=== PATIENT | male | born 1960 | race Caucasian/White ===

== ENCOUNTER 2023-10-14 08:08 | Outpatient (AMB) | payer OTHER, SELFPAY ==
--- NOTE | 2023-10-14 08:11 | A.OFFPC_ITS ---
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: No Accompanied by: Self / Same As Patient Allergies cat dander Allergy (Intermediate, Verified 10/14/23 08:50) Sneezing dog dander Allergy (Intermediate, Verified 10/14/23 08:50) Sneezing Seasonal Allergies Allergy (Intermediate, Verified 10/14/23 08:50) Sneezing Medication List - Last Reconciled 10/14/23 by JOSE Slater aspirin 81 mg PO DAILY atorvastatin 80 mg PO DAILY cholecalciferol (vitamin D3) 50 mcg PO DAILY clopidogrel 75 mg PO DAILY mecobalamin (vitamin B12) mcg PO metoprolol succinate ER 50 mg PO DAILY omega-3 acid ethyl esters 2 caps PO BID sertraline 100 mg PO DAILY Tobacco use date assessed: 10/14/23 Dental Screening Dental Screen Date: 10/14/23 Did you have a dental visit in the last 12 months?: No Did you have a dental problem in the last 6 months where you did not have access to dental care?: No Was dental information given to patient?: Patient has dentist HPI HPI Comments History of Present Illness Details No previous medical records available to me today 63-year-old male with CAD S/P triple byp ass 2016, psoriasis, plantar fasciatis , MDD, hyperlipidemia Health maintenance Colonoscopy PSA density within normal limits Vaccines flu shot to be given today [facility] Here today to establish care. We will be out of his medication today. Needs refills on everything. Reports that he is taking as directed. Offers no complaints. [facility] Medical History (Updated 10/14/23 @ 13:48 by LORRAINE Slater-MARISABEL) Stenosis of other cardiac prosthetic devices, implants and grafts, initial encounter Psoriasis Plantar fasciitis Shoulder injury Heart disease High cholesterol High blood pressure Surgical History (Updated 10/14/23 @ 08:46 by Elizabeth Hollins MA) H/O turbinectomy H/O endoscopic sinus surgery H/O nasal septoplasty Family History (Updated 10/14/23 @ 08:53 by Annette Vazquez CMA) Mother Ovarian cancer Father High blood pressure High blood cholesterol Cardiovascular disease Unknown High blood pressure High blood cholesterol Cardiovascular disease Social History Housing: House Patient Tobacco Use Status: Former Tobacco user e-Cigarette/Vaping Use: Never Used service: No Current occupational status: employed Current occupation: [employer] Cognitive needs: No Hearing needs: No Vision needs: Yes Questionnaire PHQ-9 Over the last 2 weeks, how often have you been bothered by any of the following problems? 1. Little interest or pleasure in doing things: nearly every day 2. Feeling down, depressed, or hopeless: not at all 3. Trouble falling or staying asleep, or sleeping too much: not at all 4. Feeling tired or having little energy: nearly every day 5. Poor appetite or overeating: several days 6. Feeling bad about yourself - or that you are a failure or have let yourself or your family down: not at all 7. Trouble concentrating on things, such as reading the newspaper or watching television: not at all 8. Moving or speaking so slowly that other people could have noticed. Or the opposite - being so fidgety or restless that you have been moving around a lot more than usual: not at all 9. Thoughts that you would be better off or of hurting yourself in some way: not at all Total score: 7 Depression Screening Interpretation: Positive Depression Screening Follow-up: Existing condition Depression Screening Done: Yes 19585 - PHQ-9 Billing: Yes Source: Developed by Drs. Manny Simpson, Isabella Pérez, David Herring and colleagues, with an educational stacie from [employer]. Thrive Questionnaire Date Thrive assessed: 10/14/23 I am a: Patient What is your living situation today?: I have a steady place to live Within the past 12 months, did the food you bought not last and you didn't have the money to get more?: Never true Within the past 12 months, did you worry whether your food would run out before you got money to buy more?: Never true Do you have trouble paying for medicines?: No Do you have trouble getting transportation to medical appointments?: No Do you have trouble paying your heating and electricity bill?: No Do you have trouble taking care of your child, family member or friend?: No Do you have trouble with day-to-day activities such as bathing, preparing meals, shopping, managing finances, etc.?: No Are you currently unemployed and looking for a job?: No Are you interested in more education?: No Please select the resources that you would like help with: None Currently or been in a relationship where the following occur: no concerns reported THRIVE Score: 0 AUDIT C Alcohol Use Questionnaire (AUDIT-C) 1. How often do you have a drink containing alcohol?: 4 or more times a week 2. How many drinks containing alcohol do you have on a typical day when you are drinking?: 1 or 2 3. How often do you have six or more drinks on one occasion?: Never Total Score: 4 Score Reviewed/Action Taken: Yes VEE-7 AMB Questionnaire VEE-7 Date VEE - 7 assessed: 10/14/23 Feeling nervous, anxious, or on edge: 2 = More than half the days Not being able to stop or control worryin = Not at all Worrying too much about different things: 0 = Not at all Trouble relaxin = Not at all Being so restless that it is hard to sit still: 0 = Not at all Becoming easily annoyed or irritable: 0 = Not at all Feeling afraid as if something awful might happen: 0 = Not at all Total VEE-7 score (0-4 normal; 5-9 mild; 10-14 moderate; 15-21 severe): 2 Source: Developed by Drs. Manny Simpson, Isabella Pérez, David Herring and colleagues, with an educational stacie from [employer]. VEE-7 Assessment Billing VEE-7 Assessment Tool: VEE-7 Assessment 32663 Review of Systems Const All systems reviewed & are unremarkable except as noted in HPI and below Physical exam (Primary Care) Vital Signs: Last Vital Signs Temp 97.7 F 10/14/23 08:16 Pulse 78 10/14/23 08:16 Resp 13 10/14/23 08:16 BP 128/76 10/14/23 08:16 Pulse Ox 98 10/14/23 08:16 Oxygen Delivery Method Room Air 10/14/23 08:16 BMI result Body Mass Index 36.1 BMI Assessment/Plan discussion: High BMI High, discussed plan: weight reduction Tobacco/Smoking Status: Tobacco use Status Tobacco use date assessed 10/14/23 10/14/23 08:30 Patient Tobacco Use Status Former Tobacco user 10/14/23 08:30 e-Cigarette/Vaping Use Never Used 10/14/23 08:30 PHQ-9: PHQ-9 Score PHQ-9: Total score 7 10/14/23 09:59 Depression Screening Interpretation: Positive Depression Screening Follow-up: Existing condition Thrive Assessment: Date of Thrive Assessment Date Thrive assessed 10/14/23 10/14/23 08:30 Currently or been in a relationship where the following occur: no concerns reported Const Other: alert oriented NAD MMM RRR LS CTAB Trace edema BLE Office Procedures Flu Questionnaire Does the patient have a severe egg allergy?: No Does the patient have severe life threatening allergies?: No Does the patient have a fever or illness today?: No Has the patient ever had Guillain-[place] Syndrome?: No Has the patient ever had any past reaction to a flu shot?: No Immunizations flu vacc [id number] 6mos up(PF) 60 mcg(15 mcgx4)/0.5 mL IM syringe Performing Provider: DARON Slater Performing Location: [facility] [place] [facility] Administered by: Heydi Chilel CMA on 10/14/23 09:59 Dose Route Admin Location Dispensed Lot Number Expiration Date NDC [employer] 0.5 mL IM Left Deltoid 0.5 mL [id number] 02/07/24 99148-906-86 [id number] VIS Given Date VIS Provided VIS Publication Date 10/14/23 Single Vaccine 21 Eligibility Eligibility Date Funding Source Not [facility] Eligible 10/14/23 Private Assessment and Plan Assessment & Plan (1) CAD (coronary artery disease) of artery bypass graft: Code(s): I25.810 - Atherosclerosis of coronary artery bypass graft(s) without angina pectoris Qualifiers: [place] vs. transplanted heart: [place] heart Associated angina: without angina Qualified Code(s): I25.810 - Atherosclerosis of coronary artery bypass graft(s) without angina pectoris Plan: Patient reports triple bypass in 2016. Needs a new referral to Cardiology. Referral placed a [facility]. He is currently managed on a baby aspirin, atorvastatin 80 mg, clopidogrel 75 mg daily and metoprolol succinate ER 50 mg p.o. daily (2) Hyperlipidemia: Comment: on atorvastatin 80 mg daily. Code(s): E78.5 - Hyperlipidemia, unspecified Qualifiers: Hyperlipidemia type: mixed hyperlipidemia Qualified Code(s): E78.2 - Mixed hyperlipidemia (3) B12 deficiency: Comment: Subjective report. Reports that he required injections in the past but stopped going due to the commitment. Has been maintained on oral B12 since this time. He is unsure if he was diagnosed with pernicious anemia. Record requested. At this time continue oral B12 supplement. Update labs today Code(s): E53.8 - Deficiency of other specified B group vitamins (4) High blood pressure: Comment: Blood pressure at goal less than 130/80 on metoprolol succinate ER 50 mg p.o. daily. Continue Code(s): I10 - Essential (primary) hypertension Qualifiers: Hypertension type: primary hypertension Qualified Code(s): I10 - Essential (primary) hypertension (5) Psoriasis: Comment: Active with Dermatology in the past. Needs a renewal of clotrimazole- betamethasone 1-0.05% cream. Sent today Code(s): L40.9 - Psoriasis, unspecified (6) Prostate cancer screening: Comment: PSA ordered today and within normal limits Code(s): Z12.5 - Encounter for screening for malignant neoplasm of prostate (7) MDD (major depressive disorder), recurrent episode: Comment: Maintained on sertraline 100 mg p.o. daily. Continue Code(s): F33.9 - Major depressive disorder, recurrent, unspecified Qualifiers: Major depression episode severity: mild Qualified Code(s): F33.0 - Major depressive disorder, recurrent, mild (8) Severe obesity with body mass index (BMI) of 36.0 to 36.9 with serious comorbidity: Comment: Lifestyle modifications encouraged Code(s): E66.01 - Morbid (severe) obesity due to excess calories; Z68.36 - Body mass index [BMI] 36.0-36.9, adult Plan This note is constructed using voice recognition software. While every effort has been made to ensure accuracy in pail tester, still errors may have been included Sometimes, these errors may affect the content or meaning of the given sentence . Total time spent caring for the patient today was 45 minutes. This includes time spent before the visit reviewing the chart, time spent during the visit, and time spent after the visit on documentation Return to the office November 16 as scheduled to follow up on labs and chronic conditions. Orders: Orders Comprehensive [place]. Panel Fast Today E53.8 - Deficiency of other specified B group vitamins, E78.5 - Hyperlipidemia, unspecified, I10 - Essential (primary) hypertension, L40.9 - Psoriasis, unspecified, Z12.5 - Encounter for screening for malignant neoplasm of prostate Microalbumin, Random (w Creat) Today E53.8 - Deficiency of other specified B group vitamins, E78.5 - Hyperlipidemia, unspecified, I10 - Essential (primary) hypertension, L40.9 - Psoriasis, unspecified, Z12.5 - Encounter for screening for malignant neoplasm of prostate TSH reflex Free T4 Today E53.8 - Deficiency of other specified B group vitamins, E78.5 - Hyperlipidemia, unspecified, I10 - Essential (primary) hypertension, L40.9 - Psoriasis, unspecified, Z12.5 - Encounter for screening for malignant neoplasm of prostate PSA,Total (Free>4and<10) Today E53.8 - Deficiency of other specified B group vitamins, E78.5 - Hyperlipidemia, unspecified, I10 - Essential (primary) hypertension, L40.9 - Psoriasis, unspecified, Z12.5 - Encounter for screening for malignant neoplasm of prostate Influenza [id number] Immunization Today Z23 - Encounter for immunization Lipid Panel Today E53.8 - Deficiency of other specified B group vitamins, E78.5 - Hyperlipidemia, unspecified, I10 - Essential (primary) hypertension, L40.9 - Psoriasis, unspecified, Z12.5 - Encounter for screening for malignant neoplasm of prostate Vitamin D 1,25 dihydroxy Today E53.8 - Deficiency of other specified B group vitamins, E78.5 - Hyperlipidemia, unspecified, I10 - Essential (primary) hypertension, L40.9 - Psoriasis, unspecified, Z12.5 - Encounter for screening for malignant neoplasm of prostate Complete Blood Count Auto Diff Today E53.8 - Deficiency of other specified B group vitamins, E78.5 - Hyperlipidemia, unspecified, I10 - Essential (primary) hypertension, L40.9 - Psoriasis, unspecified, Z12.5 - Encounter for screening for malignant neoplasm of prostate Vitamin B12 and Folate Today E53.8 - Deficiency of other specified B group vitamins, E78.5 - Hyperlipidemia, unspecified, I10 - Essential (primary) hypertension, L40.9 - Psoriasis, unspecified, Z12.5 - Encounter for screening for malignant neoplasm of prostate Referrals Cardiology Referral I25.810 - Atherosclerosis of coronary artery bypass graft(s) without angina pectoris Medications: New clotrimazole-betamethasone 1-0.05 % 1 appl topical BID 45 grams 3RF atorvastatin 80 mg PO DAILY 30 tabs 0RF clopidogrel 75 mg PO DAILY 30 tabs 0RF metoprolol succinate ER 50 mg PO DAILY 30 tabs 0RF sertraline 100 mg PO DAILY 30 tabs 0RF Coding Level of Care Code New Pt Level 4 (11452) Diagnoses Coronary artery disease involving coronary bypass graft of [place] heart without angina pectoris I25.810 [place] vs. transplanted heart: [place] heart Associated angina: without angina Mixed hyperlipidemia E78.2 Hyperlipidemia type: mixed hyperlipidemia B12 deficiency E53.8 Primary hypertension I10 Hypertension type: primary hypertension Psoriasis L40.9 Prostate cancer screening Z12.5 Mild episode of recurrent major depressive disorder F33.0 Major depression episode severity: mild Severe obesity with body mass index (BMI) of 36.0 to 36.9 with serious comorbidity E66.01; Z68.36 Additional Codes VEE-7 Assessment Billing - VEE-7 Assessment Tool: VEE-7 Assessment [id number] ([id number])
[2023-10-14 08:16] VITALS: BP 128/76; PULSE 78; RESP 13; TEMP 36.5; O2SAT 98; BMI 36.1
== END 2023-10-14 09:43 | disposition home or self-care (01) ==
PROVIDERS: PCP Nurse Practitioner Family; Visit Provider Nurse Practitioner Family
DX: F33.0 Major depressive disorder, recurrent, mild (principal); E66.01 Morbid (severe) obesity due to excess calories; Z68.36 Body mass index [BMI] 36.0-36.9, adult; Z23 Encounter for immunization; I25.810 Atherosclerosis of coronary artery bypass graft(s) without angina pectoris; E78.2 Mixed hyperlipidemia; E53.8 Deficiency of other specified B group vitamins; I10 Essential (primary) hypertension; L40.9 Psoriasis, unspecified; Z12.5 Encounter for screening for malignant neoplasm of prostate
CPT/HCPCS: 90471; 90686; 99204

== ENCOUNTER 2023-10-14 09:51 | Outpatient (REF) | payer OTHER, SELFPAY ==
[2023-10-14 11:19] LABS: MANUAL DIFF FLAG NO
[2023-10-14 11:25] LABS: Basophils Percent Auto 0.4 % (0-2); Eosinophils Absolute Auto 0.2 X10*3/uL (0.0-0.4); Eosinophils Percent Auto 2.8 % (0-4); Hematocrit 40.7 % (42.0-52.0); Hemoglobin 13.8 g/dl (14.0-18.0); Imm Gran Abs Auto 0.06 X10*3/uL (0.00-0.03); Imm Gran Pct Auto 0.8 % (0.0-0.4); Lymphocytes Absolute Auto 1.5 X10*3/uL (1.2-4.9); Lymphocytes Percent Auto 21.7 % (20-40); Mean Corpuscular HGB Conc 33.9 g/dl (31.0-36.0); Mean Corpuscular Hemoglobin 29.9 pg (27.0-33.0); Mean Corpuscular Volume 88.3 fL (80.0-98.0); Mean Platelet Volume 9.8 fL (9.4-12.4); Monocytes Absolute Auto 0.5 X10*3/uL (0.1-1.2); Monocytes Percent Auto 7.6 % (2-11); Neutrophils Absolute Auto 4.7 x10*3/uL (2.0-8.3); Neutrophils Percent Auto 66.7 % (45-73); Platelet Count 165 X10*3/uL (160-400); Red Blood Count 4.61 X10*6/uL (4.60-5.80); Red Cell Distribution Width 13.2 % (11.0-16.0); White Blood Count 7.1 X10*3/uL (4.8-10.8)
[2023-10-14 12:32] LABS: PSA,Total (Free>4and<10) 0.33 ng/mL (0.00-4.00)
[2023-10-14 12:44] LABS: Folate 8.2 ng/mL (> or = 4.0); Vitamin B12 308 pg/mL (200-900)
[2023-10-14 13:42] LABS: Alanine Aminotransferase 29 U/L (0-40); Albumin Level 4.1 g/dL (3.5-5.0); Alkaline Phosphatase 60 U/L (39-117); Anion Gap 9 (12-20); Aspartate Amino Transferase 18 U/L (5-37); Bilirubin Total 0.7 mg/dL (0.0-1.0); Blood Urea Nitrogen 14 mg/dL (9-16); Calcium 8.9 mg/dL (8.4-10.2); Carbon Dioxide 29 mmol/L (22-29); Chloride 103 mmol/L (96-108); Cholesterol 154 mg/dL (<200); Estimated Glomerular Filt Rate > 60; Glucose Fasting 123 mg/dL (60-99); HDL Cholesterol 36 mg/dL (>40); LDL Cholesterol Calculated 43 mg/dL (<100); Sodium 137 mmol/L (135-145); TSH reflex Free T4 1.08 uIU/mL (0.32-4.0); Total Protein 6.9 g/dL (6.5-8.0); Triglycerides 375 mg/dL (<150)
[2023-10-14 15:06] LABS: Creatinine Urine 117.36 mg/dL; Microalbum/Creatinine Ratio Ur 5.1 ug/mg cr (<30)
[2023-10-18 13:08] LABS: VITAMIN D (1,25 OH) D3 19 pg/mL; Vit D (1,25-Dihydroxy) Total 19 pg/mL (18-72); Vitamin D (1,25 OH) D2 <8 pg/mL
== END 2023-10-14 09:52 | disposition home or self-care (01) ==
LOC: HO.WFDLDS 09:51
PROVIDERS: Visit Provider Nurse Practitioner Family
DX: Z12.5 Encounter for screening for malignant neoplasm of prostate (principal); I10 Essential (primary) hypertension; L40.9 Psoriasis, unspecified; E53.8 Deficiency of other specified B group vitamins; E78.5 Hyperlipidemia, unspecified
CPT/HCPCS: 36415; 80053; 80061; 82043; 82570; 82607; 82652; 82746; 84153; 84443; 85025

== ENCOUNTER 2023-11-18 11:39 | Outpatient (AMB) | payer OTHER, SELFPAY ==
--- NOTE | 2023-11-18 11:42 | MHC.PC.OV ---
Vital Signs 11/18/23 11:44 Height 5 ft 10 in Weight 250 lb BMI 35.9 BP 132/80 Blood Pressure Location Lt brachial Position Sitting Respiration 13 Pulse 68 Pulse Source Pulse Oximeter Temp 98.1 F Temp Source Temporal Artery Scan Pulse Oximetry (%) 96 Oxygen Delivery Method Room Air Intake Visit Reasons: Follow up, per Becka Chen Note: Patient is here to establish care. Patient was seen in the walk-in for medications needed at that time. Patient reports R knee pain with intermittent swelling and pain with bending and walking. Patient reports alternating ice and heat with no relief. 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 Required: No Accompanied by: Self / Same As Patient Allergies cat dander Allergy (Intermediate, Verified 11/18/23 11:56) Sneezing dog dander Allergy (Intermediate, Verified 11/18/23 11:56) Sneezing Seasonal Allergies Allergy (Intermediate, Verified 11/18/23 11:56) Sneezing Medication List - Last Reconciled 11/18/23 by Becka Borden, LORRAINE- aspirin 81 mg PO DAILY atorvastatin 80 mg PO DAILY cholecalciferol (vitamin D3) 50 mcg PO DAILY clopidogrel 75 mg PO DAILY clotrimazole-betamethasone 1-0.05 % 1 appl topical BID mecobalamin (vitamin B12) mcg PO metoprolol succinate ER 50 mg PO DAILY omega-3 acid ethyl esters 2 caps PO BID sertraline 100 mg PO DAILY Tobacco use date assessed: 10/14/23 Dental Screening Dental Screen Date: 10/14/23 HPI HPI Comments History of Present Illness Details 63-year-old male with CAD S/P triple bypass 2016, psoriasis, plantar fasciatis , MDD, hyperlipidemia, Vit D def, Vit b12 def, IFG, NAHID on CPAP Health maintenance Colonoscopy thinks overdue, referral placed today PSA density within normal limits Vaccines flu shot [facility] Here today for chronic disease management and follow up of his labs. Labs from 10/14/2023 show mild anemia hemoglobin 13.8, hematocrit 40.7, normal electrolytes, normal renal function, fasting glucose 123, normal LFTs, elevated triglycerides 375, normal total cholesterol 154, LDL 43, HDL 36, PSA normal, low normal B12 of 308, low vitamin-D 19, normal TSH, normal urine microalbumin creatinine ratio I still do not have his medical records. Reports that he has sleep apnea and is maintained on CPAP machine. Wonders if he needs any adjustments. Reports issues with sleeping in the mask falling off. Referral placed to sleep medicine today. In regards to his cardiac health, he has his initial visit with [facility] in December. He reports no cardiac complaints other than the chronic swelling of his right lower extremity. His triglycerides are elevated otherwise his lipid profile is within normal limits. He reports that this is normal for him. He does admit to ETOH use. Tolerant and compliant of his statin. Defer to Cardiology on any changes at this time. Taking fish oil. Thinks that he is overdue for his colonoscopy. Reports last 1 was done at [facility]. I do not have any records on him. Referral placed [facility] for screening colonoscopy. New complaints today of right knee pain and swelling. This started about 3 weeks ago. No overt injury. Has been using topical CBD, icy hot and cold/hot packs. Was having pain at rest. However this is better. Swelling occurs on top of the knee cap. Was so bad he felt like he may need a cane. Affecting QOL as has been more sedentary. Denies hx of gout or surgery to that knee. Admits that the pain all the symptoms are relieved at the time of the visit today. Finally complains twitching of bilat calf muscles. Has been ongoing for years. Reports that he has had evaluation by Neurology and Rheumatology in the past with negative workup to include EMG and nerve conduction study and ultrasound. Once again I do not have any records. Advised that once I am able to review his records being come up with a potential treatment plan. [facility] Medical History (Updated 11/18/23 @ 12:40 by Becka Borden, [facility]) Stenosis of other cardiac prosthetic devices, implants and grafts, initial encounter Psoriasis Plantar fasciitis Shoulder injury Heart disease High cholesterol High blood pressure Surgical History (Updated 10/14/23 @ 08:46 by Elizabeth Hollins [facility]) H/O turbinectomy H/O endoscopic sinus surgery H/O nasal septoplasty Family History (Updated 10/14/23 @ 08:53 by Anntete Vazquez [facility]) Mother Ovarian cancer Father High blood pressure High blood cholesterol Cardiovascular disease Unknown High blood pressure High blood cholesterol Cardiovascular disease Social History Housing: House Patient Tobacco Use Status: Former Tobacco user e-Cigarette/Vaping Use: Never Used [employer] service: No Current occupational status: employed 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 Manny Simpson, Isabella Pérez, David Herring and colleagues, with an educational stacie from [employer]. Review of Systems Const All systems reviewed & are unremarkable except as noted in HPI and below Physical exam (Primary Care) Vital Signs: Last Vital Signs Temp 98.1 F 11/18/23 11:44 Pulse 68 11/18/23 11:44 Resp 13 11/18/23 11:44 BP 132/80 11/18/23 11:44 Pulse Ox 96 11/18/23 11:44 Oxygen Delivery Method Room Air 11/18/23 11:44 BMI result Body Mass Index 35.9 BMI Assessment/Plan discussion: High BMI High, discussed plan: weight reduction Tobacco/Smoking Status: Tobacco use Status Tobacco use date assessed 10/14/23 11/18/23 11:42 Patient Tobacco Use Status Former Tobacco user 11/18/23 11:42 e-Cigarette/Vaping Use Never Used 11/18/23 11:42 Thrive Assessment: Date of Thrive Assessment Date Thrive assessed 10/14/23 11/18/23 11:42 Const Other: alert oriented NAD MMM RRR LS CTAB Trace edema BLE R>L, decreased PP bilat, hairless half way down lower ext, skin intact. Right knee full active and passive ROM, no obvious deformity, redness or swelling. Amb w/ normal gait Assessment and Plan Assessment & Plan (1) B12 deficiency: Comment: Reports that he required injections in the past but stopped going due to the commitment. Has been maintained on oral B12 since this time. He is unsure if he was diagnosed with pernicious anemia. Record requested. b12 WNL 10/2023, At this time continue oral B12 supplement. Code(s): E53.8 - Deficiency of other specified B group vitamins (2) Hyperlipidemia: Comment: on atorvastatin 80 mg daily + Fish oil Triglycerides elevated otherwise WNL. Pt wants to defer to cards on change in statin. Initial appt 12/2023 Code(s): E78.5 - Hyperlipidemia, unspecified Qualifiers: Hyperlipidemia type: mixed hyperlipidemia Qualified Code(s): E78.2 - Mixed hyperlipidemia (3) IFG (impaired fasting glucose): Comment: will check hga1c at next OV. Provided dietary education to him. Code(s): R73.01 - Impaired fasting glucose (4) Vitamin D deficiency: Comment: VIt d low on 2000IU QD. Plan: DC and start weekly Vit D3 50,000IU x 12 weeks. Repeat labs Code(s): E55.9 - Vitamin D deficiency, unspecified (5) Screening for colon cancer: Comment: refer to [facility] [place] [place] GI Code(s): Z12.11 - Encounter for screening for malignant neoplasm of colon (6) Severe obesity with body mass index (BMI) of 36.0 to 36.9 with serious comorbidity: Comment: Lifestyle modifications encouraged Code(s): E66.01 - Morbid (severe) obesity due to excess calories; Z68.36 - Body mass index [BMI] 36.0-36.9, adult (7) NAHID on CPAP: Comment: refer to [facility] Sleep med for mgmt Code(s): G47.33 - Obstructive sleep apnea (adult) (pediatric) (8) Fasciculations of muscle: Comment: bilat lower ext ongoing for years reports work up w/ neuro and rheum, imaging and testing done and wnl however this cont. advised i will review his med recs and go from there. Code(s): R25.3 - Fasciculation (9) Right knee pain: Code(s): M25.561 - Pain in right knee Plan: check xray today, cont supportive care. (10) PAD (peripheral artery disease): Comment: Affecting BLE based on physical exam on statin, plavix and ASA monitor skin integrity Code(s): I73.9 - Peripheral vascular disease, unspecified Plan This note is constructed using voice recognition software. While every effort has been made to ensure accuracy in art installer, still errors may have been included Sometimes, these errors may affect the content or meaning of the given sentence . Total time spent caring for the patient today was 60 minutes. This includes time spent before the visit reviewing the chart, time spent during the visit, and time spent after the visit on documentation Orders: Orders XR knee RT 4V Today M25.561 - Pain in right knee Hemoglobin A1c 02/01/24 E53.8 - Deficiency of other specified B group vitamins, E55.9 - Vitamin D deficiency, unspecified, E66.01 - Morbid (severe) obesity due to excess calories, E78.2 - Mixed hyperlipidemia, R73.01 - Impaired fasting glucose, Z68.36 - Body mass index [BMI] 36.0-36.9, adult Comprehensive [place]. Panel Fast 02/01/24 E53.8 - Deficiency of other specified B group vitamins, E55.9 - Vitamin D deficiency, unspecified, E66.01 - Morbid (severe) obesity due to excess calories, E78.2 - Mixed hyperlipidemia, R73.01 - Impaired fasting glucose, Z68.36 - Body mass index [BMI] 36.0-36.9, adult Vitamin D 1,25 dihydroxy 02/01/24 E53.8 - Deficiency of other specified B group vitamins, E55.9 - Vitamin D deficiency, unspecified, E66.01 - Morbid (severe) obesity due to excess calories, E78.2 - Mixed hyperlipidemia, R73.01 - Impaired fasting glucose, Z68.36 - Body mass index [BMI] 36.0-36.9, adult Lipid Panel 02/01/24 E53.8 - Deficiency of other specified B group vitamins, E55.9 - Vitamin D deficiency, unspecified, E66.01 - Morbid (severe) obesity due to excess calories, E78.2 - Mixed hyperlipidemia, R73.01 - Impaired fasting glucose, Z68.36 - Body mass index [BMI] 36.0-36.9, adult Referrals Gastroenterology Referral Z12.11 - Encounter for screening for malignant neoplasm of colon Sleep Medicine Referral G47.33 - Obstructive sleep apnea (adult) (pediatric) Medications: New cholecalciferol (vitamin D3) 1,250 mcg PO QWEEK 12 caps 0RF Refilled atorvastatin 80 mg PO DAILY 30 tabs 0RF clopidogrel 75 mg PO DAILY 30 tabs 0RF metoprolol succinate ER 50 mg PO DAILY 30 tabs 0RF sertraline 100 mg PO DAILY 30 tabs 0RF metoprolol succinate ER 50 mg PO DAILY 90 tabs 1RF atorvastatin 80 mg PO DAILY 90 tabs 1RF clopidogrel 75 mg PO DAILY 90 tabs 1RF sertraline 100 mg PO DAILY 90 tabs 1RF Patient Instructions: RTO IN 3 MONTHS TO F/U ON CHRONIC MED CONDITIONS AND REPEAT LABS SOONER PRN [email or web address] [email or web address] Level of Care Code Est Pt Level 5 (98899) Diagnoses B12 deficiency E53.8 Mixed hyperlipidemia E78.2 Hyperlipidemia type: mixed hyperlipidemia IFG (impaired fasting glucose) R73.01 Vitamin D deficiency E55.9 Screening for colon cancer Z12.11 Severe obesity with body mass index (BMI) of 36.0 to 36.9 with serious comorbidity E66.01; Z68.36 NAHID on CPAP G47.33 Fasciculations of muscle R25.3 Right knee pain M25.561 PAD (peripheral artery disease) I73.9
[2023-11-18 11:44] VITALS: BP 132/80; PULSE 68; RESP 13; TEMP 36.7; O2SAT 96; BMI 35.9
== END 2023-11-18 12:31 | disposition home or self-care (01) ==
PROVIDERS: PCP Nurse Practitioner Family; Visit Provider Nurse Practitioner Family
DX: I73.9 Peripheral vascular disease, unspecified (principal); E66.01 Morbid (severe) obesity due to excess calories; Z68.36 Body mass index [BMI] 36.0-36.9, adult; E53.8 Deficiency of other specified B group vitamins; E78.2 Mixed hyperlipidemia; R73.01 Impaired fasting glucose; E55.9 Vitamin D deficiency, unspecified; Z12.11 Encounter for screening for malignant neoplasm of colon; G47.33 Obstructive sleep apnea (adult) (pediatric); R25.3 Fasciculation; M25.561 Pain in right knee
CPT/HCPCS: 99215; 99417

== ENCOUNTER 2023-11-18 13:10 | Outpatient (REF) | payer OTHER, SELFPAY ==
--- NOTE | ~2023-11-18 | XR_ITS ---
EXAMINATION: XR KNEE, RIGHT CLINICAL INFORMATION: Right knee pain COMPARISON: None available. TECHNIQUE: Four views of the right knee. FINDINGS: Mild medial and patellofemoral compartment osteoarthritis with small marginal osteophytes. Small joint effusion. No fracture or suspicious bone lesion. XR/XR knee RT 4V IMPRESSION: Mild medial and patellofemoral compartment osteoarthritis with a small joint effusion.
== END 2023-11-18 13:11 | disposition home or self-care (01) ==
LOC: HO.XRAY 13:10
PROVIDERS: PCP Nurse Practitioner Family; Visit Provider Nurse Practitioner Family
DX: M25.561 Pain in right knee (principal)
CPT/HCPCS: 73564

== ENCOUNTER 2023-12-31 14:16 | Outpatient (AMB) | payer OTHER, SELFPAY ==
--- NOTE | 2023-12-31 14:18 | MHC.OFFVIS ---
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 Patient reports his pain has been going on for about a month and a half and is a 8 on the 1-10 pain scale. He is using ice, heat, and blue emu for the pain with a little relief. He states the pain is worse when walking. He denies injury, injections, and surgery. Allergies cat dander Allergy (Intermediate, Verified 12/31/23 14:27) Sneezing dog dander Allergy (Intermediate, Verified 12/31/23 14:27) Sneezing Seasonal Allergies Allergy (Intermediate, Verified 12/31/23 14:27) Sneezing Medication List - Last Reconciled 12/31/23 by Jm Frazier MD aspirin 81 mg PO DAILY atorvastatin 80 mg PO DAILY cholecalciferol (vitamin D3) 1,250 mcg PO QWEEK clopidogrel 75 mg PO DAILY clotrimazole-betamethasone 1-0.05 % 1 appl topical BID mecobalamin (vitamin B12) mcg PO metoprolol succinate ER 50 mg PO DAILY omega-3 acid ethyl esters 2 caps PO BID sertraline 100 mg PO DAILY [facility] Medical History (Updated 01/01/24 @ 13:06 by Jm Frazier MD) Stenosis of other cardiac prosthetic devices, implants and grafts, initial encounter Psoriasis Plantar fasciitis Shoulder injury Heart disease High cholesterol High blood pressure Surgical History (Updated 10/14/23 @ 08:46 by Elizabeth Hollins [facility]) H/O turbinectomy H/O endoscopic sinus surgery H/O nasal septoplasty Family History (Updated 10/14/23 @ 08:53 by Annette Vazquez CMA) Mother Ovarian cancer Father High blood pressure High blood cholesterol Cardiovascular disease Unknown High blood pressure High blood cholesterol Cardiovascular disease Social History Housing: House Patient Tobacco Use Status: Former Tobacco user e-Cigarette/Vaping Use: Never Used service: No Current occupational status: employed 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 Cognitive needs: No Hearing needs: No Vision needs: Yes Physical Exam Vital Signs: BMI result Body Mass Index 35.9 Const Other: Well-nourished well-developed very friendly male awake alert and oriented x3 in no acute distress Extrem Other: Bilateral lower extremity examination shows good capillary refill, no skin lesions noted, normal sensation light touch Right knee examination shows a minimal effusion, mild crepitus with range of motion, pain with range of motion, no instability Results Reviewed Results Reviewed: X-rays of the patient's right knee show mild joint space narrowing, no acute bony abnormalities Assessment & Plan Assessment & Plan (1) Right knee pain: Code(s): M25.561 - Pain in right knee Category: Medical Plan Mr. Quinn presents with right knee pain due to early degenerative joint disease and possible meniscus tearing. I had a lengthy discussion with the patient regarding the treatment options. He wishes to hold off on a cortisone injection for now. I did give him a prescription for Celebrex. Activity modifications were also discussed at length with the patient. He will contact me prior to his follow-up appointment in 6 weeks should any questions or concerns arise. Feel free to call me at any time should questions regarding his orthopedic management arise. Thank you very much for asking me to see this very friendly gentleman. I spent 21 minutes in reviewing the patient's records and imaging studies, seeing the patient and documenting in the medical record. Medications: New celecoxib (Celebrex) 200 mg PO Q12H PRN 60 caps 2RF pain 1 month Coding Level of Care Code New Pt Level 3 (02016) Diagnoses Right knee pain M25.561
[2023-12-31 14:19] VITALS: BMI 35.9
== END 2023-12-31 14:40 | disposition home or self-care (01) ==
PROVIDERS: PCP Nurse Practitioner Family; Visit Provider Orthopaedic Surgery
DX: M25.561 Pain in right knee (principal)
CPT/HCPCS: 99203

== ENCOUNTER → 2023-12-31 14:16 | Outpatient (BNVA) | payer OTHER, SELFPAY | PROVIDERS: PCP Nurse Practitioner Family; Visit Provider Orthopaedic Surgery ==

== ENCOUNTER 2024-01-05 15:08 | Outpatient (AMB) | payer OTHER, SELFPAY ==
[2024-01-05 15:11] VITALS: BP 120/70; PULSE 69; BMI 35.4
--- NOTE | 2024-01-05 15:11 | A.OFFVIS_ITS ---
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 Required: No Allergies cat dander Allergy (Intermediate, Verified 12/31/23 14:27) Sneezing dog dander Allergy (Intermediate, Verified 12/31/23 14:27) Sneezing Seasonal Allergies Allergy (Intermediate, Verified 12/31/23 14:27) Sneezing Medication List - Last Reconciled 01/05/24 by Efrain Cochran MD aspirin 81 mg PO DAILY atorvastatin 80 mg PO DAILY celecoxib (Celebrex) 200 mg PO Q12H PRN 1 month cholecalciferol (vitamin D3) 1,250 mcg PO QWEEK clopidogrel 75 mg PO DAILY clotrimazole-betamethasone 1-0.05 % 1 appl topical BID coQ10 (ubiquinol) (Qunol Tony CoQ10) 100 mg PO BID mecobalamin (vitamin B12) mcg PO metoprolol succinate ER 50 mg PO DAILY omega-3 acid ethyl esters 2 caps PO BID sertraline 100 mg PO DAILY HPI Comments Details: John is here for consultation regarding coronary artery disease. Per available notes, it appears that he has had long history of coronary disease going back more than 20 years. He apparently had PCI with bare metal stent to LAD 9099. Subsequently InStent restenosis of LAD in 2002 treated by brachytherapy. Then drug-eluting stent to circumflex in 2006. One further LAD stent in 2008. Then he had CABG x3 in 2016, indication being acute occlusion of his coronary stent. Further details not clear. After, he states he has not really followed up with Cardiology. Prior to that, [facility] patient. Overall, he seems to be fine for the most part although activity level is quite low mainly because of musculoskeletal pains. Within that limitation, no angina or in fact any cardiac symptoms. History of smoking in the past but not anymore. He seems to be on long-term dual antiplatelet therapy. [facility] Medical History (Updated 01/05/24 @ 15:50 by Efrain Cochran MD) Stenosis of other cardiac prosthetic devices, implants and grafts, initial encounter Psoriasis Plantar fasciitis Shoulder injury Heart disease High cholesterol High blood pressure Surgical History (Updated 01/05/24 @ 15:50 by Efrain Cochran MD) Status post aorto-coronary artery bypass graft H/O turbinectomy H/O endoscopic sinus surgery H/O nasal septoplasty Family History (Updated 10/14/23 @ 08:53 by Annette Vazquez CMA) Mother Ovarian cancer Father High blood pressure High blood cholesterol Cardiovascular disease Unknown High blood pressure High blood cholesterol Cardiovascular disease Social History Housing: House Patient Tobacco Use Status: Former Tobacco user e-Cigarette/Vaping Use: Never Used service: No Current occupational status: employed 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 Cognitive needs: No Hearing needs: No Vision needs: Yes Review of Systems Const Denies chills, Denies daytime sleepiness, Denies fatigue, Denies fever(s), Denies frequent falls, Denies poor appetite, Denies snoring, Denies stops breathing during sleep, Denies weakness, Denies weight gain and Denies weight loss Eyes Denies loss of vision ENT Denies dizziness and Denies hearing loss Card Denies chest pain, Denies claudication, Denies leg edema, Denies lightheadedn ess, Denies palpitations, Denies dyspnea, Denies dyspnea on exertion and Denies orthopnea Resp Denies cough, Denies excessive phlegm production, Denies dyspnea, Denies dyspnea on exertion, Denies snoring and Denies wheezing GI Denies abdominal pain, Denies hematochezia, Denies change in bowel habits, Denies nausea and Denies vomiting Denies dysuria and Denies urinary frequency Musc Denies arthralgias, Denies muscle weakness, Denies numbness and Denies other (frequent falls) Skin/Breast Denies nail changes and Denies rash Neuro Denies Abnormal speech present, Denies dizziness, Denies frequent falls, Denies loss of vision, Denies memory loss, Denies numbness and Denies weakness Psych Denies depression and Denies memory loss Endo Denies fatigue and Denies palpitations Lino/Lymph Reports easy bruising and Reports other (anemia) Aller/Immun Denies wheezing Physical Exam Vital Signs: Last Vital Signs Pulse 69 01/05/24 15:11 BP 120/70 01/05/24 15:11 BMI result Body Mass Index 35.4 Const General: comfortable and no acute distress Orientation/consciousness: patient oriented x3 HEENT Other: Unremarkable Head: Yes normal to inspection Neck Neck: Yes normal visual inspection Chest Chest palpation & inspection: normal inspection of the chest Resp Auscultation: clear to auscultation bilaterally Cardio Palpation: normal PMI Heart sounds: S1 normal heart sound present, S2 normal heart sound present, no gallops, no murmurs and no rubs GI Palpation (GI): Soft to palpation Back/Spine/Pelvis Other: unremarkable Skin General skin exam: no rashes or lesions noted Neuro General: patient oriented x3 Speech: No Abnormal speech present Extrem General: Yes normal to inspection Psych Mental Status: mental status grossly normal Office Procedures EKG Details: EKG with sinus rhythm at 69/Min; old septal infarct; inverted T-waves in V1, V2, and lateral [place] [id number], Complete Assessment & Plan Assessment & Plan (1) Atherosclerotic cardiovascular disease: Code(s): I25.10 - Atherosclerotic heart disease of [place] coronary artery without angina pectoris Category: Medical (2) Status post aorto-coronary artery bypass graft: Code(s): Z95.1 - Presence of aortocoronary bypass graft Category: Surgical Plan Per available documentation, history of LAD PCI in 2008. Brachytherapy to ISR of LAD 2002. Circumflex PCI 2006. CABG 2016. Echocardiogram from 2016 with LVEF of 55-60%. Basal to mid inferolateral hypokinesis. Otherwise unremarkable. Carotid ultrasound from 60-1-49% stenosis in the right internal carotid artery. No stenosis in the left internal carotid artery. Will try to get the last office note from [facility]. He seems to be on long-term dual antiplatelet therapy and that may be continued considering the extensive coronary history as above. Continue beta-blockers and high-dose statins. He is also on omega-3 capsules. Triglycerides are on the higher side at 375 but he states it has been much hig her in the past. LDL seems well controlled at 43 mg/dL. We can plan on getting an echocardiogram and myocardial stress perfusion imaging study for further evaluation. He states he cannot exercise on the treadmill and hence can do pharmacological stress test with Lexiscan. Orders: Orders NM cardiolite stress test Today R07.2 - Precordial pain, Z95.1 - Presence of aortocoronary bypass graft CA echo transthoracic complete Today I25.10 - Atherosclerotic heart disease of [place] coronary artery without angina pectoris, Z95.1 - Presence of aortocoronary bypass graft CA lexiscan stress w kenn Today Z95.1 - Presence of aortocoronary bypass graft Coding Level of Care Code New Pt Level 4 (57707) Diagnoses Atherosclerotic cardiovascular disease I25.10 Status post aorto-coronary artery bypass graft Z95.1 CPT Codes EKG - CPT: 38994-[id number], Complete ([id number])
== END 2024-01-05 15:51 | disposition home or self-care (01) ==
PROVIDERS: PCP Nurse Practitioner Family; Visit Provider Internal Medicine
DX: I25.10 Atherosclerotic heart disease of native coronary artery without angina pectoris (principal); Z95.1 Presence of aortocoronary bypass graft
CPT/HCPCS: 93010; 99204

== ENCOUNTER → 2024-01-05 15:08 | Outpatient (BNVA) | payer OTHER, SELFPAY | PROVIDERS: PCP Nurse Practitioner Family; Visit Provider Internal Medicine | DX: I25.10 Atherosclerotic heart disease of native coronary artery without angina pectoris (principal); Z95.1 Presence of aortocoronary bypass graft; Z79.899 Other long term (current) drug therapy | CPT/HCPCS: 93005 ==

== ENCOUNTER 2024-02-15 09:12 | Outpatient (AMB) | payer OTHER, SELFPAY ==
--- NOTE | 2024-02-15 09:29 | A.OFFPC_ITS ---
Vital Signs 02/15/24 09:31 Height 5 ft 10 in Weight 243 lb BMI 34.9 BP 118/72 Blood Pressure Location Lt brachial Position Sitting Respiration 14 Pulse 73 Pulse Source Pulse Oximeter Pulse Oximetry (%) 100 Oxygen Delivery Method Room Air Intake Visit Reasons: 3 months 30 min w/me FU chronic conditions/labs Intake Note: Follow up. Allergies cat dander Allergy (Intermediate, Verified 02/15/24 09:45) Sneezing dog dander Allergy (Intermediate, Verified 02/15/24 09:45) Sneezing Seasonal Allergies Allergy (Intermediate, Verified 02/15/24 09:45) Sneezing Medication List - Last Reconciled 02/15/24 by Becka Borden, BUSINESS CONTINUITY GLOBAL DIRECTOR- aspirin 81 mg PO DAILY atorvastatin 80 mg PO DAILY celecoxib (Celebrex) 200 mg PO Q12H PRN 1 month clopidogrel 75 mg PO DAILY clotrimazole-betamethasone 1-0.05 % 1 appl topical BID coQ10 (ubiquinol) (Qunol Tony CoQ10) 100 mg PO BID mecobalamin (vitamin B12) mcg PO metoprolol succinate ER 50 mg PO DAILY omega-3 acid ethyl esters 2 caps PO BID sertraline 100 mg PO DAILY Tobacco use date assessed: 10/14/23 Dental Screening Dental Screen Date: 10/14/23 HPI HPI Comments History of Present Illness Details 63-year-old male with CAD S/P triple byp ass 2015, psoriasis, plantar fa sciatis , MDD, hyperlipidemia, Vit D def, Vit b12 def, IFG, NAHID on CPAP s/p LAD PCI in 2008. Brachytherapy to ISR of LAD 2002. Circumflex PCI 2006. CABG 2015. Health maintenance Colonoscopy referral placed PSA UTD within normal limits Vaccines flu shot UTD [facility] Here today for routine follow up of chronic conditions. Labs from today show normal electrolytes, normal renal function, fasting glucose 126, hemoglobin A1c 5.6%, normal LFTs, total cholesterol 156, LDL 55, HDL 37, triglycerides 323 *Vitamin D pending.* He has completed the 12 week course of high dose Vitamin D. While his triglycerides remain elevated they are improved from the last draw. He remains tolerant and compliant of his statin, BB, Plavix and daily aspirin along w/ omega 3. He did see Cardiology since the last office visit and this consult was reviewed today. Cards consult 12/2023 Per available documentation, history of LAD PCI in 2008. Brachytherapy to ISR of LAD 2002. Circumflex PCI 2006. CABG 2016. Echocardiogram from 2016 with LVEF of 55-60%. Basal to mid inferolateral hypokinesis. Otherwise unremarkable. Carotid ultrasound from 60-1-49% stenosis in the right internal carotid artery. No stenosis in the left internal carotid artery. Will try to get the last office note from [facility]. He seems to be on long-term dual antiplatelet therapy and that may be continued considering the extensive coronary history as above. Continue beta-blockers and high-dose statins. He is also on omega-3 capsules. Triglycerides are on the higher side at 375 but he states it has been much higher in the past. LDL seems well controlled at 43 mg/dL. We can plan on getting an echocardiogram and myocardial stress perfusion imaging study for further evaluation. He states he cannot exercise on the treadmill and hence can do pharmacological stress test with Lexiscan. In regards to his right knee he did see [facility] in December. They offered and he declined a cortisone injection. He was started on p.r.n. Celebrex which she continues to use with great effects. He reports that the knee is doing just fine and has no complaints today. Ortho consult reviewed. In regards to the testing that Cardiology has ordered he will be completing these next week. He has a initial intake appointment with sleep medicine in April. Exam: Weight down 3 lb since last office visit alert oriented NAD MMM RRR LS CTAB Trace edema BLE R>L, decreased PP bilat, hairless half way down lower ext, skin intact. Plan: Continue medications as prescribed. Continue to follow up with Cardiology as scheduled. Follow up with sleep Medicine as scheduled. Education provided today in the form of a handout for triglyceride management in the diet. Continue to encourage lifestyle modifications. LDL is at goal. Repeat fasting labs before the next office visit which will be in 3-4 months, to f/u on chronic conditions, sooner as needed. Will f/u on Vit d results and further mgmt once this is resulted. Completed 12 week high dose. [facility] Medical History (Updated 02/15/24 @ 13:44 by Becka Borden, BUSINESS CONTINUITY GLOBAL DIRECTOR-) Stenosis of other cardiac prosthetic devices, implants and grafts, initial encounter Psoriasis Plantar fasciitis Shoulder injury Heart disease High cholesterol High blood pressure Surgical History (Updated 01/05/24 @ 15:50 by Efrain Cochran MD) Status post aorto-coronary artery bypass graft H/O turbinectomy H/O endoscopic sinus surgery H/O nasal septoplasty Family History (Updated 10/14/23 @ 08:53 by Annette Vazquez CMA) Mother Ovarian cancer Father High blood pressure High blood cholesterol Cardiovascular disease Unknown High blood pressure High blood cholesterol Cardiovascular disease Social History Housing: House Patient Tobacco Use Status: Former Tobacco user e-Cigarette/Vaping Use: Never Used service: No Current occupational status: employed Current occupation: [employer] Cognitive needs: No Hearing needs: No Vision needs: Yes Questionnaire Thrive Questionnaire Date Thrive assessed: 10/14/23 VEE-7 AMB Questionnaire VEE-7 Date VEE - 7 assessed: 10/14/23 Source: Developed by Drs. Manny Simpson, Isabella Pérez, David Herring and colleagues, with an educational stacie from [employer]. Physical exam (Primary Care) Vital Signs: Last Vital Signs Pulse 73 02/15/24 09:31 Resp 14 02/15/24 09:31 BP 118/72 02/15/24 09:31 Pulse Ox 100 02/15/24 09:31 Oxygen Delivery Method Room Air 02/15/24 09:31 BMI result Body Mass Index 34.9 BMI Assessment/Plan discussion: High BMI High, discussed plan: lifestyle Tobacco/Smoking Status: Tobacco use Status Tobacco use date assessed 10/14/23 02/15/24 09:34 Patient Tobacco Use Status Former Tobacco user 02/15/24 09:34 e-Cigarette/Vaping Use Never Used 02/15/24 09:34 Thrive Assessment: Date of Thrive Assessment Date Thrive assessed 10/14/23 02/15/24 09:34 Assessment and Plan Assessment & Plan (1) Hyperlipidemia: Comment: on atorvastatin 80 mg daily + Fish oil Triglycerides elevated otherwise WNL. Code(s): E78.5 - Hyperlipidemia, unspecified Qualifiers: Hyperlipidemia type: mixed hyperlipidemia Qualified Code(s): E78.2 - Mixed hyperlipidemia (2) B12 deficiency: Comment: Reports that he required injections in the past but stopped going due to the commitment. Has been maintained on oral B12 since this time. He is unsure if he was diagnosed with pernicious anemia. Record requested. b12 WNL 10/2023, At this time continue oral B12 supplement. Code(s): E53.8 - Deficiency of other specified B group vitamins (3) Severe obesity with body mass index (BMI) of 36.0 to 36.9 with serious comorbidity: Comment: Lifestyle modifications encouraged Code(s): E66.01 - Morbid (severe) obesity due to excess calories; Z68.36 - Body mass index [BMI] 36.0-36.9, adult (4) IFG (impaired fasting glucose): Comment: normal hga1c Provided dietary education to him. Code(s): R73.01 - Impaired fasting glucose (5) Vitamin D deficiency: Comment: VIt d low on 2000IU QD. Plan: completed weekly Vit D3 50,000IU x 12 weeks. Repeat labs and update meds PRN, value pending . Code(s): E55.9 - Vitamin D deficiency, unspecified (6) NAHID on CPAP: Comment: refer to [facility] [place] mgmt Code(s): G47.33 - Obstructive sleep apnea (adult) (pediatric) (7) PAD (peripheral artery disease): Comment: Affecting BLE based on physical exam on statin, plavix and ASA monitor skin integrity Code(s): I73.9 - Peripheral vascular disease, unspecified (8) Atherosclerotic cardiovascular disease: Code(s): I25.10 - Atherosclerotic heart disease of [place] coronary artery without angina pectoris (9) Status post aorto-coronary artery bypass graft: Code(s): Z95.1 - Presence of aortocoronary bypass graft Plan This note is constructed using voice recognition software. While every effort has been made to ensure accuracy in director software, still errors may have been included Sometimes, these errors may affect the content or meaning of the given sentence . Total time spent caring for the patient today was 40 minutes. This includes time spent before the visit reviewing the chart, time spent during the visit, and time spent after the visit on documentation Orders: Orders Comprehensive [place]. Panel Fast 05/10/24 E53.8 - Deficiency of other specified B group vitamins, E55.9 - Vitamin D deficiency, unspecified, E66.01 - Morbid ( severe) obesity due to excess calories, E78.2 - Mixed hyperlipidemia, G47.33 - Obstructive sleep apnea (adult) (pediatric), I25.10 - Atherosclerotic heart disease of [place] coronary artery without angina pectoris, I73.9 - Peripheral vascular disease, unspecified, R73.01 - Impaired fasting glucose, Z68.36 - Body mass index [BMI] 36.0-36.9, adult, Z95.1 - Presence of aortocoronary bypass graft Lipid Panel 05/10/24 E53.8 - Deficiency of other specified B group vitamins, E55.9 - Vitamin D deficiency, unspecified, E66.01 - Morbid (severe) obesity due to excess calories, E78.2 - Mixed hyperlipidemia, G47.33 - Obstructive sleep apnea (adult) (pediatric), I25.10 - Atherosclerotic heart disease of [place] coronary artery without angina pectoris, I73.9 - Peripheral vascular disease, unspecified, R73.01 - Impaired fasting glucose, Z68.36 - Body mass index [BMI] 36.0-36.9, adult, Z95.1 - Presence of aortocoronary bypass graft Vitamin B12 and Folate 05/10/24 E53.8 - Deficiency of other specified B group vitamins, E55.9 - Vitamin D deficiency, unspecified, E66.01 - Morbid (severe) obesity due to excess calories, E78.2 - Mixed hyperlipidemia, G47.33 - Obstructive sleep apnea (adult) (pediatric), I25.10 - Atherosclerotic heart disease of [place] coronary artery without angina pectoris, I73.9 - Peripheral vascular disease, unspecified, R73.01 - Impaired fasting glucose, Z68.36 - Body mass index [BMI] 36.0-36.9, adult, Z95.1 - Presence of aortocoronary bypass graft Hemoglobin A1c 05/10/24 E53.8 - Deficiency of other specified B group vitamins, E55.9 - Vitamin D deficiency, unspecified, E66.01 - Morbid (severe) obesity due to excess calories, E78.2 - Mixed hyperlipidemia, G47.33 - Obstructive sleep apnea (adult) (pediatric), I25.10 - Atherosclerotic heart disease of [place] coronary artery without angina pectoris, I73.9 - Peripheral vascular disease, unspecified, R73.01 - Impaired fasting glucose, Z68.36 - Body mass index [BMI] 36.0-36.9, adult, Z95.1 - Presence of aortocoronary bypass graft Vitamin D 25-OH Total 05/10/24 E55.9 - Vitamin D deficiency, unspecified Coding Level of Care Code Est Pt Level 5 (43643) Complex EM visit Add On G2211 Diagnoses Mixed hyperlipidemia E78.2 Hyperlipidemia type: mixed hyperlipidemia B12 deficiency E53.8 Severe obesity with body mass index (BMI) of 36.0 to 36.9 with serious comorbidity E66.01; Z68.36 IFG (impaired fasting glucose) R73.01 Vitamin D deficiency E55.9 NAHID on CPAP G47.33 PAD (peripheral artery disease) I73.9 Atherosclerotic cardiovascular disease I25.10 Status post aorto-coronary artery bypass graft Z95.1
[2024-02-15 09:31] VITALS: BP 118/72; PULSE 73; RESP 14; O2SAT 100; BMI 34.9
== END 2024-02-15 10:06 | disposition home or self-care (01) ==
PROVIDERS: PCP Nurse Practitioner Family; Visit Provider Nurse Practitioner Family
DX: E78.2 Mixed hyperlipidemia (principal); E66.01 Morbid (severe) obesity due to excess calories; I73.9 Peripheral vascular disease, unspecified; Z68.36 Body mass index [BMI] 36.0-36.9, adult; E53.8 Deficiency of other specified B group vitamins; R73.01 Impaired fasting glucose; E55.9 Vitamin D deficiency, unspecified; G47.33 Obstructive sleep apnea (adult) (pediatric); I25.10 Atherosclerotic heart disease of native coronary artery without angina pectoris; Z95.1 Presence of aortocoronary bypass graft
CPT/HCPCS: 99215; G2211

== ENCOUNTER 2024-02-15 09:57 | Outpatient (REF) | payer OTHER, SELFPAY ==
[2024-02-15 11:17] LABS: Estimated Average Glucose 114 mg/dL; Hemoglobin A1c % 5.6 % (<6.0)
[2024-02-15 11:39] LABS: Alanine Aminotransferase 25 U/L (0-40); Albumin Level 4.2 g/dL (3.5-5.0); Alkaline Phosphatase 65 U/L (39-117); Anion Gap 12 (12-20); Aspartate Amino Transferase 22 U/L (5-37); Bilirubin Total 0.7 mg/dL (0.0-1.0); Blood Urea Nitrogen 15 mg/dL (9-16); Calcium 9.3 mg/dL (8.4-10.2); Carbon Dioxide 27 mmol/L (22-29); Chloride 104 mmol/L (96-108); Cholesterol 156 mg/dL (<200); Estimated Glomerular Filt Rate > 60; Glucose Fasting 126 mg/dL (60-99); HDL Cholesterol 37 mg/dL (>40); LDL Cholesterol Calculated 55 mg/dL (<100); Potassium 3.8 mmol/L (3.3-5.1); Sodium 139 mmol/L (135-145); Total Protein 6.9 g/dL (6.5-8.0); Triglycerides 323 mg/dL (<150)
[2024-02-19 19:38] LABS: VITAMIN D (1,25 OH) D3 26 pg/mL; Vit D (1,25-Dihydroxy) Total 26 pg/mL (18-72); Vitamin D (1,25 OH) D2 <8 pg/mL
== END 2024-02-15 09:58 | disposition home or self-care (01) ==
LOC: HO.WFDLDS 09:57
PROVIDERS: Visit Provider Nurse Practitioner Family
DX: E55.9 Vitamin D deficiency, unspecified (principal); R73.01 Impaired fasting glucose; E66.01 Morbid (severe) obesity due to excess calories; Z68.36 Body mass index [BMI] 36.0-36.9, adult; E53.8 Deficiency of other specified B group vitamins; E78.2 Mixed hyperlipidemia
CPT/HCPCS: 36415; 80053; 80061; 82652; 83036

== ENCOUNTER → 2024-02-23 08:54 | Outpatient (REF) | payer OTHER, SELFPAY ==
--- NOTE | ~2024-02-23 | NM_ITS ---
Lexiscan Myocardial perfusion study Indication: Coronary artery disease Technique: The patient was brought in for a Lexiscan perfusion study on 02/23/2024 and was injected 0.4 mg of Lexiscan intravenously. Within a minute of this injection 40 mCi of sestamibi was given intravenously. Images were obtained using the SPECT gamma camera interlaced with the gating device. Images were obtained in supine position. Resting perfusion study was performed on 02/24/2024. Patient was administered 40 mCi of sestamibi intravenously at rest. Images were then obtained in supine position. Images were processed with the software and compared side to side in short axis, horizontal long axis and vertical long axis views. Total DLP 123mGy-cm. Findings: Raw acquisition reviewed. The stress perfusion study showed diminished tracer uptake along the inferolateral wall. Lateral wall towards the basal aspect. There is improvement with CT attenuation correction and hence could have components of diaphragmatic attenuation artifact. The gated study shows diminished LV systolic function with calculated LVEF of 42%. LV cavity is normal in size. The gated study shows reduced thickening and contractility in the inferolateral/lateral wall. Resting study shows reduced tracer uptake in the inferolateral wall. Improvement with CT attenuation correction suggestive of some components of diaphragmatic attenuation artifact. Gating at rest reveals ejection fraction at 47%. The findings are consistent with reversible basal lateral defect. Reversible basal to mid inferolateral defect which also has some fixed components. FL/FL cardiolite stress test Impression: 1. Myocardial perfusion imaging study shows ischemia in the basal lateral wall. Mixed ischemia/infarct pattern in the basal to mid inferolateral wall. 2. Gated LVEF is 42% during stress and 47% during rest. 3. Transient ischemic dilatation not present. EKG component of the test reported separately.
--- NOTE | 2024-02-23 08:57 | CA_ITS ---
Acquisition Time: 2024-02-23 09:46:22 Total Exercise Time: 00:02:00 Test Indications: CP Medications: SEE H Protocol: LEXISCAN Max HR: 108 BPM 68% of Pred: 158 BPM Max BP: 142/066 mmHG Max Work Load: 1.0 METS Pharmacological stress test with Lexiscan injection while sitting and kicking his legs, without anginal symptoms, without arrhythmias, with normotenisve response to injection, with St changes in leads 1, 2, aVL, aVR, V1, V2, V4-V6. Aminophylline 75mg IVP given to reverse Lexiscan. EKG returned to baseline Nuclear images pending. Test reviewed with Dr. Alexander Referred By: Efrain Cochran Overread By: Hiral Greenfield
--- NOTE | 2024-02-23 08:57 | CA_ITS ---
Transthoracic Echocardiogram Patient (Last, First, Middle): John Quinn J Gender: Male Date of : 1960 Age: 63 Procedure Date: 02/23/2024 Procedure Type: Transthoracic Echocardiogram Location: OP Height: 177.8 cm Weight: 111.13 kg BSA: 2.28 m2 Heart Rate: 68 bpm BP: 120 / 72 mmHg Account Advisor: BAUDILIO Referring MD: Efrain Cochran MD Plate Developer: Jon Alexander MD Symptoms: I25.10 - Atherosclerotic heart disease of [place] coronary artery without... Study Quality: Adequate w contrast ECG Rhythm: Sinus Conclusions: - 1. Technically limited study 2. Normal LV ejection fraction of 60-65% with grade 2 diastolic dysfunction 3. Normal cardiac valvular Doppler 4. Upper limits of normal ascending aortic size at 3.5 cm Findings Procedure Information Contrast agent, definity, is being given per protocol without apparent complications. The quality of the study was technically difficult. The study quality is limited by patients body habitus. Left Ventricle Normal left ventricular size, thickness, and systolic function. The visually estimated ejection fraction is between 60-65%. Spectral Doppler is indicative of a pseudonormal filling pattern. E/E prime ratio is >15, consistent with elevated filling pressures. Evidence suggests grade II (moderate) diastolic dysfunction. Wall Motion Rest Echo Findings The basal inferior segment is hypokinetic. All other scored wall segments showed normal motion. Right Ventricle Mildly increased right ventricular cavity size. There is mildly decreased right ventricular systolic function. Atria The left atrium is normal in size. There is no evidence of interatrial shunt. The right atrium is normal in size. Aortic Valve The aortic valve structure and function is likely normal. There is mild calcification of the aortic valve. There is no aortic valve stenosis. There is no aortic valve regurgitation. Mitral Valve There is mild anterior and posterior mitral leaflet thickening. There is mild mitral annular calcification. There is trace mitral valve regurgitation. There is no mitral valve stenosis. Pulmonic Valve The pulmonic valve is likely normal. Tricuspid Valve Likely normal tricuspid valve structure and function. Tricuspid regurgitation envelope is inadequate for calculation of right ventricular systolic pressure. Great Vessels The aorta was not well visualized. The pulmonary artery was not well visualized. Venous The inferior vena cava is mildly dilated and collapses less than 50% with inspiration. Pericardium/Pleural The pericardium was not well visualized. Prior Study Comparison No prior study available for comparison. Measurements 2D Linear Measurements IVSd: 0.78 0.6-0.9/0.6-1.0 cm LVIDd: 5.90 3.9-5.3/4.2-5.9 cm LVIDd Index: 2.59 2.4-3.2/2.2-3.1 cm/m2 LVIDs: 4.22 2.0-3.6 cm LVPWd: 0.88 0.7-1.1 cm LA Diam: 4.40 2.7-3.8/3.0-4.0 cm LAIDs Index: 1.93 1.5-2.3 cm/m2 LV Mass: 234.70 67-162/88-224 g LV Mass Index: 102.94 43-95/49-115 g/m2 LVOT Diam: 2.40 3.0+(-)1.3 cm 2D Systolic Function EF 4C: 64.10 >55% EF 2C: 63.70 >55% EF BiP: 63.10 >55% Mitral Valve MV Pk E: 1.03 MV PK A: 1.06 MV Decel Time: 213.00 E/A: 1.00 E'Lateral: 6.09 E'Medial: 6.31 E/E' Med: 16.30 E/E' Lat: 16.90 PHT: 62.00 MVA PHT: 3.55 Decel [place]: 4.85 Aortic Valve AoV Pk Stevie: 1.03 AoV Pk Grad: 4.00 MARY ANNE: 3.62 LVOT LVOT Pk Stevie: 0.95 LVOT Mn Stevie: 0.64 LVOT VTI: 0.22 LVOT Pk Grad: 4.00 LVOT Mn Grad: 2.00 LVOT Diam: 2.40 LVOT Area: 4.52 Diastolic Function MV Pk E: 1.03 MV Pk A: 1.06 E/A: 1.00 E'Medial: 6.31 E/E' Med: 16.30 E' Laterial: 6.09 E/E' Lat: 16.90 Right Ventricle TAPSE (mm): 16.50 TVS' Stevie: 11.10 Tricuspid Valve RA Press: 8.00 Great Vessels Aorta Sinus of Valsalva: 3.90 2.0-3.[address] [place]: 2.99 1.7-3.4 cm Ao Asc: 3.50 2.1-3.4 cm Pulmonary Veins Pulm Vein S/D 1.00 Pulmonary Valve PV Pk Stevie: 0.95 Peak PV Grad: 4.00 Updated in Other Vendor System with Status of Final Jon Alexander MD electronically signed on 02/24/2024 2:07:01 PM with status of Final
== END ==
LOC: HO.CARD 08:54
PROVIDERS: Visit Provider Internal Medicine
DX: R07.2 Precordial pain (principal); I25.10 Atherosclerotic heart disease of native coronary artery without angina pectoris; Z95.1 Presence of aortocoronary bypass graft
CPT/HCPCS: 78452; 93017; 93306; A9500; J0280; J2785; Q9957

== ENCOUNTER → 2024-02-23 08:57 | Outpatient (BNV) | payer OTHER, SELFPAY | PROVIDERS: Visit Provider Nurse Practitioner | DX: I25.10 Atherosclerotic heart disease of native coronary artery without angina pectoris (principal); I51.89 Other ill-defined heart diseases; I35.8 Other nonrheumatic aortic valve disorders; I34.81 Nonrheumatic mitral (valve) annulus calcification | CPT/HCPCS: 78452; 93016; 93018; 93320; 93325; 93350; 93352 ==

== ENCOUNTER 2024-03-24 14:15 | Outpatient (AMB) | payer OTHER, SELFPAY ==
[2024-03-24 14:18] VITALS: BP 110/60; PULSE 72; BMI 34.5
--- NOTE | 2024-03-24 14:18 | A.OFFVIS_ITS ---
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: No Accompanied by: Self / Same As Patient Allergies cat dander Allergy (Intermediate, Verified 02/15/24 09:45) Sneezing dog dander Allergy (Intermediate, Verified 02/15/24 09:45) Sneezing Seasonal Allergies Allergy (Intermediate, Verified 02/15/24 09:45) Sneezing Medication List - Last Reconciled 03/24/24 by Efrain Cochran MD aspirin 81 mg PO DAILY atorvastatin 80 mg PO DAILY celecoxib (Celebrex) 200 mg PO Q12H PRN 1 month clopidogrel 75 mg PO DAILY clotrimazole-betamethasone 1-0.05 % 1 appl topical BID coQ10 (ubiquinol) (Qunol Tony CoQ10) 100 mg PO BID mecobalamin (vitamin B12) mcg PO metoprolol succinate ER 50 mg PO DAILY omega-3 acid ethyl esters 2 caps PO BID sertraline 100 mg PO DAILY HPI Comments Details: John returns for follow-up. Recently seen in consultation regarding coronary artery disease. Per available notes, it appears that he has had long history of coronary disease going back more than 20 years. He apparently had PCI with bare metal stent to LAD 1998. Subsequently InStent restenosis of LAD in 2002 treated by brachytherapy. Then drug-eluting stent to circumflex in 2006. One further LAD stent in 2008. Then he had CABG x3 in 2016, indication being acute occlusion of his coronary stent. Further details not clear. After, he states he has not really followed up with Cardiology. Prior to that, [facility] Cardiology patient. Last time, he stated that he was fine but today, he states he gets some random chest pains but not clearly exertional. He has always thought it is sternotomy pain. He states that it can happen the day after he does some strenuous physical work but not during the actual activity. Hence not clear if it is muscular or not. He feels deconditioned otherwise. He can get short of breath with some activities but not always. Lots of musculoskeletal pains. Activity is limited because of that. He has completed an echocardiogram and stress test. PFSH Medical History (Updated 02/15/24 @ 13:44 by Becka Borden, [facility]) Stenosis of other cardiac prosthetic devices, implants and grafts, initial encounter Psoriasis Plantar fasciitis Shoulder injury Heart disease High cholesterol High blood pressure Surgical History Status post aorto-coronary artery bypass graft H/O turbinectomy H/O endoscopic sinus surgery H/O nasal septoplasty Family History Mother Ovarian cancer Father High blood pressure High blood cholesterol Cardiovascular disease Unknown High blood pressure High blood cholesterol Cardiovascular disease Social History (Updated 03/24/24 @ 14:22 by Pam Chilel CMA) Housing: House Alcohol intake: current Comment: social Patient Tobacco Use Status: Former Tobacco user e-Cigarette/Vaping Use: Never Used service: No Current occupational status: employed 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 Cognitive needs: No Hearing needs: No Vision needs: Yes Review of Systems Const Denies chills, Denies fatigue, Denies fever(s), Denies weight gain and Denies weight loss ENT Denies dizziness Card Denies chest pain, Denies leg edema, Denies lightheadedness, Denies palpitations, Denies dyspnea on exertion, Denies orthopnea and Denies other Resp Denies cough and Denies dyspnea on exertion GI Denies hematochezia and Denies change in stool character Musc Denies abnormal gait, Denies muscle weakness, Denies numbness, Denies radiating pain into limb and Denies tingling Neuro Denies abnormal gait, Denies dizziness, Denies numbness and Denies tingling Endo Denies fatigue and Denies palpitations Physical Exam Vital Signs: Last Vital Signs Pulse 72 03/24/24 14:18 BP 110/60 03/24/24 14:18 BMI result Body Mass Index 34.5 Const General: comfortable and no acute distress Orientation/consciousness: patient oriented x3 HEENT Other: Unremarkable Head: Yes normal to inspection Neck Neck: Yes normal visual inspection Chest Chest palpation & inspection: normal inspection of the chest Resp Auscultation: clear to auscultation bilaterally Cardio Palpation: normal PMI Heart sounds: S1 normal heart sound present, S2 normal heart sound present, no gallops, no murmurs and no rubs GI Palpation (GI): Soft to palpation Back/Spine/Pelvis Other: unremarkable Skin General skin exam: no rashes or lesions noted Neuro General: patient oriented x3 Extrem General: Yes normal to inspection Psych Mental Status: mental status grossly normal Assessment & Plan Assessment & Plan (1) Atherosclerotic cardiovascular disease: Code(s): I25.10 - Atherosclerotic heart disease of [place] coronary artery without angina pectoris Category: Medical (2) Status post aorto-coronary artery bypass graft: Code(s): Z95.1 - Presence of aortocoronary bypass graft Category: Surgical Plan Per available documentation, history of LAD PCI in 1998, 2008. Brachytherapy to ISR of LAD 2002. Circumflex PCI 2006. CABG 2016. Echocardiogram from 2016 with LVEF of 55-60%. Basal to mid inferolateral hypokinesis. Otherwise unremarkable; in the more recent study from last month, LVEF stated to be 60-65%; moderate diastolic dysfunction; basal inferior hypokinesis. No significant valvular issues. Myocardial perfusion imaging study from last month shows ischemia in the basal lateral wall; mixed ischemia/infarct pattern in the basal to mid inferolateral wall. Gated LVEF 42% during stress and 47% during rest. Prior carotid ultrasound- 1-49% stenosis in the right internal carotid artery. No stenosis in the left internal carotid artery. We contacted [facility] Cardiology but according to them, no information on file. Findings discussed with patient. Overall, symptoms are quite atypical and he rosales s some random chest pains not during exertion but a few days later. Hence not clear what they are. He also has limited activity from musculoskeletal pains and probably deconditioned as well. We discussed about a diagnostic catheterization but patient feels he would rather just hold off for now. He is worried about complications extra. He would like to just start light activity like walking and then see how he feels. He would like to get reassessed in about 3 months and then decide at that time. In the interim, he may stay on dual antiplatelet therapy -it seems he has been on this skilled nursing considering his coronary history. Otherwise, continue beta-blockers and high-dose statins. He is also on omega-3 capsules. His LDL is well controlled but triglycerides on the higher side but he states it was even higher in the past. We discussed emergency precautions including active chest pain which will be an emergency and he will need to call 911 and present to the emergency room. Otherwise, we will see him in about 3 months' time. Advised him to avoid any strenuous activity otherwise. Light activities okay. Coding Level of Care Code Est Pt Level 4 (12567) Diagnoses Atherosclerotic cardiovascular disease I25.10 Status post aorto-coronary artery bypass graft Z95.1
== END 2024-03-24 14:46 | disposition home or self-care (01) ==
PROVIDERS: PCP Nurse Practitioner Family; Visit Provider Internal Medicine
DX: I25.10 Atherosclerotic heart disease of native coronary artery without angina pectoris (principal); Z95.1 Presence of aortocoronary bypass graft
CPT/HCPCS: 99214

== ENCOUNTER → 2024-03-24 14:15 | Outpatient (BNVA) | payer OTHER, SELFPAY | PROVIDERS: PCP Nurse Practitioner Family; Visit Provider Internal Medicine ==

== ENCOUNTER 2024-06-09 15:43 | Outpatient (AMB) | payer OTHER, SELFPAY ==
--- NOTE | 2024-06-09 15:46 | MHC.PC.OV ---
Vital Signs 06/09/24 15:48 06/09/24 16:32 Height 5 ft 10 in Weight 248 lb 6 oz BMI 35.6 BP 142/80 H 124/76 Blood Pressure Location Lt brachial Rt brachial Position Sitting Sitting Respiration 15 Pulse 104 H 70 Pulse Source Pulse Oximeter Auscultation Pulse Oximetry (%) 95 Oxygen Delivery Method Room Air Intake Visit Reasons: 6M FOLLOW UP Intake Note: follow up Allergies cat dander Allergy (Intermediate, Verified 06/09/24 16:25) Sneezing dog dander Allergy (Intermediate, Verified 06/09/24 16:25) Sneezing Seasonal Allergies Allergy (Intermediate, Verified 06/09/24 16:25) Sneezing Medication List - Last Reconciled 06/09/24 by Becka Borden, SOFTWARE CONFIGURATION ANALYST- aspirin 81 mg PO DAILY atorvastatin 80 mg PO DAILY celecoxib (Celebrex) 200 mg PO Q12H PRN 1 month clopidogrel 75 mg PO DAILY clotrimazole-betamethasone 1-0.05 % 1 appl topical BID coQ10 (ubiquinol) (Qunol Tony CoQ10) 100 mg PO BID mecobalamin (vitamin B12) mcg PO metoprolol succinate ER 50 mg PO DAILY omega-3 acid ethyl esters 2 caps PO BID sertraline 100 mg PO DAILY Tobacco use date assessed: 10/14/23 Dental Screening Dental Screen Date: 10/14/23 HPI HPI Comments History of Present Illness Details 64-year-old male with CAD S/P triple bypass 2015, psoriasis, plantar fasciatis , MDD, hyperlipidemia, Vit D def, Vit b12 def, IFG, NAHID on CPAP, seasonal allergies, obesity s/p LAD PCI in 2008. Brachytherapy to ISR of LAD 2002. Circumflex PCI 2006. CABG 2015. Health maintenance Colonoscopy referral placed but could not make appt, will do cologaurd ordered today PSA UTD within normal limits Vaccines flu shot UTD. Will get COVID at pharmacy [facility] Here today to f/u on chronic conditions He states that since his last office visit he had his Cardiology consults. A nuclear stress test was also performed. During his follow up for the results there was a mention of a cardiac catheterization. The patient was unsure as to whether or not he actually needs the cardiac catheterization. Admits that he did not completely understand what was being said to him during the office visit and he did not ask for clarity. In regards to his cardiac symptoms he reports that he continues to have the chest pains that he was complaining of previously. He thinks that likely the chest pain is muscular status post sternotomy. His pain occurs while lifting things like mulch, he can also have pain when just rolling over in bed. He denies any shortness of breath or diaphoresis with these episodes. They are short-lived. His next routine follow up with Cardiology as in July. I reviewed the consult notes as well as the testing with him today. When asked him how I could help remedy the situation he asked for me to reach out to Cardiology and just ask if a cardiac catheterization is required and if so to ask them to schedule. >> I have sent a note to Dr. Cochran's work group to follow up on this. In addition he is interested in having his hernia repaired and we will need cardiac clearance. Is unsure if he requires a cardiac catheterization prior to being medically cleared for surgery. He does not yet have a surgical date. He was not able to make his Gastroenterology appointment which was for a screening colonoscopy due to his work schedule. He denies a personal or family history of colon cancer. Denies any new GI concerns. He was open and willing to pursue Cologuard >> ordered today Referred to sleep medicine for sleep apnea with CPAP management. Unfortunately he was not able to make this appointment. Would like a new referral placed. >done today Has seasonal allergies suffering from watery eyes and scratchy throat. Uses [id number] oral antihistamines with very mild relief. Reviewed the use of Flonase versus antihistamine eyedrops. Already uses dry eyedrops therefore would like to use Flonase. New prescription sent to the pharmacy. BMI greater than 35. Admits to not exercising or watching his diet however would like help losing weight. 15 minutes spent Discussing different forms of medications to help with weight loss. Discouraged the use of GLP-1s due to the need to use lifelong, weight gain after discontinuation, cost and cancer risk. Educated about the use of Wellbutrin which can be used in patients without a seizure history. This medication works by blocking out the reward center related to mindless eating. It also has a mild stimulating effect. The side effect profile includes mild anxiety as well as a slight dizzy sensation. Another medication used is metformin, this is a diabetic medication. This medication has GI side effects. But can be very beneficial in aiding with weight loss in patients without diabetes. Topiramate was also discussed. This is a seizure medication with side effect profile that includes need to monitor LFTs as well as blood counts. One of the side effects is weight loss. Another medication, Phentermine is a stimulant/controlled substance. This is an anorexient that is used short-term medication used. =. Finally the use of a medication called Contrave, which is Wellbutrin + naltrexone can be used. The brand name is usually not cover therefore would have to prescribe the 2 medications individually. This medication works just as the Wellbutrin; naltrexone aides in further blocking of the reward center to aide in wt loss. After discussion of the above, the patient wishes to proceed with Wellbutrin. Medication review complete. Refill sent in as requested. Wonders if he can decrease his [place] from 2 tablets twice a day down to 1 tablet twice per day. This is okay with me and I have sent in a script as such. Overdue for labs. Advised to get done. Exam: alert oriented NAD No carotid bruit bilat MMM RRR LS CTAB Trace edema BLE R>L, decreased PP bilat, hairless half way down lower ext, skin intact. Return to the office in 3 months to follow up on Wellbutrin start along with chronic conditions. Sooner as needed. This note is constructed using voice recognition software. While every effort has been made to ensure accuracy in hand umbrella tipper, still errors may have been included Sometimes, these errors may affect the content or meaning of the given sentence . Total time spent caring for the patient today was 45 minutes. This includes time spent before the visit reviewing the chart, time spent during the visit, and time spent after the visit on documentation [facility] Medical History (Updated 06/09/24 @ 17:18 by JOSE Slater) Stenosis of other cardiac prosthetic devices, implants and grafts, initial encounter Psoriasis Plantar fasciitis Shoulder injury Heart disease High cholesterol High blood pressure Surgical History Status post aorto-coronary artery bypass graft H/O turbinectomy H/O endoscopic sinus surgery H/O nasal septoplasty Family History Mother Ovarian cancer Father High blood pressure High blood cholesterol Cardiovascular disease Unknown High blood pressure High blood cholesterol Cardiovascular disease Social History (Updated 03/24/24 @ 14:22 by Pam Chilel CMA) Housing: House Alcohol intake: current Comment: social Patient Tobacco Use Status: Former Tobacco user e-Cigarette/Vaping Use: Never Used service: No Current occupational status: employed 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 Manny Simpson, Isabella Pérez, David Herring and colleagues, with an educational stacie from [employer]. Physical exam (Primary Care) Vital Signs: Last Vital Signs Pulse 104 H 06/09/24 15:48 Resp 15 06/09/24 15:48 BP 142/80 H 06/09/24 15:48 Pulse Ox 95 06/09/24 15:48 Oxygen Delivery Method Room Air 06/09/24 15:48 BMI result Body Mass Index 35.6 BMI Assessment/Plan discussion: High BMI High, discussed plan: lifestyle and other Tobacco/Smoking Status: Tobacco use Status Tobacco use date assessed 10/14/23 06/09/24 15:49 Patient Tobacco Use Status Former Tobacco user 06/09/24 15:49 e-Cigarette/Vaping Use Never Used 06/09/24 15:49 Thrive Assessment: Date of Thrive Assessment Date Thrive assessed 10/14/23 06/09/24 15:49 Office Procedures Office Procedure Misc Details: G0449 15 MIN OBESITY EDUCATION Office Procedure Billing Code: AMB Procedure Billing Code (G0449 15 MIN OBESITY EDUCATION) Results Reviewed Results Reviewed: [address] [address] Nuclear Medicine Report Signed Patient: John Quinn MR#: [id number] : 1960 Acct:[id number] Age/Sex: 63 / M ADM Date: 02/23/24 Loc: HO.CARD Attending Dr: Efrain Cochran MD Ordering Physician: Efrain Cochran MD Date of Service: 02/23/24 Procedure(s): NM cardiolite stress test Accession Number(s): [id number] cc: Efrain Cochran MD~ Lexiscan Myocardial perfusion study Indication: Coronary artery disease Technique: The patient was brought in for a Lexiscan perfusion study on 02/23/2024 and was injected 0.4 mg of Lexiscan intravenously. Within a minute of this injection 40 mCi of sestamibi was given intravenously. Images were obtained using the SPECT gamma camera interlaced with the gating device. Images were obtained in supine position. Resting perfusion study was performed on 02/24/2024. Patient was administered 40 mCi of sestamibi intravenously at rest. Images were then obtained in supine position. Images were processed with the software and compared side to side in short axis, horizontal long axis and vertical long axis views. Total DLP 123mGy-cm. Findings: Raw acquisition reviewed. The stress perfusion study showed diminished tracer uptake along the inferolateral wall. Lateral wall towards the basal aspect. There is improvement with CT attenuation correction and hence could have components of diaphragmatic attenuation artifact. The gated study shows diminished LV systolic function with calculated LVEF of 42%. LV cavity is normal in size. The gated study shows reduced thickening and contractility in the inferolateral/lateral wall. Resting study shows reduced tracer uptake in the inferolateral wall. Improvement with CT attenuation correction suggestive of some components of diaphragmatic attenuation artifact. Gating at rest reveals ejection fraction at 47%. The findings are consistent with reversible basal lateral defect. Reversible basal to mid inferolateral defect which also has some fixed components. RI/RI cardiolite stress test Impression: 1. Myocardial perfusion imaging study shows ischemia in the basal lateral wall. Mixed ischemia/infarct pattern in the basal to mid inferolateral wall. 2. Gated LVEF is 42% during stress and 47% during rest. 3. Transient ischemic dilatation not present. EKG component of the test reported separately. Dictated By: Efrain Cochran MD Signed By: <Electronically signed by Efrain Cochran MD in OV> 02/24/24 1545 DD/ 0900 TD/TT: Packaging Specialist: Coding Level of Care Code Est Pt Level 5 (96804) Complex EM visit Add On G2211 Diagnoses NAHID on CPAP G47.33 Severe obesity (BMI 35.0-35.9 with comorbidity) E66.01; Z68.35 BMI 35.0-35.9,adult Z68.35 Screening for colon cancer Z12.11 Mild episode of recurrent major depressive disorder F33.0 Major depression episode severity: mild Primary hypertension I10 Hypertension type: primary hypertension Seasonal allergies J30.2 CPT Codes Office Procedure - Office Procedure Billing Code: AMB Procedure Billing Code ([id number]) Assessment & Plan Assessment & Plan (1) NAHID on CPAP: Comment: refer to [facility] Sleep med for mgmt Code(s): G47.33 - Obstructive sleep apnea (adult) (pediatric) Category: Medical Plan: . (2) Severe obesity (BMI 35.0-35.9 with comorbidity): Comment: > 35 htn and hld Code(s): E66.01 - Morbid (severe) obesity due to excess calories; Z68.35 - Body mass index [BMI] 35.0-35.9, adult Category: Medical Plan: . (3) BMI 35.0-35.9,adult: Code(s): Z68.35 - Body mass index [BMI] 35.0-35.9, adult Category: Medical Plan: . (4) Screening for colon cancer: Comment: cologaurd Code(s): Z12.11 - Encounter for screening for malignant neoplasm of colon Category: Medical Plan: . (5) MDD (major depressive disorder), recurrent episode: Comment: Maintained on sertraline 100 mg p.o. daily. Continue Code(s): F33.9 - Major depressive disorder, recurrent, unspecified Category: Medical Qualifiers: Major depression episode severity: mild Qualified Code(s): F33.0 - Major depressive disorder, recurrent, mild Plan: . (6) High blood pressure: Comment: Blood pressure at goal less than 130/80 on metoprolol succinate ER 50 mg p.o. daily. Continue Code(s): I10 - Essential (primary) hypertension Category: Medical Qualifiers: Hypertension type: primary hypertension Qualified Code(s): I10 - Essential (primary) hypertension Plan: . (7) Seasonal allergies: Code(s): J30.2 - Other seasonal allergic rhinitis Plan: . Orders: Referrals Sleep Medicine Referral G47.33 - Obstructive sleep apnea (adult) (pediatric) Cologuard Test Z12.11 - Encounter for screening for malignant neoplasm of colon, Z12.12 - Encounter for screening for malignant neoplasm of rectum Medications: New fluticasone propionate 50 mcg/actuation (Flonase Allergy Relief) administer into each nostril 2 sprays intranasal DAILY 16 grams 8RF bupropion HCl XL (Wellbutrin XL) 150 mg PO QAM 90 tabs 1RF Changed From omega-3 acid ethyl esters 2 caps PO BID To omega-3 acid ethyl esters 1 cap PO BID 90 caps 2RF
[2024-06-09 15:48] VITALS: BP 142/80; PULSE 104; RESP 15; O2SAT 95; BMI 35.6
[2024-06-09 16:32] VITALS: BP 124/76; PULSE 70
== END 2024-06-09 16:47 | disposition home or self-care (01) ==
LOC: HO.HMCFM 15:43
PROVIDERS: PCP Nurse Practitioner Family; Visit Provider Nurse Practitioner Family
DX: G47.33 Obstructive sleep apnea (adult) (pediatric) (principal); E66.01 Morbid (severe) obesity due to excess calories; F33.0 Major depressive disorder, recurrent, mild; Z68.35 Body mass index [BMI] 35.0-35.9, adult; Z12.11 Encounter for screening for malignant neoplasm of colon; I10 Essential (primary) hypertension; J30.2 Other seasonal allergic rhinitis

== ENCOUNTER → 2024-06-09 15:43 | Outpatient (BNVA) | payer OTHER, SELFPAY | PROVIDERS: PCP Nurse Practitioner Family; Visit Provider Nurse Practitioner Family ==

== ENCOUNTER 2024-06-24 07:54 | Outpatient (REF) | payer OTHER, SELFPAY ==
[2024-06-24 11:15] LABS: INTERNATIONAL NORM RATIO 0.9 (0.9-1.1); Prothrombin Time 10.5 SEC (10.9-12.4)
[2024-06-24 11:22] LABS: Hematocrit 42.2 % (42.0-52.0); Hemoglobin 14.3 g/dl (14.0-18.0); Mean Corpuscular HGB Conc 33.9 g/dl (31.0-36.0); Mean Corpuscular Volume 91.3 fL (80.0-98.0); Mean Platelet Volume 9.8 fL (9.4-12.4); Platelet Count 161 X10*3/uL (160-400); Red Blood Count 4.62 X10*6/uL (4.60-5.80); Red Cell Distribution Width 12.9 % (11.0-16.0); White Blood Count 6.6 X10*3/uL (4.8-10.8)
[2024-06-24 11:49] LABS: Cholesterol 203 mg/dL (<200); HDL Cholesterol 28 mg/dL (>40)
[2024-06-24 11:57] LABS: Triglycerides 1628 mg/dL (<150)
[2024-06-24 11:58] LABS: Estimated Average Glucose 111 mg/dL; Hemoglobin A1c % 5.5 % (<6.0); Total Hemoglobin (HGBA1C) 4848.6847 umol/L
[2024-06-24 12:29] LABS: Alanine Aminotransferase 36 U/L (0-40); Alkaline Phosphatase 77 U/L (39-117); Anion Gap 14 (12-20); Aspartate Amino Transferase 59 U/L (5-37); Bilirubin Total 0.3 mg/dL (0.0-1.0); Blood Urea Nitrogen 18 mg/dL (9-16); Calcium 9.3 mg/dL (8.4-10.2); Carbon Dioxide 24 mmol/L (22-29); Chloride 103 mmol/L (96-108); Estimated Glomerular Filt Rate > 60; Glucose Fasting 119 mg/dL (60-99); Glucose Random 118 mg/dL (60-115); Potassium 4.3 mmol/L (3.3-5.1); Total Protein 6.7 g/dL (6.5-8.0)
[2024-06-24 12:30] LABS: Sodium 137 mmol/L (135-145)
[2024-06-24 12:41] LABS: Vitamin D 25-OH Total 53.8 ng/mL (>30)
[2024-06-24 13:15] LABS: Folate 4.6 ng/mL (> or = 4.0); Vitamin B12 358 pg/mL (200-900)
== END 2024-06-24 07:55 | disposition home or self-care (01) ==
LOC: HO.WFDLDS 07:54
PROVIDERS: Referring Provider Internal Medicine; Visit Provider Nurse Practitioner Family
DX: I25.10 Atherosclerotic heart disease of native coronary artery without angina pectoris (principal); Z95.1 Presence of aortocoronary bypass graft; I73.9 Peripheral vascular disease, unspecified; G47.33 Obstructive sleep apnea (adult) (pediatric); E55.9 Vitamin D deficiency, unspecified; R73.01 Impaired fasting glucose; E66.01 Morbid (severe) obesity due to excess calories; Z68.36 Body mass index [BMI] 36.0-36.9, adult; E78.2 Mixed hyperlipidemia; E53.8 Deficiency of other specified B group vitamins
CPT/HCPCS: 36415; 80048; 80053; 80061; 82306; 82607; 82746; 83036; 85027; 85610

== ENCOUNTER → 2024-06-28 23:59 | Outpatient (BNV) | payer OTHER, SELFPAY | PROVIDERS: PCP Nurse Practitioner Family; Visit Provider Internal Medicine Cardiovascular Disease | DX: I25.118 Atherosclerotic heart disease of native coronary artery with other forms of angina pectoris (principal) | CPT/HCPCS: 92920; 93459; 99152 ==

== ENCOUNTER 2024-07-06 14:46 | Outpatient (REF) | payer OTHER, SELFPAY ==
[2024-07-06 16:08] LABS: Alanine Aminotransferase 66 U/L (0-40); Albumin Level 4.2 g/dL (3.5-5.0); Alkaline Phosphatase 89 U/L (39-117); Amylase 37 U/L (28-100); Anion Gap 20 (12-20); Aspartate Amino Transferase 52 U/L (5-37); Bilirubin Total 0.4 mg/dL (0.0-1.0); Blood Urea Nitrogen 11 mg/dL (9-16); Calcium 9.8 mg/dL (8.4-10.2); Carbon Dioxide 21 mmol/L (22-29); Chloride 103 mmol/L (96-108); Estimated Glomerular Filt Rate > 60; Glucose Random 122 mg/dL (60-115); Lipase 17 U/L (8-78); Potassium 4.9 mmol/L (3.3-5.1); Sodium 139 mmol/L (135-145); Total Protein 7.3 g/dL (6.5-8.0)
[2024-07-06 16:32] LABS: Appearance Urine Clear; Color Urine Yellow; Glucose Urine UA Negative (Negative); Leukocyte Esterase Urine Negative (Negative); Nitrite Urine Negative (Negative); PH 5.5 (5.0-9.0); Specific Gravity - Urine 1.015 (1.005-1.025); Urine Blood Negative (Negative); Urine Ketones Negative (Negative); Urine Protein Negative (Neg-Trace)
== END 2024-07-06 14:47 | disposition home or self-care (01) ==
LOC: HO.LAB 14:46
PROVIDERS: PCP Nurse Practitioner Family; Visit Provider Nurse Practitioner Family
DX: E78.3 Hyperchylomicronemia (principal); F10.20 Alcohol dependence, uncomplicated; M54.9 Dorsalgia, unspecified
CPT/HCPCS: 36415; 80053; 81003; 82150; 83690

== ENCOUNTER 2024-07-11 10:59 | Outpatient (REF) | payer OTHER, SELFPAY ==
[2024-07-11 15:48] LABS: Cholesterol 139 mg/dL (<200); HDL Cholesterol 38 mg/dL (>40); LDL Cholesterol Calculated 51 mg/dL (<100); Triglycerides 250 mg/dL (<150)
== END 2024-07-11 11:00 | disposition home or self-care (01) ==
LOC: HO.WFDLDS 10:59
PROVIDERS: Visit Provider Nurse Practitioner Family
DX: E78.3 Hyperchylomicronemia (principal); F10.20 Alcohol dependence, uncomplicated
CPT/HCPCS: 36415; 80061

== ENCOUNTER 2024-07-13 11:11 | Outpatient (AMB) | payer OTHER, SELFPAY ==
[2024-07-13 11:15] VITALS: BP 130/68; PULSE 68; BMI 35.1
--- NOTE | 2024-07-13 11:15 | A.OFFVIS_ITS ---
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: No Accompanied by: Self / Same As Patient Allergies cat dander Allergy (Intermediate, Verified 06/09/24 16:25) Sneezing dog dander Allergy (Intermediate, Verified 06/09/24 16:25) Sneezing Seasonal Allergies Allergy (Intermediate, Verified 06/09/24 16:25) Sneezing Medication List - Last Reconciled 07/13/24 by Efrain Cochran MD aspirin 81 mg PO DAILY atorvastatin 80 mg PO DAILY bupropion HCl XL (Wellbutrin XL) 150 mg PO QAM celecoxib (Celebrex) 200 mg PO Q12H PRN 1 month clopidogrel 75 mg PO DAILY coQ10 (ubiquinol) (Qunol Tony CoQ10) 100 mg PO BID fluticasone propionate 50 mcg/actuation (Flonase Allergy Relief) 2 sprays intranasal DAILY mecobalamin (vitamin B12) mcg PO metoprolol succinate ER 50 mg PO DAILY omega-3 acid ethyl esters 1 cap PO BID sertraline 100 mg PO DAILY HPI Comments Details: John returns for follow-up. Recently seen in consultation regarding coronary artery disease. Per available notes, it appears that he has had long history of coronary disease going back more than 20 years. H/O PCI with bare metal stent to LAD 1998. Subsequently InStent restenosis of LAD in 2002 treated by brachytherapy. Then drug-eluting stent to circumflex in 2006. One further LAD stent in 2008. Then he had CABG x3 in 2016, indication being acute occlusion of his coronary stent. Further details not clear. After, he states he has not really followed up with Cardiology. Prior to that, [facility] patient. Then seen in follow-up here where he was having some random chest pains but nothing clearly exertional. Previously, thought to be sternotomy pain. Sometimes, it can happen the day after he does some strenuous physical activity. Hence variable descriptions and not typical for angina. He underwent a diagnostic catheterization and only angioplasty of circumflex due to procedural complexity. Any case, he states he actually feels okay. Has not had any further chest pains. [facility] Medical History (Updated 07/06/24 @ 13:50 by Becka Borden, [facility]) Stenosis of other cardiac prosthetic devices, implants and grafts, initial encounter Psoriasis Plantar fasciitis Shoulder injury Heart disease High cholesterol High blood pressure Surgical History Status post aorto-coronary artery bypass graft H/O turbinectomy H/O endoscopic sinus surgery H/O nasal septoplasty Family History Mother Ovarian cancer Father High blood pressure High blood cholesterol Cardiovascular disease Unknown High blood pressure High blood cholesterol Cardiovascular disease Social History Housing: House Alcohol intake: current Comment: social Patient Tobacco Use Status: Former Tobacco user e-Cigarette/Vaping Use: Never Used service: No Current occupational status: employed 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 Cognitive needs: No Hearing needs: No Vision needs: Yes Review of Systems Const Denies chills, Denies fatigue, Denies fever(s), Denies frequent falls, Denies weakness, Denies weight gain and Denies weight loss ENT Denies dizziness Card Denies chest pain, Denies leg edema, Denies lightheadedness, Denies palpitations, Denies dyspnea and Denies dyspnea on exertion Resp Denies cough, Denies dyspnea and Denies dyspnea on exertion GI Denies hematochezia Musc Denies abnormal gait, Denies muscle weakness, Denies numbness, Denies radiating pain into limb and Denies tingling Neuro Denies abnormal gait, Denies dizziness, Denies frequent falls, Denies numbness, Denies tingling and Denies weakness Endo Denies fatigue and Denies palpitations Physical Exam Vital Signs: Last Vital Signs Pulse 68 07/13/24 11:15 BP 130/68 07/13/24 11:15 BMI result Body Mass Index 35.1 Const General: comfortable and no acute distress Orientation/consciousness: patient oriented x3 HEENT Other: Unremarkable Head: Yes normal to inspection Neck Neck: Yes normal visual inspection Chest Chest palpation & inspection: normal inspection of the chest Resp Auscultation: clear to auscultation bilaterally Cardio Palpation: normal PMI Heart sounds: S1 normal heart sound present, S2 normal heart sound present, no gallops, no murmurs and no rubs GI Palpation (GI): Soft to palpation Back/Spine/Pelvis Other: unremarkable Skin General skin exam: no rashes or lesions noted Neuro General: patient oriented x3 Extrem General: Yes normal to inspection Psych Mental Status: mental status grossly normal Assessment & Plan Assessment & Plan (1) Atherosclerotic cardiovascular disease: Code(s): I25.10 - Atherosclerotic heart disease of [place] coronary artery without angina pectoris Category: Medical (2) Status post aorto-coronary artery bypass graft: Code(s): Z95.1 - Presence of aortocoronary bypass graft Category: Surgical Plan Per available documentation, history of LAD PCI in 1998, 2008. Brachytherapy to ISR of LAD 2002. Circumflex PCI 2006. CABG 2016. Echocardiogram from 2016 with LVEF of 55-60%. Basal to mid inferolateral hypokinesis. Otherwise unremarkable; in the more recent study from last month, LVEF stated to be 60-65%; moderate diastolic dysfunction; basal inferior hypokinesis. No significant valvular issues. Myocardial perfusion imaging study from last month shows ischemia in the basal lateral wall; mixed ischemia/infarct pattern in the basal to mid inferolateral wall. Gated LVEF 42% during stress and 47% during rest. In the cardiac catheterization from 06/2024, findings include- PLV with 70% proximal stenosis; vein graft to OM/diagonal occluded. Patent MEJIA to LAD with mid LAD occlusion. Severe circumflex OM stenosis status post angioplasty. Prior carotid ultrasound- 1-49% stenosis in the right internal carotid artery. No stenosis in the left internal carotid artery. Overall, he remains on dual antiplatelet therapy and apparently has been on this long-term. No changes today. Continue beta-blockers, statins. LDL well controlled at 51 mg/dL. Triglycerides are high but he states he drinks daily and that may play a role. Advised to cut back. He is also on omega-3 capsules. Follow-up in 4 months. Coding Level of Care Code Est Pt Level 4 (59609) Diagnoses Atherosclerotic cardiovascular disease I25.10 Status post aorto-coronary artery bypass graft Z95.1
--- OUTSIDE RECORDS SUMMARY | 2024-07-19 18:01 | XMS_ITS | Continuity of Care Document ---
Author Organization [facility] ter Address [address] [place] [address]- Care Team Providers Care Magazine Filler Name Role Phone Ro , Gino Martinez Primary Care Physician Encounter [facility] ACCT R [id number] Date(s): 06/28/24 - 06/28/[address] [address]- Discharge Disposition: A-D/C Home Attending Physician: Milan Gordillo MD Admitting Physician: Milan Gordillo MD Referring Physician: Efrain Cochran MD Encounter Type: Disch Daystay Allergies, Adverse Reactions, Alerts No Known Allergies Medications aspirin 81 mg oral tablet 1 tablet = 81 mg, By Mouth, Daily, # 30 tablet, 0 Refills, Maintenance, 12/28/15 1:50:15 AM EDT, Tablet Start Date: 12/28/15 Status: Ordered Quantity: 30.0 Unit: tablet Repeat number: 1 atorvastatin 80 mg oral tablet 1 tablet = 80 mg, By Mouth, Daily, 0 Refills, Maintenance, 06/28/24 8:03:00 AM EST, Partial fill upon patient request if the prescription is for a schedule II opioid drug. Start Date: 06/28/24 Status: Ordered Repeat number: 1 buPROPion 150 mg/24 hours (XL) oral tablet, extended release 1 tablet = 150 mg, By Mouth, Every 24 hours, 0 Refills, Maintenance, 06/28/24 8:11:00 AM EST, Partial fill upon patient request if the prescription is for a schedule II opioid drug. Start Date: 06/28/24 Status: Ordered Repeat number: 1 CeleBREX 200 mg oral capsule 1 capsule = 200 mg, By Mouth, Daily, 0 Refills, Maintenance, 06/28/24 8:09:00 AM EST, Partial fill upon patient request if the prescription is for a schedule II opioid drug. Start Date: 06/28/24 Status: Ordered Repeat number: 1 D3 By Mouth, Daily, 0 Refills, Maintenance, 06/28/24 8:11:00 AM EST, Partial fill upon patient requestif the prescription is for a schedule II opioid drug. Start Date: 06/28/24 Status: Ordered Repeat number: 1 Fluticasone Nasal 0 Refills, Maintenance, 06/28/24 8:11:00 AM EST, Partial fill upon patient request if the prescription is for a schedule II opioid drug. Start Date: 06/28/24 Status: Ordered Repeat number: 1 isosorbide mononitrate 30 mg oral tablet, extended release 30 mg, 1, tablet, By Mouth, Daily in AM, # 90 tablet, Refills 3, Tot. Refills 3, Maintenance, 06/28/24 3:40:00 PM EST, Route to Pharmacy Electronically, [facility]/pharmacy #[id number], Partial fill upon patient request if the prescription is for a schedule II opioid drug., 177.8, cm, 06/28/24 7:42:00 EST, Height, 112.1, kg, 06/28/24 7:42:00 EST, Dry Weight Start Date: 06/28/24 Status: Ordered Quantity: 90.0 Unit: tablet Repeat number: 4 omega-3 polyunsaturated fatty acids 1000 mg oral capsule 1 capsule = 1,000 mg, By Mouth, Daily, # 30 capsule, 0 Refills, Maintenance, 01/15/16 10:15:53 AM EDT Start Date: 01/15/16 Status: Ordered Quantity: 30.0 Unit: capsule Repeat number: 1 Plavix 75 mg oral tablet 75 mg, By Mouth, Daily, # 30 tablet, Refills 0, Tot. Refills 0, Maintenance, 01/07/16 12:48:42 PM EDT, Print Requisition Start Date: 01/07/16 Stop Date: 02/06/16 Status: Ordered Quantity: 30.0 Unit: tablet Repeat number: 1 Zoloft 100 mg oral tablet 1 tablet, By Mouth, Daily, # 30 tablet, 0 Refills, 01/10/09 8:00:00 AM EDT Start Date: 01/10/09 Stop Date: 02/12/09 Status: Ordered Quantity: 30.0 Unit: tablet Repeat number: 1 Problem List Condition Confirmation Course Effective Dates Status H ealth Status Informant ST elevation (STEMI) myocardial infarction involving left anterior descending coronary artery Confirmed Active Other depressive episodes Confirmed Active Other hyperlipidemia Confirmed Active Hypertension Confirmed Active Hypomagnesemia Confirmed Active Other specified abnormal findings of blood chemistry Confirmed Active NAHID (obstructive sleep apnea) Confirmed Active CAD S/P percutaneous coronary angioplasty Confirmed Active Severe obesity (BMI 35.0-39.9) with comorbidity Confirmed Active Vital Signs Most recent to oldest [Reference Range]: 1 2 3 Height 177.8 cm (06/28/24 7:00 AM) Weight 112.1 kg (06/28/24 7:00 AM) Oxygen Saturation [94-100 %] 94 % (06/28/24 2:29 PM) 96 % (06/28/24 1:56 PM) 99 % (06/28/24 1:29 PM) Body Mass Index [18.5-24.99 kg/m2] 35.46 kg/m2 *>HHI* (06/28/24 7:00 AM) Blood Pressure [90-138/55-84 mm Hg] 123/86mm Hg (06/28/24 2:15 PM) 113/85mm Hg (06/28/24 1:45 PM) 138/74mm Hg (06/28/24 1:16 PM) Respiratory Rate [16-30 br/min] 15 br/min *L* (06/28/24 2:29 PM) 13 br/min *L* (06/28/24 1:56 PM) 18 br/min (06/28/24 1:29 PM) Mode of Delivery (Oxygen) Room air (06/28/24 2:15 PM) Room air (06/28/24 1:45 PM) Room air (06/28/24 1:15 PM) Blood pressure sites Arm, left (06/28/24 2:15 PM) Arm, left (06/28/24 1:45 PM) Arm, left (06/28/24 1:15 PM) Dry Weight 112.1 kg (06/28/24 7:00 AM) Weight Obtained Via Standing scale (06/28/24 7:00 AM) Dry Weight Obtained Via Standing scale (06/28/24 7:00 AM) Note * Event Display: Hemodynamic Procedure Report Authored Date: * Tracie Mireles RN: PERFORM, SIGN, VERIFY Event Display: Cardiac Rehab Note Authored Date: [id number] Patient: ELOINA MEREDITH Age: 64 years Sex: Male : 1960 Associated Diagnoses: None Author: Tracie Mireles RN Diagnosis Cardiac Rehab Diagnosis: PCI LCx. Pre-exercise Vitals Vital Signs Comment: Reviewed in CIS. Pre-exercise Physical Examination Neurologic: alert & oriented. Activity Activity tolerance: Change in activity tolerance Pt currently on bedrest. Compliance problems: Compliance problems: diet, exercise. . Patient Education Education: Family present, Written material included, Post procedure guidelines. Education topic Teachback comprehension 75% Topic: Pathophysiology, Lipid management, Medication education, Role of exercise, Home activity guidelines/limits. Recommendation and Plan Ambulate: 4-6 times/day. Outpatient follow up recommended: [facility], in 1-2 weeks, appt to begin cardiac rehab scheduled for 07/05/24 at 1:00PM- pt has attended there previously after his CABG, looking forward to returning. Cardiac Rehab: Will sign off at this time, Plan for DC today, please page [phone] with questions or if pts condition changes. Recommendation comment: RN notified of plan. * Juliet Villeda RN: PERFORM Event Display: Discharge/Transfer Note Hospital Authored Date: [id number] Nursing Discharge Note Entered On: 06/28/2024 16:44 EST Performed On: 06/28/2024 16:02 EST by Juliet Villeda RN Nursing Discharge Note 2 Discharge Time : 06/28/2024 16:02 EST Discharge Level of Care at Discharge : Home/Skilled Nursing/Foster Care Patient Left Unit Via : Wheelchair Patient Accompanied Off Unit with : Responsible adult DC Instructions Provided & Signed by Pt : Yes Patient Understands D/C Instructions : Yes Patient Instructions Discharge Signed : Yes Discharge Comments : R groin site stable Did Pt have Specialty Bed or Wound Vac : No Juliet Villeda RN - 06/28/2024 16:44 EST * Juliet Villeda RN: PERFORM Event Display: Patient Education/Instruction Authored Date: [id number] Inpatient Adult Discharge Instructions. [address] [address] Name: ELOINA MEREDITH : 1960?? Visit: 06/28/2024 06:02?? Current Date: 06/28/2024 14:42 ?? Account: [id number]?? Inpatient Adult Discharge Instructions We would like to thank you for allowing us to assist you with your healthcare needs. The following includes patient education materials and information regarding your injury/illness. Our entire staffstrives to provide an excellent experience for our patients and their families. PLEASE ENSURE YOU FOLLOW-UP PER THE INSTRUCTIONS BELOW! ?? YOUR OPINION IS IMPORTANT TO US! Please complete the survey you may receive by mail or email. Your feedback will be used to make improvements to the healthcare experiences of our patients and their families. Surveys are administered by [employer] ?? If further treatment with your primary care physician or another doctor is recommended, it is important for you to keep the appointment. Call your primary care physician or return to the Emergency Department immediately if your condition worsens, fails to improve, or new symptoms develop. If you need to find a doctor, you can call [facility] for a referral at [phone] or toll free at [phone] or log in to [email or web address].. ?? [facility], in keeping with [facility] guidance, no longer requires face masks for staff, patientsor visitors in most situations. Similiar to time spent indoors at other locations, there is the chance that you were exposed to repiratory viruses during your time with us (such as flu or COVID-19). If you develop symptoms concerning for a viral respiratory infection, please seek testing (and treatment if indicated) from your medical provider or home test kit. ?? You can view and manage your care through the patient portal or by using a health care alessandra of your choosing. [employer] is a website that allows you to securely view your medical information including your hospital discharge summary, office visit summaries, medications and follow-up visits. You can also request appointments, renew medications, and request access to your medical information using a health care alessandra of your choosing, or just ask a question. You can enroll at [email or web address] or register during your next office visit. You have been discharged from [facility], Patient Care Unit: CARE??. If you have any questions regarding these instructions, including results of studies pending, afteryou leave, please call us and we will be happy to assist you 02/03. [facility] Nursing Unit Direct Phone Number, for 02/03 contact and results of studies pending CARE [address] [place] [address] Your Care Team Attending Physician Milan Gordillo MD?? Consulting Providers Milan Gordillo MD?? Discharging Providers Pat Carl MD Tests Performed Below is a partial list of the tests performed during your hospitalization. You may have had other tests and procedures not included in this list. Please discuss all test results with your provider. No tests performed during this visit.?? Primary Care Provider Becka Jackman NP? [facility] Health Care Proxy on File No Discharge Vitals Respiratory Rate:??13 br/min??Low Height: 177.8 cm Systolic Blood Pressure: 113 mm Hg Weight: 112.1 kg Diastolic Blood Pressure:??85 mm Hg??High Body Mass Index:??35.46 kg/m2??Critical Oxygen Saturation: 96 % Body surface area: 2.35 Studies Pending All studies ordered during this hospital stay have been completed unless listed below. Please discuss all pending results with your provider listed above in these instructions. ?? No incomplete studies found?? What to do next Instructions From Your Doctor ?? Orders? hr post PCI NEED TO BE SEEN BY FELLOW OR ATTENDING PRIOR TO DISCHARGE PLEASE DA, ??06/28/24 11:05:00 EST?? Scheduled Follow-Up Appointments Thursday 1:00 PM EST ?? Where: [facility] Status: Pending You Need to Schedule the Following Appointments Follow Up with??[facility] When:??07/05/2024 01:00 PM EST Why: If you need to reschedule this appointment please call [phone] Where: [address] [place] [phone]- [phone] Follow Up with??Gino Millan When:??In 0 days Discharge Medications ELOINA MEREDITH :1960 Visit Date:06/28/2024 Medications: Please continue your medications until treatment is completed or stopped by your provider. Medications not listed below should be discontinued. Discuss any questions related to medications with your provider. What How Much When Instructions Next Dose Changed Atorvastatin (atorvastatin 80 mg oral tablet) 1 tab(s) Oral Daily PRESCRIBED Unchanged Aspirin (aspirin 81 mg oral tablet) 1 tab(s) Oral Daily PRESCRIBED Unchanged BuPROpion (buPROPion 150 mg/ 24 hours (XL) oral tablet, extended release) 1 tab(s) Oral Every 24 hours PRESCRIBED Unchanged Celecoxib (CeleBREX 200 mg oral capsule) 1 capsule Oral Daily PRESCRIBED Unchanged Cholecalciferol (D3) Oral Daily PRESCRIBED Unchanged Clopidogrel (Plavix 75 mg oral tablet) 75 Milligram Oral Daily Duration: 30 Days TOMORROW 06/29 Unchanged Fluticasone Nasal PRESCRIBED Unchanged Raymond-3 Polyunsaturated Fatty Acids (omega-3 polyunsaturated fatty acids 1000 mg oral capsule) 1 capsule Oral Daily PRESCRIBED Unchanged Sertraline (Zoloft 100 mg oral tablet) 1 tab(s) Oral Daily Duration: 30 Days PRESCRIBED ?? What How Much When Comments Stop Taking Acetaminophen (acetaminophen 325 mg oral tablet) 975 Milligram Oral 3 times a day Greater than 101 F or Mild Pain ?? Stop Taking amiODARONE (amiodarone 200 mg oral tablet) See instructions Take 2 tablet By Mouth 2 times a day x 2 days till , then on , Take 1 tablet once a day x 7days, then stop ?? Stop Taking Docusate (Colace sodium 100 mg oral capsule) 1 capsule Oral Twice a day Stop Taking Furosemide (Lasix 40 mg oral tablet) 1 tab(s) Oral Daily Duration: 14 Days stop date ?? Stop Taking Hydromorphone (Dilaudid 2 mg oral tablet) 1 tab(s) Oral Every 4 hours as needed for for pain Duration: 7 Days Stop Taking Metoprolol (metoprolol 25 mg oral tablet) 25 Milligram Oral Twice a day Duration: 30 Days Stop Taking Niacin (niacin 50 mg oral tablet) 1 tab(s) Oral Daily Stop Taking Pantoprazole (pantoprazole 40 mg oral delayed release tablet) 40 Milligram Oral Daily Duration: 30 Days Stop Taking Polyethylene Glycol 3350 (MiraLax Powder) 17 gram Oral Daily as needed for Constipation Stop Taking Potassium Chloride (potassium chloride 10 mEq oral tablet, extended release) 2 tab(s) Oral Daily Duration: 14 Days stop date ?? Stop Taking Pregabalin (Lyrica 50 mg oral capsule) 50 Milligram Oral Every 8 hours Duration: 30 Days Stop Taking Temazepam (Restoril 15 mg oral capsule) 1 capsule Oral Daily at Bedtime as needed for for sleep Prescription Given During Visit No new medications prescribed at time of discharge.?? Laboratory Results Below is a partial list of the most recent Laboratory test results done prior to this discharge. You may have had other tests and procedures not included in this list. Please discuss all test resultswith your provider. Allergies (NKA means No Known Allergies) NKA Problems Active Problems??(9) CAD S/P percutaneous coronary angioplasty?? Hypertension?? Hypomagnesemia?? NAHID (obstructive sleep apnea)?? Other depressive episodes?? Other hyperlipidemia?? Other specified abnormal findings of blood chemistry?? Severe obesity (BMI 35.0-39.9) with comorbidity?? ST elevation (STEMI) myocardial infarction involving left anterior descending coronary artery?? Education Materials Below is the list of Educational Leaflet Providered with your Discharge Instructions. [employer] Patient Education - M-Groin I Discharge Instructions?? [employer] Patient Education - Coronary Stents?? [employer] Patient Education - Cardiac Rehabilitation?? Valuables and Belongings I fully understand and agree that [facility] accepts no responsibility for all my personal property including clothing, toilet articles, radios, jewelry, dentures, hearing aids, rings, money, or any other property that is in my possession or is brought to me after admission. I understand certain valuables may be placed in a hospital safe for a short period of time. I understand that the hospital is not liable for loss or damage due to accident, fire, or other natural occurrence while said property is in the safe. I accept full responsibility for any personal property that I keep with me, and will not hold the hospital responsible in case of loss or disappearance. I acknowledge that i have been encouraged to send valuables and belongings home. ? Other Discharge Information ? Pulmonary Rehab Status?? Pulmonary Rehab Discharge Status?? Respiratory Rate:??13 br/min??Low ? Cardiac Rehab Assessment?? Cardiac Rehab Inpatient Assessment?? Comments-Education: post PCI Comments-Exercise Activity: home activity plan reviewed with patient Comments-Nutrition: Per RD Comments-Lipids: statins, <sat fat diet, exercise Comments-Other plan of care: refer to phase 2 at [place] [facility] Re-[facility]ab Comments: pt has attended previously after CABG Patient attending Phase II: Yes Phase II Site of Care: [address] [address] [phone] Cardiac Orientation Appointment: 07/05/24 13:00:00 Common Emergency Awareness Tips IS IT A STROKE? Act FAST and Check for these signs: FACE Does the face look uneven? ARM Does one arm drift down? SPEECH Does their speech sound strange? TIME Call at any sign of stroke ?? Heart Attack Signs Chest discomfort: Most heart attacks involve discomfort in the center of the chest and lasts more than a few minutes, or goes away and comes back. It can feel like uncomfortable pressure, squeezing, fullness or pain. Discomfort in upper body: Symptoms can include pain or discomfort in one or both arms, back, neck, jaw or stomach. Shortness of breath: With or without discomfort. Other signs: Breaking out in a cold sweat, nausea, or lightheaded. Remember, MINUTES DO MATTER. If you experience any of these heart attack warning signs, call to get immediate medical attention! ?? Smoking can increase your chances of developing chronic health problems and can cause harmful effects to other family members in your house. If you smoke, you are strongly encouraged to quit. Please call [facility] at [phone] or [phone] or log in to [email or web address] for referrals to smoking cessation programs. ?? [address] Suicide & Crisis Lifeline is available 02/03 if you or someone you know needs to find a reason to keep living. By calling 018 you'll be connected to a skilled, trained counselor at a crisis center in your area. INPATIENT DISCHARGE INSTRUCTIONS SIGNATURE PAGE ELOINA MEREDITH Location:[facility] Registration Date and Time:06/28/2024 06:02 [facility] Primary Care Physician: Gino Millan MD, Attending Physician: Milan Gordillo MD, I ELOINA MEREDITH, have received the above patient education materials/instructions and have verbalized understanding. If ambulance or transport services are being used I further acknowledge being given a choice of service. ?? If you need to contact me, please call me at this number: . Patient/Rock Mason Apprentice Name: Patient/Rock Mason Apprentice Signature: Relationship to Patient: Witness Name/Signature: Date: * Tracie Mireles RN: PERFORM, SIGN, VERIFY Event Display: Patient Education Handout Authored Date: [id number] * Juliet Villeda RN: PERFORM Event Display: Patient Education Leaflets Authored Date: Isosorbide ?? [id number] Isosorbide Brand Name(s): Dilatrate??-SR, Imdur??, Ismo??, Ismotic??, Isoditrate??, Isordil??, Monoket??, BiDil?? (as a combination product containing Hydralazine and Isosorbide Dinitrate); also available generically ?? ISDN, ISMN WHY is this medicine prescribed? Isosorbide immediate-release tablets are used for the management of angina (chest pain) in people who have coronary artery disease (narrowing of the blood vessels that supply blood to the heart). Isosorbide extended-release (long- acting) tablets and extended-release capsules are used for the management of chest pain in people who have coronary artery disease. Isosorbide can only be used to prevent angina; it cannot be used to treat an episode of angina once it has begun. Isosorbide is in a class of medications called vasodilators. It works by relaxing the blood vessels so the heart does not need to work as hard and therefore does not need as much oxygen. HOW should this medicine be used? Isosorbide comes as a tablet, an extended-release (long-acting) tablet, and an extended-release capsule to take by mouth. The tablet usually is taken two or three times daily. The extended-release tablet usually is taken once daily in the morning. The extended-release capsule usually is taken once daily. Swallow the extended-release tablets or capsules whole; do not crush, chew, or divide them. Follow the directions on your prescription label carefully, and ask your doctor or pharmacist to explain any part you do not understand. Take isosorbide exactly as directed. Do not take more or less of it ortake it more often than prescribed by your doctor. Isosorbide controls chest pain but does not cure coronary artery disease. Continue to take isosorbide even if you feel well. Do not stop taking isosorbide without talking to your doctor. Isosorbide may not work as well after you have taken it for some time or if you have taken many doses. Your doctor will schedule your doses so that there is a period of time every day when you are not exposed to isosorbide. If your chest pain attacks happen more often, last longer, or become more severe at any time during your treatment, call your doctor. Are there OTHER USES for this medicine? Isosorbide tablets are also used with other medications to treat heart failure. Talk to your doctorabout the possible risks of using this medication for your condition. This medication is sometimes prescribed for other uses; ask your doctor or pharmacist for more information. What SPECIAL PRECAUTIONS should I follow? Before taking isosorbide, ??? tell your doctor and pharmacist if you are allergic to isosorbide; nitroglycerin tablets, patches, or ointment; any other medications, or any of the ingredients in isosorbide tablets, extended-release tablets, or extended- release capsules. Ask your pharmacist for a list of the ingredients. ??? some medications should not be taken with isosorbide. Other medications may cause dosing changes or extra monitoring when taken with isosorbide. Make sure you have discussed any medications you are currently taking or plan to take before starting isosorbide with your doctor and pharmacist. Before starting, stopping, or changing any medications while taking isosorbide, please get the advice of yourdoctor or pharmacist. ??? tell your doctor if you may be dehydrated, if you have recently had a heart attack, or if you have or have ever had heart failure, low blood pressure, or hypertrophic cardiomyopathy (thickening of the heart muscles). ??? tell your doctor if you are , plan to become, or are breast-feeding. If you become while taking isosorbide, call your doctor. ??? if you are having surgery, including dental surgery, tell the doctor or dentist that you are taking isosorbide. ??? ask your doctor about the safe use of alcoholic beverages while you are taking isosorbide. Alcohol can make the side effects from isosorbide worse. ??? you should know that isosorbide may cause dizziness, lightheadedness, and fainting when you get up too quickly from a lying position, or at any time, especially if you have been drinking alcoholic beverages. To avoid this problem, get up slowly, resting your feet on the floor for a few minutes before standing up. Take extra precautions to avoid falling during your treatment with isosorbide. ??? you should know that you may ex perience headaches every day during your treatment with isosorbide. These headaches may be a sign that the medication is working as it should. Do not try to change the times or the way that you take isosorbide in order to avoid headaches because then the medication may not work as well. Your doctormay tell you to take a pain reliever to treat your headaches. What SPECIAL DIETARY instructions should I follow? Unless your doctor tells you otherwise, continue your normal diet. What should I do IF I FORGET to take a dose? Take the missed dose as soon as you remember it. However, if it is almost time for the next dose, skip the missed dose and continue your regular dosing schedule. Do not take a double dose to make up for a missed one. What SIDE EFFECTS can this medicine cause? Isosorbide may cause side effects. Tell your doctor if any of these symptoms or those listed in theSPECIAL PRECAUTIONS section are severe or do not go away: ??? nausea Some side effects can be serious. If you experience any of these symptoms, call your doctor immediately or get emergency medical treatment: ??? worsening chest pain ??? rash ??? hives ??? itching ??? difficulty breathing or swallowing Isosorbide may cause other side effects. Call your doctor if you have any unusual problems while you are taking this medication. If you experience a serious side effect, you or your doctor may send a report to the Food and Drug Administration's (FDA) MedWatch Adverse Event Reporting program online (https://www.fda.gov/Safety/MedWatch) or by phone ( ). What should I know about STORAGE and DISPOSAL of this medication? Keep this medication in the container it came in, tightly closed, and out of reach of children. Store it at room temperature and away from excess heat and moisture (not in the bathroom). It is important to keep all medication out of sight and reach of children as many containers (such as weekly pill minders and those for eye drops, creams, patches, and inhalers) are not child-resistant and young children can open them easily. To protect young children from poisoning, always lock safety caps and immediately place the medication in a safe location ??? one that is up and away and out of their sight and reach. https://www.[facility].org Unneeded medications should be disposed of in special ways to ensure that pets, children, and otherpeople cannot consume them. However, you should not flush this medication down the toilet. Instead,the best way to dispose of your medication is through a medicine take-back program. Talk to your pharmacist or contact your local garbage/recycling department to learn about take-back programs in your community. See the FDA's Safe Disposal of Medicines website (https://goo.gl/c4Rm4p) for more information if you do not have access to a take-back program. What should I do in case of OVERDOSE? In case of overdose, call the poison control helpline at . Information is also available online at https://www.poisonhelp.org/help. If the victim has collapsed, had a seizure, has trouble breathing, or can't be awakened, immediately call emergency services at 461. Symptoms of overdose may include: ??? headache ??? confusion ??? fever ??? dizziness ??? slow or pounding heartbeat ??? nausea ??? vomiting ??? bloody diarrhea ??? fainting ??? shortness of breath ??? sweating ??? flushing ??? cold, clammy skin ??? loss of ability to move the body ??? coma (loss of consciousness for a period of time) ??? seizures What OTHER INFORMATION should I know? Keep all appointments with your doctor. Do not let anyone else take your medication. Ask your pharmacist any questions you have about refilling your prescription. It is important for you to keep a written list of all of the prescription and nonprescription (mifp-enp-wzwdpxc) medicines you are taking, as well as any products such as vitamins, minerals, or otherdietary supplements. You should bring this list with you each time you visit a doctor or if you areadmitted to a hospital. It is also important information to carry with you in case of emergencies. This report on medications is for your information only, and is not considered individual patient advice. Because of the changing nature of drug information, please consult your physician or pharmacist about specific clinical use. The [employer] represents that the information provided hereunder was formulated with a reasonable standard of care, and in conformity with professional standards in the field. The [employer] makes no representations or warranties, express or implied, including, but not limited to, any implied warranty of merchantability and/or fitness for a particular purpose, with respect to such information and specifically disclaims all such warranties. Users are advised that decisions regarding drug therapy are complex medical decisions requiring the independent, informed decision of an appropriate health pet care associate, and the information is provided for informational purposes only. The entire monograph for a drug should be reviewed for a thorough understanding of the drug's actions, uses and side effects. The [employer] does not endorse or recommend the use of any drug.The information is not a substitute for medical care. AHFS?? Patient Medication Information???. ?? Copyright, 2023. The [employer]??, [address], [address], [place], [place]. All Rights Reserved. Duplication for commercial use must be authorized by [facility]. Selected Revisions: April 24, 2019. AHFS?? Patient Medication Information???. ?? Copyright, 2023 ?? * Juliet Villeda RN: PERFORM Event Display: Patient Education Leaflets Authored Date: [id number] M-Groin I Discharge Instructions ?? 179 Groin Discharge Instructions No heavy lifting over 10 pounds (for example: gallon of milk) 1 week following the procedure; gradually increase normal activity over the next 5 days. Avoid straining/pushing when moving bowels You may feel like resting more after your procedure. Slowly start to do more each day. Rest when you feel it is needed. Make sure to look at your procedure site every day until it is completely healed. You may see bruising at the puncture site and that is common after the procedure. You may shower the day after your procedure. Remove the band aid before showering. Wash the area gently with soap and water. Leave open to air. Do not take tub baths, hot tubs, soaking of the puncture site or swimming for 1 week. Do not put any creams, powders or lotions on your puncture site You may resume sexual activity the day after your procedure; avoid bending the hip on ?? the side of the groin puncture excessively and any strenuous positions for 1 week. Call your doctor if your procedure site develops any of the following: ??? New onset severe pain ??? New onset lump or swelling ??? Bleeding that does not stop with lightpressure ? * Juliet Villeda RN: PERFORM Event Display: Patient Education Leaflets Authored Date: [id number] Coronary Stents ?? 43691 Coronary Stents A stent is a small metal coil or mesh tube that is placed in a narrowed artery to hold it open. This??helps improve blood flow to your heart. The stent also helps keep the artery from re-narrowing (restenosis). Most stents are coated and slowly release medicine over a time. This reduces the amount of scar tissue that forms in the artery, helping prevent restenosis. A forestry extension specialist called an senior computer specialist does coronary angioplasty and stenting. ??During the procedure ??? A member of your healthcare team will numb the skin at the insertion site with a local anesthetic. This is usually the groin or the wrist with a local anesthetic. They willmake a needle puncture to insert the catheter. ??? Your doctor will insert a guide wire through thethin, flexible tube (catheter) and move it to the narrow spot in your heart's artery. Your doctor tracks its movement using pulsed X-ray called fluoroscopy. An angiogram will be done which is an X-ray movie of heart artery blood flow using contrast. This identifies the location of the stenosis. ???Your doctor will then insert a balloon-tipped catheter through the guide catheter and thread it over the guide wire. They will position it at the narrow part of the artery. ??? Your doctor will deliver a stent mounted on a balloon-tipped catheter to the blockage in??your artery. ??? They will inflate the balloon to expand the stent. ??? The expanded stent further compresses the plaque against theartery wall, increasing and restoring the blood flow to the heart muscle. ?? After the procedure ??? Your doctor will give you medicine to prevent blood clots from forming on the new stent. You will continue to take this medicine until the stent and artery have healed. Your healthcare team will tell you how long you should take this. Your doctor will give you a prescriptionbefore you go home. This prescription is often for a medicine called clopidogrel or others like it.This medicine is taken with aspirin to prevent blood clots from forming inside the newly opened area of the artery. ??? If the insertion site was in your groin, you may need to lie down with your legstill for several hours. The amount of time may depend on whether a closure device such as a stitchor collagen plug was used to close the opening made in your artery. The time you must be still may be shorter if one of these devices was used. The amount of time will also depend on if there is any bleeding at the artery site. ??? If the insertion site was in your wrist, a pressure band may be used to hold pressure on the wrist. It's slowly removed once there is no sign of bleeding. ??? A nurse will check your blood pressure and the insertion site. ??? You may be asked to drink fluid to help flush the contrast liquid out of your system. ??? You will likely be given other prescriptions to prevent other areas of the arteries from narrowing. This includes medicine to control cholesterol, suchas statins. You may also get a beta lilly to prevent a heart attack. Nitroglycerin is prescribed to treat episodes of chest pain (angina) if this occurs. Don't mix nitroglycerin with medicines thatare used to treat erectile dysfunction or pulmonary hypertension. This can cause a dangerous drop in your blood pressure. ??? You need to have a follow up appointments to check how well you respond to the stent and new medicines. This can be as early as a week or maybe within 2 to 4 weeks after your coronary stent placement. ??? You may be able to go home the same day. Or you may spend the night in the hospital after your procedure. Your stay may be longer depending on your condition and the results of your procedure. You will get instructions for what to do when you go home to help you recover. ??? Have someone drive you home from the hospital. ??? It???s normal to find a small bruise or lump at the insertion site. This should disappear within a few weeks. Let your healthcare provider know if the bruise is large or very uncomfortable. ??? You will be given discharge instructions that tell you how to keep the puncture site clean and dry and what activity restrictions you may have after your procedure. Make sure you ask your healthcare team about any questions or concerns you have after your procedure. ?? When to call your healthcare provider Call your healthcare provider right away if you have any of the following: ??? Increasing pain, swelling, redness, bleeding, extensive bruising, or drainage at the insertion site ??? Fever of??100.4??F (38??C) or higher, or as directed by your healthcare provider ??? Symptoms of infection such as redness, swelling, drainage, or warmth at the insertion site ??? Trouble urinating ??? Blood in your urine ??? Black or tarry stools ??? Any unusual bleeding ??? Irregular, very slow, or fast heartbeat??? Dizziness ?? Call 911 Call 911 if any of the following occur: ??? Pain or discomfort in the chest, back, neck, throat, jaw, arms, or shoulders ??? Trouble breathing ??? Sudden numbness or weakness in arms, legs, or face, or difficulty speaking ??? The insertionsite swells up very fast ??? Bleeding from the insertion site that does not slow down with firm pressure ??? Severe pain, coldness, numbness, or a bluish color in the leg or arm that held the catheter ?? Last Reviewed Date: 2023 ?? [id number] [employer]. All rights reserved. This information is not intended as a substitute for professional medical care. Always follow your healthcare professional's instructions. ?? EKG study * Event Display: ECG 12-Lead Authored Date: Please click on pdf link to open report * Event Display: ECG 12-Lead Authored Date: Ventricular Rate: 62 BPM Atrial Rate: 62 BPM P-R Interval: 170 ms QRS Duration: 102 ms Q-T Interval: 438 ms QTC Calculation(Bazett): 444 ms P Ponce: -11 degrees R Ponce: 7 degrees T Ponce: 96 degrees Normal sinus rhythm Nonspecific ST and T wave abnormality Abnormal ECG When compared with ECG of 28-JUN-2024 11:10, No significant change Confirmed by Destin Lyn ([id number]) on 06/28/2024 3:55:29 PM [place]: Destin Lyn * Event Display: ECG 12-Lead Authored Date: Please click on pdf link to open report * Event Display: ECG 12-Lead Authored Date: Ventricular Rate: 62 BPM Atrial Rate: 62 BPM P-R Interval: 162 ms QRS Duration: 102 ms Q-T Interval: 428 ms QTC Calculation(Bazett): 434 ms P Ponce: -13 degrees R Ponce: 4 degrees T Ponce: 84 degrees Normal sinus rhythm Cannot rule out Anterior infarct , age undetermined Nonspecific ST abnormality , consider lateral ischemia Abnormal ECG When compared with ECG of 02-JAN-2016 07:29, ST now depressed in Lateral leads Confirmed by Destin Lyn ([id number]) on 06/28/2024 9:01:29 AM [place]: Destin Lyn Patient Care team information Care Team Personnel Name: Juliet Enrique RN Position: [facility] SN RN Member Role: Primary Care Nurse Name: Tracie Ceja RN Position: [facility] RN Member Role: Primary Care Nurse Name: Gino Millan MD Position: [facility] Physician - Primary Care Member Role: PCP Address: [address] [place] [address] Telecom: Care Team Related Persons Name: VIRISHANDA Insurance Providers Guarantor name: ELOINA MEREDITH Health Plan Information #: 1 Payer: NA Member Number: [id number] Policy Number: NA Group Number: [id number] Health Plan Information #: 2 Payer: NA Member Number: [id number] Policy Number: NA Group Number: [id number]
== END 2024-07-13 11:31 | disposition home or self-care (01) ==
PROVIDERS: PCP Nurse Practitioner Family; Visit Provider Internal Medicine
DX: I25.10 Atherosclerotic heart disease of native coronary artery without angina pectoris (principal); Z95.1 Presence of aortocoronary bypass graft
CPT/HCPCS: 99214

== ENCOUNTER → 2024-07-13 11:11 | Outpatient (BNVA) | payer OTHER, SELFPAY | PROVIDERS: PCP Nurse Practitioner Family; Visit Provider Internal Medicine ==

== ENCOUNTER 2024-08-22 13:07 | Outpatient (AMB) | payer OTHER, SELFPAY ==
--- NOTE | 2024-08-22 13:09 | MHC.PC.OV ---
Vital Signs 08/22/24 13:13 08/22/24 13:41 Height 5 ft 10 in Weight 247 lb BMI 35.4 BP 148/76 H 116/60 Blood Pressure Location Rt brachial Rt brachial Position Sitting Sitting Respiration 14 Pulse 66 Pulse Source Pulse Oximeter Pulse Oximetry (%) 97 Oxygen Delivery Method Room Air Intake Visit Reasons: back pain /x-ray and referral request Intake Note: Patient complaining of lower back pain since Jun, Women Specialist Required: No Allergies cat dander Allergy (Intermediate, Verified 08/22/24 13:37) Sneezing dog dander Allergy (Intermediate, Verified 08/22/24 13:37) Sneezing Seasonal Allergies Allergy (Intermediate, Verified 08/22/24 13:37) Sneezing Medication List - Last Reconciled 08/22/24 by Becka Borden, PRE BILLING CLINICIAN- aspirin 81 mg PO DAILY atorvastatin 80 mg PO DAILY bupropion HCl XL (Wellbutrin XL) 150 mg PO QAM celecoxib (Celebrex) 200 mg PO Q12H PRN 1 month clopidogrel 75 mg PO DAILY coQ10 (ubiquinol) (Qunol Tony CoQ10) 100 mg PO BID fluticasone propionate 50 mcg/actuation (Flonase Allergy Relief) 2 sprays intranasal DAILY mecobalamin (vitamin B12) mcg PO metoprolol succinate ER 50 mg PO DAILY omega-3 acid ethyl esters 1 cap PO BID sertraline 100 mg PO DAILY Tobacco use date assessed: 10/14/23 Dental Screening Dental Screen Date: 10/14/23 HPI HPI Comments History of Present Illness Details 64-year-old male with CAD S/P triple bypass 2016, psoriasis, plantar fasciatis , MDD, hyperlipidemia, Vit D def, Vit b12 def, IFG, NAHID on CPAP, seasonal allergies, obesity s/p LAD PCI in 2008. Brachytherapy to ISR of LAD 2002. Circumflex PCI 2006. CABG 2015. Health maintenance Colonoscopy referral placed but could not make appt, will do cologaurd ordered today PSA UTD within normal limits Vaccines flu shot UTD. Will get COVID at pharmacy [facility] Here today with complaints of right low back pain that started at the end of June. He reports that he had his cardiac catheterization he has had pain in his back since this time. The pain is not present when he is still or not moving. The pain is present when he is moving in any and all directions. This is affecting his ability to participate in cardiac rehab. He was able to do a recumbent bike but he is not able to walk on the treadmill as this worsens the pain. He has been using topical analgesics, using heat, along with Celebrex which seems to help improve the pain but it has not gone away. He denies any overt injury. He denies any fever, chills, weakness, loss of function or any red flags associated with back pain. He has never had back surgery. When asked about complaints he does report normal urination but he has had retrograde ejaculation which is new since this procedure. It has not resolved. Exam Awake alert oriented Spine and paraspinal nontender, neg SLR bilat, neg CTA bilat, + PP, normal tone, reflexes and strength. Abnormal tandem walking, normal heel and toe walking. Chronic BLE edema no worse than baseline unable to reproduce pain Plan Refer to pain management for evaluation and treatment of his back pain. Short-term muscle relaxants to use sparingly. Continue with supportive care. Okay to use NSAIDs or the like sparingly. Check renal labs in PSA today. Consider referral to Urology or additional imaging to evaluate the retrograde ejaculation. This note is constructed using voice recognition software. While every effort has been made to ensure accuracy in gang saw operator, still errors may have been included Sometimes, these errors may affect the content or meaning of the given sentence . Total time spent caring for the patient today was 42 minutes. This includes time spent before the visit reviewing the chart, time spent during the visit, and time spent after the visit on documentation [facility] Medical History (Updated 08/22/24 @ 17:04 by Becka Borden, [facility]) Stenosis of other cardiac prosthetic devices, implants and grafts, initial encounter Psoriasis Plantar fasciitis Shoulder injury Heart disease High cholesterol High blood pressure Surgical History Status post aorto-coronary artery bypass graft H/O turbinectomy H/O endoscopic sinus surgery H/O nasal septoplasty Family History Mother Ovarian cancer Father High blood pressure High blood cholesterol Cardiovascular disease Unknown High blood pressure High blood cholesterol Cardiovascular disease Social History Housing: House Alcohol intake: current Comment: social Patient Tobacco Use Status: Former Tobacco user e-Cigarette/Vaping Use: Never Used service: No Current occupational status: employed 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 31139 - PHQ-9 Billing: Patient declined-do not bill Source: Developed by Drs. Manny Simpson, Isabella Pérez, David Herring and colleagues, with an educational stacie from [employer]. Thrive Questionnaire Date Thrive assessed: 08/22/24 I am a: Patient What is your living situation today?: I choose not to answer this question Within the past 12 months, did the food you bought not last and you didn't have the money to get more?: I choose not to answer this question Within the past 12 months, did you worry whether your food would run out before you got money to buy more?: I choose not to answer this question Do you have trouble paying for medicines?: I choose not to answer this question Do you have trouble getting transportation to medical appointments?: I choose not to answer this question Do you have trouble paying your heating and electricity bill?: I choose not to answer this question Do you have trouble taking care of your child, family member or friend?: I choose not to answer this question Do you have trouble with day-to-day activities such as bathing, preparing meals, shopping, managing finances, etc.?: I choose not to answer this question Are you currently unemployed and looking for a job?: I choose not to answer this question Are you interested in more education?: I choose not to answer this question Please select the resources that you would like help with: None Currently or been in a relationship where the following occur: I choose not to answer THRIVE Score: 0 AUDIT C Alcohol Use Questionnaire (AUDIT-C) 1. How often do you have a drink containing alcohol?: 4 or more times a week 2. How many drinks containing alcohol do you have on a typical day when you are drinking?: 1 or 2 3. How often do you have six or more drinks on one occasion?: Less than monthly Total Score: 5 VEE-7 AMB Questionnaire VEE-7 Date VEE - 7 assessed: 08/22/24 Feeling nervous, anxious, or on edge: 0 = Not at all Not being able to stop or control worryin = Not at all Worrying too much about different things: 0 = Not at all Trouble relaxin = Not at all Being so restless that it is hard to sit still: 0 = Not at all Becoming easily annoyed or irritable: 0 = Not at all Feeling afraid as if something awful might happen: 0 = Not at all Total VEE-7 score (0-4 normal; 5-9 mild; 10-14 moderate; 15-21 severe): 0 Source: Developed by Drs. Manny Simpson, Isabella Pérez, David Herring and colleagues, with an educational stacie from [employer]. VEE-7 Assessment Billing VEE-7 Assessment Tool: VEE-7 Assessment 25585 Physical exam (Primary Care) Vital Signs: Last Vital Signs Pulse 66 08/22/24 13:13 Resp 14 08/22/24 13:13 BP 116/60 08/22/24 13:41 Pulse Ox 97 08/22/24 13:13 Oxygen Delivery Method Room Air 08/22/24 13:13 BMI result Body Mass Index 35.4 Tobacco/Smoking Status: Tobacco use Status Tobacco use date assessed 10/14/23 08/22/24 13:09 Patient Tobacco Use Status Former Tobacco user 08/22/24 13:09 e-Cigarette/Vaping Use Never Used 08/22/24 13:09 Thrive Assessment: Date of Thrive Assessment Date Thrive assessed 08/22/24 08/22/24 13:15 Currently or been in a relationship where the following occur: I choose not to answer Coding Level of Care Code Est Pt Level 5 (71742) Complex EM visit Add On G2211 Diagnoses Acute right-sided low back pain without sciatica M54.50 Chronicity: acute Sciatica presence: without sciatica Retrograde ejaculation N53.14 Additional Codes VEE-7 Assessment Billing - VEE-7 Assessment Tool: VEE-7 Assessment 40820 ([id number]) Assessment & Plan Assessment & Plan (1) Right low back pain: Code(s): M54.50 - Low back pain, unspecified Category: Medical Qualifiers: Chronicity: acute Sciatica presence: without sciatica Qualified Code(s): M54.50 - Low back pain, unspecified (2) Retrograde ejaculation: Code(s): N53.14 - Retrograde ejaculation Category: Medical Plan . Orders: Orders Comprehensive Met. Panel Today M54.50 - Low back pain, unspecified PSA,Total (Free>4and<10) Today M54.50 - Low back pain, unspecified UA CC w/rflx Micro + Cult Today M54.50 - Low back pain, unspecified Referrals Pain Management Referral M54.50 - Low back pain, unspecified Medications: New tizanidine (Zanaflex) 4 mg PO BID PRN 14 tabs 0RF muscle spasticity
[2024-08-22 13:13] VITALS: BP 148/76; PULSE 66; RESP 14; O2SAT 97; BMI 35.4
[2024-08-22 13:41] VITALS: BP 116/60
== END 2024-08-22 14:20 | disposition home or self-care (01) ==
PROVIDERS: PCP Nurse Practitioner Family; Visit Provider Nurse Practitioner Family
DX: M54.50 Low back pain, unspecified (principal); N53.14 Retrograde ejaculation

== ENCOUNTER → 2024-08-22 13:07 | Outpatient (BNVA) | payer OTHER, SELFPAY | PROVIDERS: PCP Nurse Practitioner Family; Visit Provider Nurse Practitioner Family ==

== ENCOUNTER 2024-08-22 14:00 | Outpatient (REF) | payer OTHER, SELFPAY ==
[2024-08-22 18:30] LABS: PSA,Total (Free>4and<10) 0.42 ng/mL (0.00-4.00)
[2024-08-22 19:38] LABS: Alanine Aminotransferase 34 U/L (0-40); Albumin Level 4.1 g/dL (3.5-5.0); Anion Gap 14 (12-20); Aspartate Amino Transferase 26 U/L (5-37); Bilirubin Total 0.4 mg/dL (0.0-1.0); Blood Urea Nitrogen 12 mg/dL (9-16); Calcium 9.1 mg/dL (8.4-10.2); Carbon Dioxide 25 mmol/L (22-29); Chloride 107 mmol/L (96-108); Estimated Glomerular Filt Rate > 60; Glucose Random 105 mg/dL (60-115); Potassium 4.5 mmol/L (3.3-5.1); Sodium 141 mmol/L (135-145); Total Protein 7.2 g/dL (6.5-8.0)
[2024-08-22 20:19] LABS: Alkaline Phosphatase 71 U/L (39-117)
== END 2024-08-22 14:01 | disposition home or self-care (01) ==
LOC: HO.WFDLDS 14:00
PROVIDERS: Visit Provider Nurse Practitioner Family
DX: M54.50 Low back pain, unspecified (principal); Z12.5 Encounter for screening for malignant neoplasm of prostate
CPT/HCPCS: 36415; 80053; 84153; 96127

== ENCOUNTER 2024-08-23 17:28 | Outpatient (REF) | payer OTHER, SELFPAY ==
[2024-08-23 17:40] LABS: Appearance Urine Clear; Color Urine Yellow; Glucose Urine UA Negative (Negative); Leukocyte Esterase Urine Negative (Negative); Nitrite Urine Negative (Negative); Urine Blood Negative (Negative); Urine Ketones Negative (Negative); Urine Protein Negative (Neg-Trace)
== END 2024-08-23 17:29 | disposition home or self-care (01) ==
LOC: HO.LNP 17:28
PROVIDERS: Visit Provider Nurse Practitioner Family
DX: M54.50 Low back pain, unspecified (principal)
CPT/HCPCS: 81003

== ENCOUNTER 2024-08-31 13:01 | Outpatient (AMB) | payer OTHER, SELFPAY ==
--- NOTE | 2024-08-31 13:03 | MHC.PC.OV ---
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: No Allergies cat dander Allergy (Intermediate, Verified 08/31/24 13:03) Sneezing dog dander Allergy (Intermediate, Verified 08/31/24 13:03) Sneezing Seasonal Allergies Allergy (Intermediate, Verified 08/31/24 13:03) Sneezing Medication List - Last Reconciled 08/31/24 by Becka Borden, [employer]- aspirin 81 mg PO DAILY atorvastatin 80 mg PO DAILY bupropion HCl XL (Wellbutrin XL) 150 mg PO QAM celecoxib (Celebrex) 200 mg PO Q12H PRN 1 month clopidogrel 75 mg PO DAILY coQ10 (ubiquinol) (Qunol Tony CoQ10) 100 mg PO BID fluticasone propionate 50 mcg/actuation (Flonase Allergy Relief) 2 sprays intranasal DAILY isosorbide mononitrate ER 30 mg PO DAILY mecobalamin (vitamin B12) mcg PO metoprolol succinate ER 50 mg PO DAILY omega-3 acid ethyl esters 1 cap PO BID sertraline 100 mg PO DAILY tizanidine (Zanaflex) 4 mg PO BID PRN Tobacco use date assessed: 10/14/23 Dental Screening Dental Screen Date: 10/14/23 HPI HPI Comments History of Present Illness Details 64-year-old male with CAD S/P triple bypass 2016, psoriasis, plantar fasciatis , MDD, hyperlipidemia, Vit D def, Vit b12 def, IFG, etoh dependence, NAHID on CPAP, seasonal allergies, obesity s/p LAD PCI in 2008. Brachytherapy to ISR of LAD 2002. Circumflex PCI 2006. CABG 2015. Health maintenance Colonoscopy referral placed but could not make appt, Cologaurd complete 07/13/24 WNL, repeat 3 years PSA UTD within normal limits Vaccines flu, COVID UTD. [facility] next appt November 2024 Sleep Med appt in October 2024 GI Pain mgmt 09/01/24 Here today for close interim fu back pain and retrograde ejaculation along w/ chronic dz mgmt. The back pain persists despite medication use, with some relief noted with topical treatments, but he is keen to identify the underlying source rather than rely solely on medication. He has an upcoming appointment with pain management tomorrow for further evaluation. No worsening of his sx. Feels he will be able to do cardiac rehab starting on Thursday. Retrograde ejaculation; however, he has not recently attempted sexual activity, rendering the status inconclusive. Further urological evaluation may be necessary if symptoms persist. Previous labs do not indicate renal complications. UA WNL as well The patient has a history of coronary artery disease, status post triple bypass. He manages hyperlipidemia with cholesterol medication and maintains a regimen of baby aspirin. Despite not engaging in physical activity due to back pain, his weight is decreasing, attributed to Wellbutrin's appetite suppressant effect and reduced alcohol consumption. Not drinking during the week now. major depressive disorder for which he is on sertraline. There are no current exacerbations of depression or anger. The patient is also compliant with CPAP therapy for obstructive sleep apnea. First appt w sleep med scheduled. Exam: alert oriented NAD No carotid bruit bilat MMM RRR LS CTAB Trace edema BLE R>L, decreased PP bilat, hairless half way down lower ext, skin intact. Spine and paraspinal nontender, neg SLR bilat, neg CTA bilat, + PP, normal tone, reflexes and strength. Abnormal tandem walking, normal heel and toe walking. Results - Labs: Comprehensive metabolic panel shows normal kidney function. Prior cholesterol test in July showed improvement. Cologuard screening done in July returned negative, normal results. Plan - Continue management of back pain with topical medications and evaluate outcome of pain management consult. - Monitor retrograde ejaculation and consider urology referral if symptoms persist. - Continue Wellbutrin for weight loss and mood stabilization, maintain current dose as effective. - Follow up on cardiovascular health with cardiology visit scheduled in November. - Continue use of CPAP for management of obstructive sleep apnea. - Review cholesterol levels with continuation of current medications. - Monitor alcohol use and encourage further reduction given its impact on triglyceride levels. Patient was informed and verbally consented to the use of an ambient scribe for clinic note documentation during this visit. Discussion Notes During the visit, we discussed the management of the patient's persistent back pain, including awaiting the pain management consult to evaluate further treatment options. I reassured the patient about his normal kidney function based on lab results, thus excluding renal issues as a cause of his symptoms. For retrograde ejaculation, I explained the potential for a urology referral if symptoms do not resolve. We evaluated the success of Wellbutrin in weight management, noting his weight loss and appetite suppression, agreeing that current dosing remains appropriate. I highlighted that his chronic conditions, such as coronary artery disease, are under control with his current medication regimen. Additionally, we addressed lifestyle changes, notably reduced alcohol intake, benefiting his overall health and lowering triglycerides. Follow-up was scheduled to align with cardiology and laboratory evaluations, ensuring holistic care continuity. Patient Instructions - Attend pain management appointment as scheduled. - Report any changes in symptoms related to ejaculation through the patient portal. - Maintain current Wellbutrin dosing. - Monitor and continue reducing alcohol intake. - Adhere to CPAP therapy for sleep apnea. - Schedule follow-up labs a week before next visit in February (CPE) and ensure fasting prior. - Stay hydrated up until the time of blood draw while fasting overnight. Total time spent caring for the patient today was 60 minutes. This includes time spent before the visit reviewing the chart, time spent during the visit, and time spent after the visit on documentation, reviewing laboratory results, diagnostic imaging, medications, performing a medically necessary evaluation, counseling on diagnoses, care coordination, ordering appropriate tests, ordering appropriate medications, review of tests performed by other providers, reporting test results with the patient, communication with other healthcare providers. [facility] Medical History (Updated 08/31/24 @ 15:19 by Becka Borden [facility]) Stenosis of other cardiac prosthetic devices, implants and grafts, initial encounter Psoriasis Plantar fasciitis Shoulder injury Heart disease High cholesterol High blood pressure Surgical History Status post aorto-coronary artery bypass graft H/O turbinectomy H/O endoscopic sinus surgery H/O nasal septoplasty Family History Mother Ovarian cancer Father High blood pressure High blood cholesterol Cardiovascular disease Unknown High blood pressure High blood cholesterol Cardiovascular disease Social History Housing: House Alcohol intake: current Comment: social Patient Tobacco Use Status: Former Tobacco user e-Cigarette/Vaping Use: Never Used service: No Current occupational status: employed 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 1. Little interest or pleasure in doing things: not at all 2. Feeling down, depressed, or hopeless: not at all 3. Trouble falling or staying asleep, or sleeping too much: not at all 4. Feeling tired or having little energy: not at all 5. Poor appetite or overeating: not at all 6. Feeling bad about yourself - or that you are a failure or have let yourself or your family down: not at all 7. Trouble concentrating on things, such as reading the newspaper or watching television: not at all 8. Moving or speaking so slowly that other people could have noticed. Or the opposite - being so fidgety or restless that you have been moving around a lot more than usual: not at all 9. Thoughts that you would be better off or of hurting yourself in some way: not at all Total score: 0 Depression Screening Interpretation: Negative Depression Screening Done: Yes 41570 - PHQ-9 Billing: Yes Source: Developed by Drs. Manny Simpson, Isabella Pérez, David Herring and colleagues, with an educational stacie from [employer]. Thrive Questionnaire Date Thrive assessed: 08/31/24 I am a: Patient What is your living situation today?: I choose not to answer this question Within the past 12 months, did the food you bought not last and you didn't have the money to get more?: I choose not to answer this question Within the past 12 months, did you worry whether your food would run out before you got money to buy more?: I choose not to answer this question Do you have trouble paying for medicines?: I choose not to answer this question Do you have trouble getting transportation to medical appointments?: I choose not to answer this question Do you have trouble paying your heating and electricity bill?: I choose not to answer this question Do you have trouble taking care of your child, family member or friend?: I choose not to answer this question Do you have trouble with day-to-day activities such as bathing, preparing meals, shopping, managing finances, etc.?: I choose not to answer this question Are you currently unemployed and looking for a job?: I choose not to answer this question Are you interested in more education?: I choose not to answer this question Please select the resources that you would like help with: None Currently or been in a relationship where the following occur: I choose not to answer THRIVE Score: 0 AUDIT C Alcohol Use Questionnaire (AUDIT-C) 1. How often do you have a drink containing alcohol?: 2-3 times a week 2. How many drinks containing alcohol do you have on a typical day when you are drinking?: 7 to 9 3. How often do you have six or more drinks on one occasion?: Weekly Total Score: 9 Score Reviewed/Action Taken: Yes VEE-7 AMB Questionnaire VEE-7 Date VEE - 7 assessed: 08/22/24 Source: Developed by Drs. Manny Simpson, Isabella Pérez, David Herring and colleagues, with an educational stacie from [employer]. Physical exam (Primary Care) Vital Signs: Last Vital Signs Temp 97.7 F 08/31/24 13:06 Pulse 62 08/31/24 13:06 Resp 14 08/31/24 13:06 BP 124/60 08/31/24 13:23 Pulse Ox 95 08/31/24 13:06 Oxygen Delivery Method Room Air 08/31/24 13:06 BMI result Body Mass Index 35.2 BMI Assessment/Plan discussion: High BMI High, discussed plan: lifestyle Tobacco/Smoking Status: Tobacco use Status Tobacco use date assessed 10/14/23 08/31/24 13:08 Patient Tobacco Use Status Former Tobacco user 08/31/24 13:08 e-Cigarette/Vaping Use Never Used 08/31/24 13:08 PHQ-9: PHQ-9 Score PHQ-9: Total score 0 08/31/24 13:23 Depression Screening Interpretation: Negative Thrive Assessment: Date of Thrive Assessment Date Thrive assessed 08/31/24 08/31/24 13:08 Currently or been in a relationship where the following occur: I choose not to answer Coding Level of Care Code Est Pt Level 5 (80171) Complex EM visit Add On G2211 Diagnoses Mixed hyperlipidemia E78.2 Hyperlipidemia type: mixed hyperlipidemia IFG (impaired fasting glucose) R73.01 Vitamin D deficiency E55.9 PAD (peripheral artery disease) I73.9 Hypertriglyceridemia, sporadic E78.3 Uncomplicated alcohol dependence F10.20 Substance use status: uncomplicated Atherosclerotic cardiovascular disease I25.10 B12 deficiency E53.8 Acute right-sided low back pain without sciatica M54.50 Back pain location: low back pain Chronicity: acute Back pain laterality: right Sciatica presence: without sciatica BMI 35.0-35.9,adult Z68.35 Mild episode of recurrent major depressive disorder F33.0 Major depression episode severity: mild NAHID on CPAP G47.33 Retrograde ejaculation N53.14 Screening for colon cancer Z12.11 Severe obesity (BMI 35.0-35.9 with comorbidity) E66.01; Z68.35 Status post aorto-coronary artery bypass graft Z95.1 CPT Codes [facility] OUTPT/OFFICE VIS - G2212 Additional Codes PHQ-9 - 39181 - PHQ-9 Billing: Yes ([id number]) Assessment & Plan Assessment & Plan (1) Hyperlipidemia: Comment: on atorvastatin 80 mg daily + Fish oil Triglycerides elevated otherwise WNL. Code(s): E78.5 - Hyperlipidemia, unspecified Category: Medical Qualifiers: Hyperlipidemia type: mixed hyperlipidemia Qualified Code(s): E78.2 - Mixed hyperlipidemia (2) IFG (impaired fasting glucose): Comment: normal hga1c Provided dietary education to him. Code(s): R73.01 - Impaired fasting glucose Category: Medical (3) Vitamin D deficiency: Comment: VIt d low on 2000IU QD. Plan: completed weekly Vit D3 50,000IU x 12 weeks. Repeat labs and update meds PRN, value pending . Code(s): E55.9 - Vitamin D deficiency, unspecified Category: Medical (4) PAD (peripheral artery disease): Comment: Affecting BLE based on physical exam on statin, plavix and ASA monitor skin integrity Code(s): I73.9 - Peripheral vascular disease, unspecified Category: Medical (5) Hypertriglyceridemia, sporadic: Comment: labs 06/24/24 Code(s): E78.3 - Hyperchylomicronemia Category: Medical (6) EtOH dependence: Code(s): F10.20 - Alcohol dependence, uncomplicated Category: Medical Qualifiers: Substance use status: uncomplicated Qualified Code(s): F10.20 - Alcohol dependence, uncomplicated (7) Atherosclerotic cardiovascular disease: Code(s): I25.10 - Atherosclerotic heart disease of [place] coronary artery without angina pectoris Category: Medical (8) B12 deficiency: Comment: Reports that he required injections in the past but stopped going due to the commitment. Has been maintained on oral B12 since this time. He is unsure if he was diagnosed with pernicious anemia. Record requested. b12 WNL 10/2023, At this time continue oral B12 supplement. Code(s): E53.8 - Deficiency of other specified B group vitamins Category: Medical (9) Back pain: Code(s): M54.9 - Dorsalgia, unspecified Category: Medical Qualifiers: Back pain location: low back pain Chronicity: acute Back pain laterality: right Sciatica presence: without sciatica Qualified Code(s): M54.50 - Low back pain, unspecified (10) BMI 35.0-35.9,adult: Code(s): Z68.35 - Body mass index [BMI] 35.0-35.9, adult Category: Medical (11) MDD (major depressive disorder), recurrent episode: Comment: Maintained on sertraline 100 mg p.o. daily. Continue Code(s): F33.9 - Major depressive disorder, recurrent, unspecified Category: Medical Qualifiers: Major depression episode severity: mild Qualified Code(s): F33.0 - Major depressive disorder, recurrent, mild (12) NAHID on CPAP: Comment: refer to [facility] Sleep med for mgmt Code(s): G47.33 - Obstructive sleep apnea (adult) (pediatric) Category: Medical (13) Retrograde ejaculation: Code(s): N53.14 - Retrograde ejaculation Category: Medical (14) Screening for colon cancer: Comment: cologaurd negative 07/13/24 Code(s): Z12.11 - Encounter for screening for malignant neoplasm of colon Category: Medical (15) Severe obesity (BMI 35.0-35.9 with comorbidity): Comment: > 35 htn and hld Code(s): E66.01 - Morbid (severe) obesity due to excess calories; Z68.35 - Body mass index [BMI] 35.0-35.9, adult Category: Medical (16) Status post aorto-coronary artery bypass graft: Code(s): Z95.1 - Presence of aortocoronary bypass graft Category: Surgical Plan . Orders: Orders Comprehensive [place]. Panel Fast 11/08/24 E55.9 - Vitamin D deficiency, unspecified, E78.2 - Mixed hyperlipidemia, E78.3 - Hyperchylomicronemia, F10.20 - Alcohol dependence, uncomplicated, I73.9 - Peripheral vascular disease, unspecified, R73.01 - Impaired fasting glucose Vitamin D 25-OH Total 11/08/24 E55.9 - Vitamin D deficiency, unspecified Hemoglobin A1c 11/08/24 E55.9 - Vitamin D deficiency, unspecified, E78.2 - Mixed hyperlipidemia, E78.3 - Hyperchylomicronemia, F10.20 - Alcohol dependence, uncomplicated, I73.9 - Peripheral vascular disease, unspecified, R73.01 - Impaired fasting glucose Lipid Panel 11/08/24 E55.9 - Vitamin D deficiency, unspecified, E78.2 - Mixed hyperlipidemia, E78.3 - Hyperchylomicronemia, F10.20 - Alcohol dependence, uncomplicated, I73.9 - Peripheral vascular disease, unspecified, R73.01 - Impaired fasting glucose Microalbumin, Random (w Creat) 11/08/24 E55.9 - Vitamin D deficiency, unspecified, E78.2 - Mixed hyperlipidemia, E78.3 - Hyperchylomicronemia, F10.20 - Alcohol dependence, uncomplicated, I73.9 - Peripheral vascular disease, unspecified, R73.01 - Impaired fasting glucose Vitamin B12 and Folate 11/08/24 E55.9 - Vitamin D deficiency, unspecified, E78.2 - Mixed hyperlipidemia, E78.3 - Hyperchylomicronemia, F10.20 - Alcohol dependence, uncomplicated, I73.9 - Peripheral vascular disease, unspecified, R73.01 - Impaired fasting glucose Complete Blood Count no Diff 11/08/24 E55.9 - Vitamin D deficiency, unspecified, E78.2 - Mixed hyperlipidemia, E78.3 - Hyperchylomicronemia, F10.20 - Alcohol dependence, uncomplicated, I73.9 - Peripheral vascular disease, unspecified, R73.01 - Impaired fasting glucose
[2024-08-31 13:06] VITALS: BP 142/76; PULSE 62; RESP 14; TEMP 36.5; O2SAT 95; BMI 35.2
[2024-08-31 13:23] VITALS: BP 124/60
--- OUTSIDE RECORDS SUMMARY | 2024-08-31 14:55 | XMS_ITS | Data Portability ---
Author Organization [facility] [id number] Address [address] [place] [address] Assessment No assessment recorded. Plan of Treatment Reminders Order Date Submit Date Provider Last Modified By Organization Details Last Modified Time Details Appointments None record ed. Lab None record ed. Referral None record ed. Procedures None record ed. Surgeries None record ed. Imaging None record ed. Medication Orders None record ed. Patient TargetsNo targets recorded. Patient InstructionsNo instructions recorded. Reason for Referral None Reported. Medical Equipment None Reported. Vitals None Recorded Social History None recorded. Functional Status None recorded. Mental Status None recorded. Family History Nothing Reported. Medical History No medical history recorded. Past Encounters Encounter ID Performer Location Encounter Start Date Encounter Closed Date Diagnosis/Indication Diagnosis SNOMED-CT Code Diagnosis ICD10 Code Diagnosis Note [id number] [address] 11/13/2017 11:47:20 11/13/2017 13:02:30 [id number] [address] 07/01/2019 15:10:17 07/01/2019 17:19:52 [id number] [address] 07/01/2019 17:05:04 07/01/2019 17:21:19 [id number] [address] 01/18/2019 15:42:44 01/18/2019 16:43:48 [id number] [address] 12/15/2020 10:59:24 12/15/2020 11:35:03 Health Concerns Section Related Observation LastModified by Organization Edis bunch LastModified Time None Recorded Concern Status LastModified by Organization Details LastModified Time None Recorded Advance Directives Directive None Recorded Payers Encounter Date Sequence Insurance Name Policy Number Policy Mata Covered Member ID Mata Member ID Guarantor Name 12/15/2020 1 [facility] [id number] John Quinn [id number] John Quinn
== END 2024-08-31 13:36 | disposition home or self-care (01) ==
PROVIDERS: PCP Nurse Practitioner Family; Visit Provider Nurse Practitioner Family
DX: I73.9 Peripheral vascular disease, unspecified (principal); F10.20 Alcohol dependence, uncomplicated; F33.0 Major depressive disorder, recurrent, mild; E66.01 Morbid (severe) obesity due to excess calories; Z68.35 Body mass index [BMI] 35.0-35.9, adult; E78.2 Mixed hyperlipidemia; R73.01 Impaired fasting glucose; E55.9 Vitamin D deficiency, unspecified; E78.3 Hyperchylomicronemia; I25.10 Atherosclerotic heart disease of native coronary artery without angina pectoris; E53.8 Deficiency of other specified B group vitamins; M54.50 Low back pain, unspecified

== ENCOUNTER → 2024-08-31 13:01 | Outpatient (BNVA) | payer OTHER, SELFPAY | PROVIDERS: PCP Nurse Practitioner Family; Visit Provider Nurse Practitioner Family | DX: E78.2 Mixed hyperlipidemia (principal); R73.01 Impaired fasting glucose; E55.9 Vitamin D deficiency, unspecified; I73.9 Peripheral vascular disease, unspecified; E78.3 Hyperchylomicronemia; F10.20 Alcohol dependence, uncomplicated; I25.10 Atherosclerotic heart disease of native coronary artery without angina pectoris; E53.8 Deficiency of other specified B group vitamins; M54.50 Low back pain, unspecified; F33.0 Major depressive disorder, recurrent, mild; G47.33 Obstructive sleep apnea (adult) (pediatric); N53.14 Retrograde ejaculation; E66.01 Morbid (severe) obesity due to excess calories; Z68.35 Body mass index [BMI] 35.0-35.9, adult; Z79.02 Long term (current) use of antithrombotics/antiplatelets; Z79.82 Long term (current) use of aspirin; Z79.899 Other long term (current) drug therapy; Z95.1 Presence of aortocoronary bypass graft; Z99.89 Dependence on other enabling machines and devices | CPT/HCPCS: 96127 ==

== ENCOUNTER 2024-09-01 11:29 | Outpatient (REF) | payer OTHER, SELFPAY ==
--- NOTE | ~2024-09-01 | XR_ITS ---
EXAMINATION: Lumbar spine 4 views. CLINICAL INDICATION: Low back pain. COMPARISON: None. FINDINGS: There is normal lumbar lordosis. The vertebral heights, alignment and disc heights are normal. There is mild ventral spondylosis at all lumbar levels. No visible acute fracture or dislocation seen. SI joints are symmetrical and normal. The paravertebral soft tissues are normal. XR/XR lumbar spine 4V min IMPRESSION: Mild degenerative ventral spondylosis lumbar spine. No visible acute fracture or dislocation seen Electronically signed by: Mik Calvert MD 09/01/2024 01:10 PM EST
== END 2024-09-01 11:30 | disposition home or self-care (01) ==
LOC: HO.XRAY 11:29
PROVIDERS: PCP Nurse Practitioner Family; Visit Provider Registered Nurse Emergency
DX: M54.50 Low back pain, unspecified (principal)
CPT/HCPCS: 72110

== ENCOUNTER 2024-09-01 11:29 | Outpatient (AMB) | payer OTHER, SELFPAY ==
[2024-09-01 11:34] VITALS: BP 136/76; BMI 34.3
--- NOTE | 2024-09-01 11:34 | A.OFFVIS_ITS ---
Vital Signs 09/01/24 11:34 Height 5 ft 10 in Weight 239 lb BMI 34.3 BP 136/76 Blood Pressure Location Rt brachial Position Sitting Intake Visit Reasons: Low back pain Allergies cat dander Allergy (Intermediate, Verified 09/01/24 11:36) Sneezing dog dander Allergy (Intermediate, Verified 09/01/24 11:36) Sneezing Seasonal Allergies Allergy (Intermediate, Verified 09/01/24 11:36) Sneezing HPI Comments Details: John is a very pleasant 64-year-old male who presented to the office today for evaluation management of his right lower back pain He has been suffering with this pain since June 2024, started after he underwent a cardiac catheterization. Endorses right lower back pain minimally tender to palpation. Worse with walking and movement. Denies recent x-ray, attempts at physical therapy acupuncture massage or chir opractor. He has been taking NSAIDs, muscle relaxers and using topical medications, ice and heat with minimal improvement of his symptoms. Denies radiation of the pain down either lower extremity Denies red flag symptoms including new loss of bowel, bladder or saddle anesthesia Pain right now is 0/10. In terms of muscle damage condition is described as constant, aching, dull, spasm Pain is negatively impacting patient's enjoyment of life, general activity, ambulate lesion, mobility, bloody to perform activities of daily living. Patient is trying to complete Cardiac rehab but has not been able to secondary to this pain. Denies implantable devices, pacemaker or defibrillator Endorses current use of Plavix Denies current use of nicotine, tobacco, illicit substances. Social EtOH use [facility] Medical History (Updated 09/01/24 @ 12:16 by Tressa Sauceda APRN, STOREROOM ATTENDANT) Stenosis of other cardiac prosthetic devices, implants and grafts, initial encounter Psoriasis Plantar fasciitis Shoulder injury Heart disease High cholesterol High blood pressure Surgical History Status post aorto-coronary artery bypass graft H/O turbinectomy H/O endoscopic sinus surgery H/O nasal septoplasty Family History Mother Ovarian cancer Father High blood pressure High blood cholesterol Cardiovascular disease Unknown High blood pressure High blood cholesterol Cardiovascular disease Social History (Reviewed 07/13/24 @ 11:18 by Araceli Nickerson [facility] Housing: House Alcohol intake: current Comment: social Patient Tobacco Use Status: Former Tobacco user e-Cigarette/Vaping Use: Never Used service: No Current occupational status: employed 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 Answers questions appropriately. Fully engaged in examination. Skin: warm, dry, intact HEENT: Normocephalic. Hearing intact. Cardiac: External chest normal in appearance. Respiratory: No cough, audible wheezing or stridor. Abdomen: without gross distension. MS: No obvious swelling or deformities. Able to stand on bilateral tiptoes and bilateral heels.? Able to transition from sit to stand unassisted. Ambulates with bilaterally normal heel strike and toe off Lumbar range of motion intact Minimally tender over right lumbar musculature. Nontender over midline lumbar vertebrae and lumbar paraspinal muscles SLR negative bilaterally Negative footdrop, negative clonus. Valsalva negative Nontender over bilateral PSIS Neurological: Oriented to person, place, time and situation. Thought process intact. No gait abnormalities appreciated. Psychiatric: Appropriate mood and affect. Good judgment and insight. Assessment & Plan Assessment & Plan (1) Right low back pain: Code(s): M54.50 - Low back pain, unspecified Category: Medical Qualifiers: Chronicity: acute Sciatica presence: without sciatica Qualified Code(s): M54.50 - Low back pain, unspecified (2) Lumbar muscle pain: Code(s): M79.18 - Myalgia, other site Category: Medical Plan John is a very pleasant 64-year-old male who presented to the office today for evaluation and management of his right lower back pain History, physical exam and provocative testing consistent with lumbar muscle pain Order placed for PT eval and treat X-ray ordered for evaluation Continue with muscle relaxers as prescribed by PCP TENS unit ordered, pamphlet provided to patient with instructions on use. All questions and concerns were answered, patient agrees with plan. Follow up after PT, sooner if needed Orders: Orders XR lumbar spine 4V min Today M54.50 - Low back pain, unspecified PT Evaluation and Treatment Today M54.50 - Low back pain, unspecified, M79.18 - Myalgia, other site Coding Level of Care Code New Pt Level 4 (49426) Complex EM visit Add On G2211 Diagnoses Acute right-sided low back pain without sciatica M54.50 Chronicity: acute Sciatica presence: without sciatica Lumbar muscle pain M79.18
== END 2024-09-01 12:01 | disposition home or self-care (01) ==
PROVIDERS: PCP Nurse Practitioner Family; Visit Provider Registered Nurse Emergency
DX: M54.50 Low back pain, unspecified (principal); M79.18 Myalgia, other site
CPT/HCPCS: 99204

== ENCOUNTER → 2024-09-01 12:13 | Outpatient (BNV) | payer OTHER, SELFPAY | PROVIDERS: PCP Nurse Practitioner Family; Visit Provider Radiology Diagnostic Radiology | DX: M54.50 Low back pain, unspecified (principal) | CPT/HCPCS: 72110 ==

== ENCOUNTER 2024-10-05 10:59 | Outpatient (RCR) | payer OTHER, SELFPAY ==
--- NOTE | 2024-09-07 15:24 | MHC.PT.EP ---
[facility] [place] Office [place] Office [place] Office [address] [phone] F: [phone] F: [phone] F: [phone] F: [phone] Physical Therapy Plan of Care Date of Evaluation: 09/07/24 Date of Surgery: JUN 2024 Diagnosis: RIGHT LBP Assessment: Pt IS 64 YO M REFERRED TO PT FROM LIZZETH ARIZMENDI (PAIN MANAGEMENT) WITH LBP (R SIDED SI AREA) SINCE JUN (COINCIDING WITH CARDIAC SURGERY). PRESENTS WITH ANTALGIC GT, LIMITED TRUNK AND LE FLEXIBILITY, POOR CORE STRENGTH (SIGNIF HERNIA). Pt REPORTS ONE SPOT OF PAIN (SUPRA SI R). SOME DIFFICULTY WITH SACRAL/PELVIC ASSESSMENT BECAUSE OF BODY HABITUS, BUT IS NOTED TO HAVE SOME MM ASYMMETRIES. SHOULD BENEFIT FROM PT TO ADDRESS THESE ISSUES Frequency and Duration: The patient will be seen 2X/WK X 2 WKS THEN 1X/WK X 4 WKS (60$ COPAY) Short Term Goals: 1. INCREASE AWARENESS POSTURE, BODY MECH AND BACK CARE 2. RTW Snf Goals: 1. I HEP WITH DC EX PLAN 2. DECREASED LBP AT LEAST 50% WITH ADLS Treatment Plan: Modalities to reduce pain, spasms and effusion. Manual therapy to restore motion and function. Therapeutic exercise to improve strength and flexibility. Neuromuscular re-education for posture and balance. Therapeutic activities to return to functional activities of daily living. Electronically signed by: JANEL IZQUIERDO PT Please sign and return to therapist. Thank you for your referral.
--- NOTE | 2024-11-09 13:23 | MHC.PT.DC ---
[facility] [place] Office [place] Office [place] Office [address]ibell Felix [address] [phone] F: [phone] F: [phone] F: [phone] F: [phone] Physical Therapy Discharge Report Diagnosis: R LBP Date of Surgery: JUN 2024 Date of Evaluation: 09/07/24 Date of Discharge: 11/09/24 Treatments to Date: 5 Cancellations to Date: No Shows to Date: Discharge Status: Discharge Summary: 10/07/24: Pt called to cancel appt, reports sudden in his family. Cancelled for next week appt too. Pt educated he can resume PT should he wish at any time to call when feeling ready. OF 11/09/24, NO FURTHER APPTS SCHEDULED, SO WILL DC RECORD. IF FURTHER PT WARRANTED A NEW EVAL WOULD BE NEEDED Electronically signed by: JANEL ALCALA Please sign and return to therapist. Thank you for your referral.
== END 2024-11-09 13:24 | disposition home or self-care (01) ==
LOC: HO.PTWFD 10:59
PROVIDERS: PCP Nurse Practitioner Family; Visit Provider Registered Nurse Emergency
DX: M54.50 Low back pain, unspecified (principal); M79.18 Myalgia, other site
CPT/HCPCS: 97014; 97110; 97140; 97162; 97530; 97535

== ENCOUNTER 2024-10-10 14:33 | Outpatient (AMB) | payer OTHER, SELFPAY ==
[2024-10-10 14:40] VITALS: BP 118/82; BMI 35.7
--- NOTE | 2024-10-10 14:40 | A.OFFVIS_ITS ---
Vital Signs 10/10/24 14:40 Height 5 ft 10 in Weight 249 lb 2 oz BMI 35.7 BP 118/82 Blood Pressure Location Lt brachial Position Sitting Intake Visit Reasons: INP-NAHID Intake Note: Inpatient referral for NAHID. Needs new machine 20+years old Allergies cat dander Allergy (Intermediate, Verified 10/10/24 14:43) Sneezing dog dander Allergy (Intermediate, Verified 10/10/24 14:43) Sneezing Seasonal Allergies Allergy (Intermediate, Verified 10/10/24 14:43) Sneezing HPI Comments Details: 64 year old r. handed male presents for a sleep evaluation per PCP Carri Borden. He goes to bed at midnight and gets up at 8am, with zero bathroom breaks. He has sleep apnea and has been using his CPAP since 2004, he also uses a nasal pillow mask. He c/o continuous sinus drainage and congestion despite taking various OTC and RX medications, he can't get any air into or out of his nose which makes it very difficult to breathe at night and has to sit upright with pillows to breath. He continues to snore and wheezes. He drinks, 2 glasses a wine nightly and smokes 1 pack of cigarettes per day. He denies restless leg syndrome and morning headaches. His memory is okay he occasionally forgets tasks and has to write them down. His mood is stable, he recently lost his mother, and taking Buproprion. Diet is good, he is trying to lose weight and quit smoking, he monitors what he eats daily since his recent angioplasty in Jun 2024. [facility] Medical History Stenosis of other cardiac prosthetic devices, implants and grafts, initial encounter Psoriasis Plantar fasciitis Shoulder injury Heart disease High cholesterol High blood pressure Surgical History H/O angioplasty Status post aorto-coronary artery bypass graft H/O turbinectomy H/O endoscopic sinus surgery H/O nasal septoplasty Family History Mother Ovarian cancer Father High blood pressure High blood cholesterol Cardiovascular disease Unknown High blood pressure High blood cholesterol Cardiovascular disease Social History Housing: House Alcohol intake: current Comment: social Patient Tobacco Use Status: Former Tobacco user e-Cigarette/Vaping Use: Never Used service: No Current occupational status: employed 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 Cognitive needs: No Hearing needs: No Vision needs: Yes Physical Exam Vital Signs: Last Vital Signs BP 118/82 10/10/24 14:40 BMI result Body Mass Index 35.7 Const General: cooperative, comfortable and no acute distress Nutritional Appearance: obese Orientation/consciousness: patient oriented x3 HEENT Face and sinus: Yes normal facial exam and Yes face symmetric Throat: Yes other ([place] score of 3) Eyes Pupils: Equal, round and reactive pupils present Neck Neck: Yes full ROM and Yes supple Resp Effort & Inspection: normal respiratory effort, able to speak in complete sentences and audible wheezes Neuro General: patient oriented x3 and moves all extremities Cranial nerves: Yes CN's II-XII intact bilaterally, Yes Facial sensation intact/muscles of mastication intact, Yes Equal, round and reactive pupils present, Yes Normal accommodation reflex present, Yes Bilaterally intact EOM present, Yes Normal facial strength present, Yes Midline tongue present, Yes Ability to bilaterally rotate head present and Yes Ability to bilaterally elevat e shoulders present Gait exam (Neuro): Other gait observations present (R. Foot Bunion Injury) Motor exam (neuro): 5/5 motor strength present throughout and Normal motor muscle tone present throughout Deep tendon reflexes (DTR's): Right triceps reflex intensity grade: 2+, Left triceps reflex intensity grade: 2+, Rt Biceps (C5, C6): 2+, Left biceps reflex intensity grade: 2+, Right brachioradialis reflex intensity grade: 2+, Left brachioradialis reflex intensity grade: 2+, Right patellar reflex intensity grade: 2+ and Left patellar reflex intensity grade: 2+ Coordination: rapid alternating movements of the distal upper extremity normal Psych Appearance: grossly normal Affect: normal affect Thought process: Normal thought process present Thought content: Normal thought content present Results Reviewed Results Reviewed: Labs B12 Deficiency Assessment & Plan Assessment & Plan (1) Loud snoring: Code(s): R06.83 - Snoring Category: Medical (2) Fatigue due to sleep pattern disturbance: Code(s): R53.83 - Other fatigue; G47.9 - Sleep disorder, unspecified Category: Medical (3) Difficulty walking: Code(s): R26.2 - Difficulty in walking, not elsewhere classified Category: Medical (4) Nasal sinus congestion: Code(s): R09.81 - Nasal congestion Category: Medical (5) History of deviated nasal septum: Code(s): Z87.09 - Personal history of other diseases of the respiratory system Category: Medical Plan HST to evaluate Sleep apnea Labs are current will f/u for RLS. ENT Referral Sinus Congestion and drainage. Podiatry Referral for R. Toe Bunion / injury and difficulty ambulating. Orders: Orders RT home sleep study Today G47.19 - Other hypersomnia Referrals Ear/Nose/Throat Referral R06.83 - Snoring, R09.81 - Nasal congestion, Z87.09 - Personal history of other diseases of the respiratory system Podiatry Referral R26.2 - Difficulty in walking, not elsewhere classified Patient Instructions: Sleep Hygiene provided : Sleep in a cool and dark room, no devices in bed, may read and limit fluids 2 hours prior to bed. The number one modifiable RF for Cardiovascular events is management of high blood pressure. Smoking Cessation is available when and if patient is amenable and open to counseling along with Nicotine patches, gum, and Buproprion. Coding Level of Care Code New Pt Level 4 (12593) Complex EM visit Add On G2211 Diagnoses Loud snoring R06.83 Fatigue due to sleep pattern disturbance R53.83; G47.9 Difficulty walking R26.2 Nasal sinus congestion R09.81 History of deviated nasal septum Z87.09 Time Spent (min) 30 Comment Evaluation Sleep Questionnaire Difficulty falling asleep: Yes Difficulty staying asleep?: Yes Number of arousals: 5-6 Snoring: Yes Witnessed apneas: Yes Gasping arousals: No Nocturia: No GERD: No Vivid dreams: Yes (intense) Acting out dreams: No Abnormal behavior in sleep: No Abnormal movements in sleep: No Morning headaches: No Excessive daytime sleepiness: No Daytime naps: No Restless legs: No Hallucinations: No Sleep paralysis: No Drop attacks: No Sleep Study: Yes CPAP: Yes
--- OUTSIDE RECORDS SUMMARY | 2024-10-10 17:20 | XMS_ITS | Data Portability ---
Author Organization [facility] [id number] Address [address] [place] [address] Assessment No assessment recorded. Plan of Treatment [...] SNOMED-CT Code Diagnosis ICD10 Code Diagnosis Note [id number] [address] [address] 11/13/2017 11:47:20 11/13/2017 13:02:30 [id number] 20[facility] [address] [address] 07/01/2019 15:10:17 07/01/2019 17:19:52 [id number] [facility] [address] [address] 07/01/2019 17:05:04 07/01/2019 17:21:19 [id number] 2099[place] [address] [address] 01/18/2019 15:42:44 01/18/2019 16:43:48 [id number] [facility] [address] [address] 12/15/2020 10:59:24 12/15/2020 11:35:03 Health Concerns Section Related Observation LastModified by Organization Edis bunch LastModified Time None Recorded Concern Status LastModified by Organization Details LastModified Time None Recorded Advance Directives Directive None Recorded Payers Encounter Date Sequence Insurance Name Policy Number Policy Mata Covered Member ID Mata Member ID Guarantor Name 12/15/2020 1 [facility] [id number] John Quinn [id number] John Quinn
== END 2024-10-10 15:17 | disposition home or self-care (01) ==
PROVIDERS: PCP Nurse Practitioner Family; Visit Provider Physician Assistant Medical
DX: R06.83 Snoring (principal); R53.83 Other fatigue; G47.9 Sleep disorder, unspecified; R26.2 Difficulty in walking, not elsewhere classified; R09.81 Nasal congestion; Z87.09 Personal history of other diseases of the respiratory system
CPT/HCPCS: 99204

== ENCOUNTER → 2024-10-10 14:33 | Outpatient (BNVA) | payer OTHER, SELFPAY | PROVIDERS: PCP Nurse Practitioner Family; Visit Provider Physician Assistant Medical ==

== ENCOUNTER 2024-12-13 11:54 | Outpatient (AMB) | payer OTHER, SELFPAY ==
--- NOTE | 2024-12-13 11:59 | MHC.PC.OV ---
Vital Signs 12/13/24 12:02 Height 5 ft 10 in Weight 246 lb BMI 35.3 BP 138/77 Blood Pressure Location Rt brachial Position Sitting Respiration 13 Pulse 66 Pulse Source Pulse Oximeter Temp 97.4 F Temp Source Oral Pulse Oximetry (%) 98 Oxygen Delivery Method Room Air Intake Visit Reasons: 4 months 30 min CPE Intake Note: CPE Doctor Of Audiology Required: No Allergies cat dander Allergy (Intermediate, Verified 12/13/24 12:13) Sneezing dog dander Allergy (Intermediate, Verified 12/13/24 12:13) Sneezing Seasonal Allergies Allergy (Intermediate, Verified 12/13/24 12:13) Sneezing Medication List - Last Reconciled 12/13/24 by Becka Borden, CLEARING TUB WORKER- aspirin 81 mg PO DAILY atorvastatin 80 mg PO DAILY bupropion HCl XL (Wellbutrin XL) 150 mg PO QAM celecoxib (Celebrex) 200 mg PO Q12H PRN 1 month clopidogrel 75 mg PO DAILY coQ10 (ubiquinol) (Qunol Tony CoQ10) 100 mg PO BID fluticasone propionate 50 mcg/actuation (Flonase Allergy Relief) 2 sprays intranasal DAILY isosorbide mononitrate ER 30 mg PO ONCE mecobalamin (vitamin B12) mcg PO metoprolol succinate ER 50 mg PO DAILY omega-3 acid ethyl esters 1 cap PO BID sertraline 100 mg PO DAILY tizanidine 4 mg PO BID Tobacco use date assessed: 12/13/24 Dental Screening Dental Screen Date: 12/13/24 Did you have a dental visit in the last 12 months?: Yes Did you have a dental problem in the last 6 months where you did not have access to dental care?: No Was dental information given to patient?: Patient has dentist HPI HPI Comments History of Present Illness Details 64-year-old male with CAD S/P triple bypass 2016, psoriasis, plantar fasciatis , MDD, hyperlipidemia, Vit D def, Vit b12 def, IFG, etoh dependence, NAHID on CPAP, seasonal allergies, obesity s/p LAD PCI in 2008. Brachytherapy to ISR of LAD 2002. Circumflex PCI 2006. CABG 2015. Health maintenance Colonoscopy Cologaurd complete 07/13/24 WNL, repeat 3 years PSA UTD within normal limits Vaccines flu, COVID UTD. Tdao today Specialists Derm Podiatry Cards due for f/u Sleep Med appt in October 2024 GI Pain mgmt 09/01/24 Optho wears glasses, due for exam. New referral placed to Dr De La Torre History of Present Illness - The patient is a 64-year-old male presenting for a complete physical examination. - Significant past medical history includes coronary artery disease with a triple bypass in 2016, psoriasis, planter fasciitis, and other chronic conditions. - Back pain has improved post-physical therapy, and the patient maintains a positive attitude toward treatment adherence. - Lifestyle adjustments and treatment adherence have yielded weight loss and mood stabilization. On wellbutrin and sertraline - No urgent concerns regarding retrograde ejaculation - Decreased hearing did computer hearing test, told it was normal, however still has mild issues, wonders if related to earphones used for work. - Due for Cards f/u. Had to cancel last one. on Plavix, Metoprolol & Isosorbide - Abd hernia interested in referral for repair; denies pain. - Etoh intake stable. on b12 supplement - HLD on statin and ASA - Seasonal allergies on flonase - NAHID currently being worked up by Sleep Med, results pending Consults reviewed Pain mgmt 09/01/24 PT Tens supportive care Sleep Med 10/2024 Home Sleep study ordered and pending Health Maintenance - Recent normal Cologuard test results; advised repeat in 2026 - Due for lab work including urine analysis - Required Tdap vaccination administered during the visit - Follow-up for hearing and eye health but patient seeking private arrangements for visual acuity Review of Systems - Cardiovascular: Denies chest pain, orthopnea, and shortness of breath - Psychological: Reports mood is fine, no recent episodes of major depressive symptoms - Respiratory: Denies wheezing or cough - Neurological: Denies dizziness, headaches - Gastrointestinal: Denies abdominal pain, nausea - Musculoskeletal: Denies new joint pain - Dermatological: Denies new skin lesions - Sleep: Expresses dissatisfaction with recent sleep study Physical Exam General: Well developed, well nourished, in no acute distress. Appears stated age. Head: Normocephalic, atraumatic. Eyes: Pupils are equal, round and reactive to light and accommodation. Conjunctivae are clear. Scleras nonicteric Ears: TMs clear AU, EACS WNL. Congestion noted behind bilar eardrums Nose: Patent, without discharge. Neck: Supple, no adenopathy or thyromegaly. No carotid bruit bilat Lungs: Clear to auscultation bilaterally. No rales, rhonchi or wheeze noted. Good air flow in all yusuf. Heart: Regular rate and rhythm. No murmurs, click, rubs or gallops are noted. Abdomen: Bowel sounds present in all quadrants. The abdomen is soft, nontender, with no masses or organomegaly noted. Large hernia noted : Deferred. Reviewed JOSE & recommendations Pulses/Ext: Peripheral pulses are equal and palpable bilaterally. Trace edema BLE R>L, decreased PP bilat, hairless half way down lower ext, skin intact. Neurologic: Gait and station normal. Cranial Nerves 2-12 intact. Motor strength grossly symmetrical and intact. No sensory loss. Balance normal. Skin: No rashes, ulcers, or lesions noted. Turgor is good. Skin color is good. Hair and nails are without abnormalities. Psych: Normal eye contact, affect and mood appropriate, and normal interactions. Patient is alert and appropriate to context. Results - Tests: Recent Cologuard - Normal Assessment and Plan 1. Coronary Artery Disease post triple bypass Management includes continuation of current medications and follow-up with dental technologist. Refilled isosorbide prescription. 2. Major Depressive Disorder Current medication regimen appears effective; continue monitoring. 3. Hyperlipidemia and Obesity Continue current weight management strategies & Statin 4. Alcohol Use Disorder Patient reports reduced intake. Monitor ongoing alcohol use. 5. Vitamin B12 Deficiency Compliance with supplements should continue. 6. Obstructive Sleep Apnea Encourage CPAP use pending adjustments and results from sleep study evaluation. 7. Hernia Referral for surgical consultation placed; acknowledge potential delays. 8. Monitor ears/hearing, any changes let me know. If any further issues w/ retrograde ejaculation, let me know. Patient Instructions - Continue all prescribed medications and ensure timely refills. - Regular follow-up with dental technologist recommended - Contact specialists for hernia repair and routine eye examinations. - Return to the office in six months unless concerns arise sooner. Consent Patient was informed and verbally consented to the use of an ambient scribe for clinic note documentation during this visit. An additional 20 minutes was spent addressing the problem(s) noted at todays visit. This includes time spent before the visit reviewing the chart, time spent during the visit, and time spent after the visit on documentation reviewing laboratory results, diagnostic imaging, medications, performing a medically necessary evaluation, counseling on diagnoses, care coordination, ordering appropriate tests, ordering appropriate medications, review of tests performed by other providers, reporting test results with the patient, communication with other healthcare providers. [facility] Medical History (Updated 12/14/24 @ 20:47 by [facility] Heart disease High blood pressure High cholesterol Plantar fasciitis Psoriasis Shoulder injury Stenosis of other cardiac prosthetic devices, implants and grafts, initial encounter Surgical History (Updated 12/13/24 @ 07:48 by JOSE Slater) H/O angioplasty H/O endoscopic sinus surgery H/O nasal septoplasty H/O turbinectomy History of colonoscopy (~07/2024) Status post aorto-coronary artery bypass graft Family History Mother Ovarian cancer Father High blood pressure High blood cholesterol Cardiovascular disease Unknown High blood pressure High blood cholesterol Cardiovascular disease Social History Housing: House Alcohol intake: current Comment: social Patient Tobacco Use Status: Former Tobacco user e-Cigarette/Vaping Use: Never Used service: No Current occupational status: employed 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 1. Little interest or pleasure in doing things: not at all 2. Feeling down, depressed, or hopeless: not at all 3. Trouble falling or staying asleep, or sleeping too much: not at all 4. Feeling tired or having little energy: not at all 5. Poor appetite or overeating: not at all 6. Feeling bad about yourself - or that you are a failure or have let yourself or your family down: not at all 7. Trouble concentrating on things, such as reading the newspaper or watching television: not at all 8. Moving or speaking so slowly that other people could have noticed. Or the opposite - being so fidgety or restless that you have been moving around a lot more than usual: not at all 9. Thoughts that you would be better off or of hurting yourself in some way: not at all Total score: 0 Depression Screening Interpretation: Negative Depression Screening Done: Yes 73654 - PHQ-9 Billing: Yes Source: Developed by Drs. Manny Simpson, Isabella Pérez, David Herring and colleagues, with an educational stacie from [employer]. Thrive Questionnaire Date Thrive assessed: 12/13/24 I am a: Patient What is your living situation today?: I choose not to answer this question Within the past 12 months, did the food you bought not last and you didn't have the money to get more?: I choose not to answer this question Within the past 12 months, did you worry whether your food would run out before you got money to buy more?: I choose not to answer this question Do you have trouble paying for medicines?: I choose not to answer this question Do you have trouble getting transportation to medical appointments?: I choose not to answer this question Do you have trouble paying your heating and electricity bill?: I choose not to answer this question Do you have trouble taking care of your child, family member or friend?: I choose not to answer this question Do you have trouble with day-to-day activities such as bathing, preparing meals, shopping, managing finances, etc.?: I choose not to answer this question Are you currently unemployed and looking for a job?: I choose not to answer this question Are you interested in more education?: I choose not to answer this question Please select the resources that you would like help with: None Currently or been in a relationship where the following occur: I choose not to answer THRIVE Score: 0 VEE-7 AMB Questionnaire VEE-7 Date VEE - 7 assessed: 08/22/24 Source: Developed by Drs. Manny Simpson, Isabella Pérez, David Herring and colleagues, with an educational stacie from [employer]. Physical exam (Primary Care) Vital Signs: Last Vital Signs Temp 97.4 F 12/13/24 12:02 Pulse 66 12/13/24 12:02 Resp 13 12/13/24 12:02 BP 138/77 12/13/24 12:02 Pulse Ox 98 12/13/24 12:02 Oxygen Delivery Method Room Air 12/13/24 12:02 BMI result Body Mass Index 35.3 Tobacco/Smoking Status: Tobacco use Status Tobacco use date assessed 12/13/24 12/13/24 12:03 Patient Tobacco Use Status Former Tobacco user 12/13/24 12:03 e-Cigarette/Vaping Use Never Used 12/13/24 12:03 PHQ-9: PHQ-9 Score PHQ-9: Total score 0 12/14/24 17:42 Depression Screening Interpretation: Negative Thrive Assessment: Date of Thrive Assessment Date Thrive assessed 12/13/24 12/13/24 12:03 Currently or been in a relationship where the following occur: I choose not to answer Immunizations Boostrix Tdap 2.5 Lf unit-8 mcg-5 Lf/0.5 mL intramuscular syringe Performing Provider: DARON Slater Performing Location: [facility] [place] Family Medicine Administered by: Phuong Templeton RN on 12/13/24 12:45 Dose Route Admin Location Dispensed Lot Number Expiration Date [facility] 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 so the results are falsely elevated. No changes needed. Becka Laboratory Result Units Range Interpretation Provider Comments White Blood Count 7.2 X10*3/uL (4.8-10.8) Red Blood Count 4.55 X10*6/uL (4.60-5.80) Low Hemoglobin 14.1 g/dl (14.0-18.0) Hematocrit 40.3 % (42.0-52.0) Low Mean Corpuscular Volume 88.6 fL (80.0-98.0) Mean Corpuscular Hemoglobin 31.0 pg (27.0-33.0) Mean Corpuscular Hemoglobin Concent 35.0 g/dl (31.0-36.0) Red Cell Distribution Width 13.2 % (11.0-16.0) Platelet Count 163 X10*3/uL (160-400) Mean Platelet Volume 10.0 fL (9.4-12.4) Nucleated RBC Absolute Count (auto) 0.000 X10*3/uL (0.0-0.012) Nucleated Red Blood Cells % (auto) 0.0 /100WBC (0.0-0.2) Sodium Level 139 mmol/L (135-145) Potassium Level 4.5 mmol/L (3.3-5.1) Chloride Level 105 mmol/L (96-108) Carbon Dioxide Level 28 mmol/L (22-29) Anion Gap 11 (12-20) Low Blood Urea Nitrogen 16 mg/dL (9-16) Creatinine 0.80 mg/dL (0.5-1.4) Estimated Creatinine Clearance Calc Not Reportable Estimat Glomerular Filtration Rate > 60 Fasting Glucose 118 mg/dL (60-99) High Estimated Average Glucose 114 mg/dL Hemoglobin A1c Percent 5.6 % (<6.0) Calcium Level 8.9 mg/dL (8.4-10.2) Total Bilirubin 0.7 mg/dL (0.0-1.0) Aspartate Amino Transf (AST/SGOT) 30 U/L (5-37) Alanine Aminotransferase (ALT/SGPT) 25 U/L (0-40) Alkaline Phosphatase 67 U/L (39-117) Total Protein 6.7 g/dL (6.5-8.0) Albumin 4.0 g/dL (3.5-5.0) Triglycerides Level 343 mg/dL (<150) High Cholesterol Level 160 mg/dL (<200) LDL Cholesterol, Calculated 53 mg/dL (<100) HDL Cholesterol 39 mg/dL (>40) Low Vitamin B12 Level 353 pg/mL (200-900) 25-Hydroxy Vitamin D Total 90.6 ng/mL (>30) Folate 6.7 ng/mL (> or = 4.0) Urine Creatinine 108.70 mg/dL Urine Microalbumin 11.0 mg/L Urine Microalbumin/Creatinine Ratio 10.1 ug/mg cr (<30) Coding Level of Care Code Est Pt Level 3 (58691) Est Pt Prev Care 40-64y(88879) Diagnoses Encounter for general adult medical examination with abnormal findings Z00.01 Need for Tdap vaccination Z23 Hernia K46.9 Blurred vision H53.8 Atherosclerotic cardiovascular disease I25.10 B12 deficiency E53.8 Uncomplicated alcohol dependence F10.20 Substance use status: uncomplicated Primary hypertension I10 Hypertension type: primary hypertension Mixed hyperlipidemia E78.2 Hyperlipidemia type: mixed hyperlipidemia IFG (impaired fasting glucose) R73.01 Mild episode of recurrent major depressive disorder F33.0 Major depression episode severity: mild NAHID on CPAP G47.33 PAD (peripheral artery disease) I73.9 Psoriasis L40.9 Retrograde ejaculation N53.14 Severe obesity (BMI 35.0-35.9 with comorbidity) E66.01; Z68.35 Status post aorto-coronary artery bypass graft Z95.1 Additional Codes PHQ-9 - 15230 - PHQ-9 Billing: Yes ([id number]) Assessment & Plan Assessment & Plan (1) Encounter for general adult medical examination with abnormal findings: Onset Date: ~12/2024 Code(s): Z00.01 - Encounter for general adult medical examination with abnormal findings Category: Medical (2) Need for Tdap vaccination: Code(s): Z23 - Encounter for immunization Category: Medical (3) Hernia: Code(s): K46.9 - Unspecified abdominal hernia without obstruction or gangrene Category: Medical (4) Blurred vision: Code(s): H53.8 - Other visual disturbances Category: Medical (5) Atherosclerotic cardiovascular disease: Code(s): I25.10 - Atherosclerotic heart disease of [place] coronary artery without angina pectoris Category: Medical (6) B12 deficiency: Comment: Reports that he required injections in the past but stopped going due to the commitment. Has been maintained on oral B12 since this time. He is unsure if he was diagnosed with pernicious anemia. Record requested. b12 WNL 10/2023, At this time continue oral B12 supplement. Code(s): E53.8 - Deficiency of other specified B group vitamins Category: Medical (7) EtOH dependence: Code(s): F10.20 - Alcohol dependence, uncomplicated Category: Medical Qualifiers: Substance use status: uncomplicated Qualified Code(s): F10.20 - Alcohol dependence, uncomplicated (8) High blood pressure: Comment: Blood pressure at goal less than 130/80 on metoprolol succinate ER 50 mg p.o. daily. Continue Code(s): I10 - Essential (primary) hypertension Category: Medical Qualifiers: Hypertension type: primary hypertension Qualified Code(s): I10 - Essential (primary) hypertension (9) Hyperlipidemia: Comment: on atorvastatin 80 mg daily + Fish oil Triglycerides elevated otherwise WNL. Code(s): E78.5 - Hyperlipidemia, unspecified Category: Medical Qualifiers: Hyperlipidemia type: mixed hyperlipidemia Qualified Code(s): E78.2 - Mixed hyperlipidemia (10) IFG (impaired fasting glucose): Comment: normal hga1c Provided dietary education to him. Code(s): R73.01 - Impaired fasting glucose Category: Medical (11) MDD (major depressive disorder), recurrent episode: Comment: Maintained on sertraline 100 mg p.o. daily. Continue Code(s): F33.9 - Major depressive disorder, recurrent, unspecified Category: Medical Qualifiers: Major depression episode severity: mild Qualified Code(s): F33.0 - Major depressive disorder, recurrent, mild (12) NAHID on CPAP: Comment: refer to [facility] [place] Sleep med for mgmt Code(s): G47.33 - Obstructive sleep apnea (adult) (pediatric) Category: Medical (13) PAD (peripheral artery disease): Comment: Affecting BLE based on physical exam on statin, plavix and ASA monitor skin integrity Code(s): I73.9 - Peripheral vascular disease, unspecified Category: Medical (14) Psoriasis: Comment: Active with Dermatology in the past. Needs a renewal of clotrimazole-betamethasone 1-0.05% cream. Sent today Code(s): L40.9 - Psoriasis, unspecified Category: Medical (15) Retrograde ejaculation: Code(s): N53.14 - Retrograde ejaculation Category: Medical (16) Severe obesity (BMI 35.0-35.9 with comorbidity): Comment: > 35 htn and hld Code(s): E66.01 - Morbid (severe) obesity due to excess calories; Z68.35 - Body mass index [BMI] 35.0-35.9, adult Category: Medical (17) Status post aorto-coronary artery bypass graft: Code(s): Z95.1 - Presence of aortocoronary bypass graft Category: Medical Plan . Orders: Orders TDaP Immunization 12/13/24 Z23 - Encounter for immunization Referrals General Surgery Referral K46.9 - Unspecified abdominal hernia without obstruction or gangrene Ophthalmology Referral H53.8 - Other visual disturbances Medications: Changed From isosorbide mononitrate ER 30 mg PO ONCE 90 tabs 3RF To isosorbide mononitrate ER 30 mg PO DAILY 90 tabs 3RF Patient Instructions: Health screenings for men You should visit your health care provider regularly, even if you feel healthy. The purpose of these visits is to: Screen for medical issues Assess your risk for future medical problems Encourage a healthy lifestyle Update vaccinations and other preventive care services Help you get to know your provider in case of an illness Information Even if you feel fine, you should still see your provider for regular checkups. These visits can help you avoid problems in the future. For example, the only way to find out if you have high blood pressure is to have it checked regularly. High blood sugar and high cholesterol level also may not have any symptoms in the early stages. Simple blood tests can check for these conditions. There are specific times when you should see your provider or receive specific health screenings. The [place] Preventive Services Task Force publishes a list of recommended screenings. Below are screening guidelines for men ages 40 to 64. BLOOD PRESSURE SCREENING Have your blood pressure checked at least once every year. Watch for blood pressure screenings in your area. Ask your provider if you can stop in to have your blood pressure checked. Ask your provider if you need your blood pressure checked more often if: You have diabetes, heart disease, kidney problems, or are overweight or have certain other health conditions You have a first-degree relative with high blood pressure You are Black Your blood pressure top number is from 120 to 129 mm Hg, or the bottom number is from 70 to 79 mm Hg If the top number is 130 mm Hg or greater or the bottom number is 80 mm Hg or greater, this is considered stage 1 hypertension. Schedule an appointment with your provider to learn how you can lower your blood pressure. Effects of age on blood pressure CHOLESTEROL SCREENING Cholesterol screening should begin at age 35 for men with no known risk factors for coronary heart disease. Repeat cholesterol screening should take place: Every 5 years for men with normal cholesterol levels More often if changes occur in lifestyle (including weight gain and diet) More often if you have diabetes, heart disease, kidney problems, or certain other conditions COLORECTAL CANCER SCREENING If you are under age 45, talk to your provider about getting screened. You may need to be screened if you have a strong family history of colon cancer or polyps. Screening may also be considered if you have risk factors such as a history of inflammatory bowel disease or polyps. If you are age 45 to 75, you should be screened for colorectal cancer. There are several screening tests available: A stool-based fecal occult blood (gFOBT) or fecal immunochemical test (FIT) every year A stool sDNA test every 1 to 3 years Flexible sigmoidoscopy every 5 years or every 10 years with stool testing FIT done every year CT colonography (virtual colonoscopy) every 5 years Colonoscopy every 10 years You may need a colonoscopy more often if you have risk factors for colorectal cancer, such as: Ulcerative colitis A personal or family history of colorectal cancer A history of growths in your colon called adenomatous polyps DENTAL EXAM Go to the dentist once or twice every year for an exam and cleaning. Your dentist will evaluate if you have a need for more frequent visits. DIABETES SCREENING All adults who do not have risk factors for diabetes should be screened starting at age 35 and repeated every 3 years. If you have other risk factors for diabetes, such as a first degree relative with diabetes, overweight or obesity, high blood pressure, prediabetes, or a history of heart disease, you may be tested more often. If you are overweight and have other risk factors, such as high blood pressure and are planning to become , screening is recommended. EYE EXAM Have an eye exam every 2 to 4 years ages 40 to 54 and every 1 to 3 years ages 55 to 64. Your provider may recommend more frequent eye exams if you have vision problems or glaucoma risk. Have an eye exam that includes an examination of your retina (back of your eye) at least every year if you have diabetes. IMMUNIZATIONS Commonly needed vaccines include: Flu shot: get one every year COVID-19 vaccine: ask your provider what is best for you Tetanus-diphtheria and acellular pertussis (Tdap) vaccine: have as one of your tetanus-diphtheria vaccines if you did not receive it as an adolescent Tetanus-diphtheria: have a booster (or Tdap) every 10 years Varicella vaccine: receive 2 doses if you never had chickenpox or the varicella vaccine and were born in 1980 or after Hepatitis B vaccine: receive 2, 3, or 4 doses, depending on your exact circumstances, if you did not receive these as a child or adolescent, until age 59 Shingles (herpes zoster) vaccine: at or after age 50 Ask your provider if you should receive other immunizations, especially if you have certain medical conditions, such as diabetes or are at increased risk for some diseases such as pneumonia. INFECTIOUS DISEASE SCREENING Screening for hepatitis C: all adults ages 18 to 79 should get a one-time test for hepatitis C. Screening for human immunodeficiency virus (HIV): all people ages 15 to 65 should get a one-time test for HIV. Depending on your lifestyle and medical history, you may need to be screened for infections such as syphilis, chlamydia, and other infections. LUNG CANCER SCREENING You should have an annual screening for lung cancer with low-dose computed tomography (LDCT) if: You are age 50 to 80 years AND You have a 20 pack-year smoking history AND You currently smoke or have quit within the past 15 years OSTEOPOROSIS SCREENING If you are age 50 to 64 and have risk factors for osteoporosis, you should discuss screening with your provider. Risk factors can include long-term steroid use, low body weight, smoking, heavy alcohol use, having a fracture after age 50, or a family history of hip fracture or osteoporosis. Osteoporosis PHYSICAL EXAM All adults should visit their provider from time to time, even if they are healthy. The purpose of these visits is to: Screen for diseases Assess risk of future medical problems Encourage a healthy lifestyle Update vaccinations and other preventive care services Maintain a relationship with a provider in case of an illness Your height, weight, and body mass index (BMI) should be checked at every exam. During your exam, your provider may ask you about: Depression and anxiety Diet and exercise Alcohol and tobacco use Safety, such as use of seat belts and smoke detectors Your medicines and risk for interactions PROSTATE CANCER SCREENING If you're 55 through 69 years old, before having the test, talk to your provider about the pros and cons of having a PSA test. Ask about: Whether screening decreases your chance of dying from prostate cancer. Whether there is any harm from prostate cancer screening, such as side effects from testing or overtreatment of cancer when discovered. Whether you have a higher risk of prostate cancer than others. If you are age 55 or younger, screening is not generally recommended. You should talk with your provider about if you have a higher risk for prostate cancer. Risk factors include: Having a family history of prostate cancer (especially a brother or father) Being If you choose to be tested, the PSA blood test is repeated over time (yearly or less often), though the best frequency is not known. Prostate examinations are no longer routinely done on men with no symptoms. Prostate cancer SKIN EXAM Your provider may check your skin for signs of skin cancer, especially if you're at high risk. People at high risk include those who have had skin cancer before, have close relatives with skin cancer, or have a weakened immune system. TESTICULAR EXAM The US Preventive Services Task Force (USPSTF) now recommends against performing testicular self-exams. Doing testicular self-exams has been shown to have little to no benefit.
[2024-12-13 12:02] VITALS: BP 138/77; PULSE 66; RESP 13; TEMP 36.3; O2SAT 98; BMI 35.3
--- OUTSIDE RECORDS SUMMARY | 2024-12-13 13:29 | XMS_ITS | Data Portability ---
Author Organization [facility] Address [address] [place] [address] Assessment No assessment recorded. Plan of Treatment [...] SNOMED-CT Code Diagnosis ICD10 Code Diagnosis Note [id number] 2099_[facility] [address] [address] 11/13/2017 11:47:20 11/13/2017 13:02:[id number] [place] [address] [address] [address] 07/01/2019 15:10:17 07/01/2019 17:19:[id number] [place] [address] 20[facility] [address] [place] [address] 07/01/2019 17:05:04 07/01/2019 17:21:[id number] [place] [address] [address] [address] 01/18/2019 15:42:44 01/18/2019 16:43:48 [id number] 20994_[facility] [address] [address] 7 12/15/2020 10:59:24 12/15/2020 11:35:03 Health Concerns Section Related Observation LastModified by Organization Detai ls LastModified Time None Recorded Concern Status LastModified by Organization Details LastModified Time None Recorded Advance Directives Directive None Recorded Payers Encounter Date Sequence Insurance Name Policy Number Policy Mata Covered Member ID Mata Member ID Guarantor Name 12/15/2020 1 [facility] [id number] John Quinn [id number] John Quinn
== END 2024-12-13 12:54 | disposition home or self-care (01) ==
LOC: HO.HMCFM 11:55
PROVIDERS: PCP Nurse Practitioner Family; Visit Provider Nurse Practitioner Family
DX: Z23 Encounter for immunization (principal)

== ENCOUNTER → 2024-12-13 11:54 | Outpatient (BNVA) | payer OTHER, SELFPAY | PROVIDERS: PCP Nurse Practitioner Family; Visit Provider Nurse Practitioner Family | DX: Z13.89 Encounter for screening for other disorder (principal) ==

== ENCOUNTER 2024-12-13 12:05 | Outpatient (REF) | payer OTHER, SELFPAY ==
[2024-12-13 14:46] LABS: Hematocrit 40.3 % (42.0-52.0); Hemoglobin 14.1 g/dl (14.0-18.0); Mean Corpuscular Volume 88.6 fL (80.0-98.0); Platelet Count 163 X10*3/uL (160-400); Red Blood Count 4.55 X10*6/uL (4.60-5.80); Red Cell Distribution Width 13.2 % (11.0-16.0); White Blood Count 7.2 X10*3/uL (4.8-10.8)
[2024-12-13 15:14] LABS: Alanine Aminotransferase 25 U/L (0-40); Anion Gap 11 (12-20); Aspartate Amino Transferase 30 U/L (5-37); Bilirubin Total 0.7 mg/dL (0.0-1.0); Blood Urea Nitrogen 16 mg/dL (9-16); Calcium 8.9 mg/dL (8.4-10.2); Carbon Dioxide 28 mmol/L (22-29); Chloride 105 mmol/L (96-108); Cholesterol 160 mg/dL (<200); Estimated Glomerular Filt Rate > 60; Glucose Fasting 118 mg/dL (60-99); HDL Cholesterol 39 mg/dL (>40); LDL Cholesterol Calculated 53 mg/dL (<100); Potassium 4.5 mmol/L (3.3-5.1); Sodium 139 mmol/L (135-145); Total Protein 6.7 g/dL (6.5-8.0); Triglycerides 343 mg/dL (<150)
[2024-12-13 15:20] LABS: Microalbum/Creatinine Ratio Ur 10.1 ug/mg cr (<30)
[2024-12-13 15:35] LABS: Folate 6.7 ng/mL (> or = 4.0); Vitamin B12 353 pg/mL (200-900)
[2024-12-13 15:36] LABS: Estimated Average Glucose 114 mg/dL; Hemoglobin A1C 139.0669 umol/L; Hemoglobin A1c % 5.6 % (<6.0); Total Hemoglobin (HGBA1C) 3711.2426 umol/L
[2024-12-13 16:24] LABS: Vitamin D 25-OH Total 90.6 ng/mL (>30)
[2024-12-13 18:20] LABS: Alkaline Phosphatase 67 U/L (39-117)
== END 2024-12-13 12:06 | disposition home or self-care (01) ==
LOC: HO.WFDLDS 12:05
PROVIDERS: Visit Provider Nurse Practitioner Family
DX: Z00.01 Encounter for general adult medical examination with abnormal findings (principal); Z23 Encounter for immunization; K46.9 Unspecified abdominal hernia without obstruction or gangrene; H53.8 Other visual disturbances; I25.10 Atherosclerotic heart disease of native coronary artery without angina pectoris; E53.8 Deficiency of other specified B group vitamins; F10.20 Alcohol dependence, uncomplicated; I10 Essential (primary) hypertension; E78.2 Mixed hyperlipidemia; R73.01 Impaired fasting glucose; F33.0 Major depressive disorder, recurrent, mild; G47.33 Obstructive sleep apnea (adult) (pediatric); I73.9 Peripheral vascular disease, unspecified; L40.9 Psoriasis, unspecified; N53.14 Retrograde ejaculation; E78.3 Hyperchylomicronemia; E66.01 Morbid (severe) obesity due to excess calories; Z68.35 Body mass index [BMI] 35.0-35.9, adult; Z95.1 Presence of aortocoronary bypass graft; Z99.89 Dependence on other enabling machines and devices; E55.9 Vitamin D deficiency, unspecified
CPT/HCPCS: 36415; 80053; 80061; 82043; 82306; 82570; 82607; 82746; 83036; 85027; 90471; 90715; 96127

== ENCOUNTER 2025-01-19 14:04 | Outpatient (AMB) | payer OTHER, SELFPAY ==
--- NOTE | 2025-01-19 14:07 | MHC.OFFVIS ---
Vital Signs 01/19/25 14:15 Height 5 ft 10 in Weight 246 lb BMI 35.3 BP 151/76 H Blood Pressure Location Rt brachial Position Sitting Pulse 81 Intake Visit Reasons: Unspecified abdominal hernia Intake Note: Patient referred by Becka PETERS for unspecified abdominal hernia. Reports hernia was first noticed after Emergency diverticulitis surgery 10 yrs ago. Patient c/o: mid abdomen bulge. Denies pain, tenderness. Router Operator Pin Required: No Accompanied by: Self / Same As Patient Allergies cat dander Allergy (Intermediate, Verified 01/19/25 14:13) Sneezing dog dander Allergy (Intermediate, Verified 01/19/25 14:13) Sneezing Seasonal Allergies Allergy (Intermediate, Verified 01/19/25 14:13) Sneezing Medication List - Last Reconciled 01/19/25 by tSoney Garcia MD aspirin 81 mg PO DAILY atorvastatin 80 mg PO DAILY bupropion HCl XL (Wellbutrin XL) 150 mg PO QAM celecoxib (Celebrex) 200 mg PO Q12H PRN 1 month clopidogrel 75 mg PO DAILY coQ10 (ubiquinol) (Qunol Tony CoQ10) 100 mg PO BID fluticasone propionate 50 mcg/actuation (Flonase Allergy Relief) 2 sprays intranasal DAILY isosorbide mononitrate ER 30 mg PO DAILY mecobalamin (vitamin B12) mcg PO metoprolol succinate ER 50 mg PO DAILY omega-3 acid ethyl esters 1 cap PO BID sertraline 100 mg PO DAILY HPI HPI Unspecified abdominal hernia: Details: 64-year-old male referred for a question of an abdominal wall hernia. He states that he had undergone surgery for diverticulitis more than 10 years ago in [facility]. He says that postop, he developed complications requiring a repeat laparotomies. Since that time he therefore has had a hernia on his laparotomy incision. His says that he was unable to have this repaired in the past because of issues including coronary artery disease, arthritis and knee pain, plantar fasciitis He says that this hernia has been increasing in size and he has been wanting to have this repaired. He does have other multiple medical problems including obesity, hyperlipidemia, and EtOH abuse. He has coronary artery disease and had undergone CABG in the past. He has peripheral arterial disease and obstructive sleep apnea. He uses a CPAP. He is on dual antiplatelet therapy. He is following the sales activity manager Dr. Cochran. [facility] Medical History (Updated 01/19/25 @ 14:24 by Stoney Garcia MD) Incisional hernia Stenosis of other cardiac prosthetic devices, implants and grafts, initial encounter Psoriasis Plantar fasciitis Shoulder injury Heart disease High cholesterol High blood pressure Surgical History (Updated 12/13/24 @ 07:48 by Becka Borden, [facility]) History of colonoscopy (~07/2024) H/O angioplasty Status post aorto-coronary artery bypass graft H/O turbinectomy H/O endoscopic sinus surgery H/O nasal septoplasty Family History Mother Ovarian cancer Father High blood pressure High blood cholesterol Cardiovascular disease Unknown High blood pressure High blood cholesterol Cardiovascular disease Social History Housing: House Alcohol intake: current Comment: social Patient Tobacco Use Status: Former Tobacco user e-Cigarette/Vaping Use: Never Used service: No Current occupational status: employed 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 [employer] Cognitive needs: No Hearing needs: No Vision needs: Yes Review of Systems Const Denies chills and Denies fever(s) Card Denies chest pain, Denies dyspnea and Reports dyspnea on exertion Resp Denies cough, Denies dyspnea and Reports dyspnea on exertion GI Denies hematochezia and Denies change in bowel habits Denies hematuria and Denies difficulty urinating Musc Reports back pain, Reports arthralgias and Reports limited range of motion Neuro Denies focal weakness and Denies convulsions Psych Denies depression and Denies mood swings Physical Exam Const General: comfortable and no acute distress Nutritional Appearance: overweight Orientation/consciousness: patient oriented x3 Neck Neck: Yes no lymphadenopathy Resp Auscultation: clear to auscultation bilaterally Cardio Rhythm: regular rhythm GI Other: Long laparotomy scar noted, along with 2 large hernias on the upper part of the abdomen, both reducible Palpation (GI): Soft to palpation, nontender and no guarding Neuro General: patient oriented x3 Assessment & Plan Assessment & Plan (1) Incisional hernia: Code(s): K43.2 - Incisional hernia without obstruction or gangrene Category: Medical Plan: He has what appears to be at least 2 large incisional hernias in the upper abdomen near his laparotomy incision. I am going to order for a CAT scan to define this hernias and allow us to plan for surgical approach. He we will need to be evaluated by his sales activity manager down the line once we schedule him for surgery. I explained to him briefly the technique of repair of his large hernias and I reviewed the risks, benefits, and alternatives He understands the plan We will see him in the office after his CAT scan. Coding Level of Care Code New Pt Level 3 (89785) Diagnoses Incisional hernia K43.2
[2025-01-19 14:15] VITALS: BP 151/76; PULSE 81; BMI 35.3
--- OUTSIDE RECORDS SUMMARY | 2025-01-19 16:38 | XMS_ITS | Data Portability ---
Author Organization [facility] Address [address] [place] [address] Assessment No assessment recorded. Plan of Treatment [...] SNOMED-CT Code Diagnosis ICD10 Code Diagnosis Note [id number] 2099_[facility] [address] [address] 11/13/2017 11:47:20 11/13/2017 13:02:[id number] [place] [address] [address] [address] 07/01/2019 15:10:17 07/01/2019 17:19:[id number] [place] [address] [address] [place] [address] 07/01/2019 17:05:04 07/01/2019 17:21:[id number] [place] [address] [address] [address] 01/18/2019 15:42:44 01/18/2019 16:43:48 [id number] 20994_[facility] [address] [address] 12/15/2020 10:59:24 12/15/2020 11:35:03 Health Concerns Section Related Observation LastModified by Organization Detai ls LastModified Time None Recorded Concern Status LastModified by Organization Details LastModified Time None Recorded Advance Directives Directive None Recorded Payers Insurance Date Sequence Insurance Name Policy Number Policy Mata Covered Member ID Mata Member ID Guarantor Name 10/08/2024 1 [facility] [id number] John Quinn [id number] John Quinn 10/08/2024 1 [facility] [id number] John Quinn [id number] John Quinn
== END 2025-01-19 14:30 | disposition home or self-care (01) ==
LOC: HO.HGS 14:05
PROVIDERS: PCP Nurse Practitioner Family; Visit Provider Surgery
DX: K43.2 Incisional hernia without obstruction or gangrene (principal)
CPT/HCPCS: 99203

== ENCOUNTER 2025-03-06 11:21 | Outpatient (AMB) | payer OTHER, SELFPAY ==
--- NOTE | 2025-03-06 11:22 | A.OFFPC_ITS ---
Vital Signs 3 03/06/25 11:29 Height 5 ft 10 in Weight 235 lb 4 oz BMI 33.8 BP 108/70 Blood Pressure Location Rt brachial Position Sitting Respiration 12 Pulse 77 Pulse Source Pulse Oximeter Temp 97.1 F Temp Source Oral Pulse Oximetry (%) 98 Oxygen Delivery Method Room Air Intake Visit Reasons: [facility]neum[facility] Intake Note: Discharge follow up from [facility] for post pneumonia. Plastic Process Technician Required: No Allergies cat dander Allergy (Intermediate, Verified 03/06/25 11:23) Sneezing dog dander Allergy (Intermediate, Verified 03/06/25 11:23) Sneezing Seasonal Allergies Allergy (Intermediate, Verified 03/06/25 11:23) Sneezing Medication List - Last Reconciled 03/06/25 by Becka Borden, [employer]- amoxicillin-pot clavulanate 875-125 mg 1 tab PO BID aspirin 81 mg PO DAILY atorvastatin 80 mg PO DAILY azithromycin 250 mg PO DAILY baclofen 5 mg PO TID bupropion HCl XL (Wellbutrin XL) 150 mg PO QAM celecoxib (Celebrex) 200 mg PO Q12H PRN 1 month clopidogrel 75 mg PO DAILY coQ10 (ubiquinol) (Qunol Tony CoQ10) 100 mg PO BID fluticasone propionate 50 mcg/actuation (Flonase Allergy Relief) 2 sprays intranasal DAILY mecobalamin (vitamin B12) mcg PO metoprolol succinate ER 50 mg PO DAILY omega-3 acid ethyl esters 1 cap PO BID polyethylene glycol 3350 (Miralax) 17 grams PO DAILY sertraline 100 mg PO DAILY Tobacco use date assessed: 03/06/25 Dental Screening Dental Screen Date: 03/06/25 Did you have a dental visit in the last 12 months?: Yes Did you have a dental problem in the last 6 months where you did not have access to dental care?: No Was dental information given to patient?: Patient has dentist HPI HPI Comments 2 History of Present Illness0 Details 64-year-old male with CAD S/P triple byp ass 2016, psoriasis, plantar fasciatis , MDD, hyperlipidemia, Vit D def, Vit b12 def, IFG, etoh dependence, NAHID on CPAP, seasonal allergies, obesity s/p LAD PCI in 2008. Brachytherapy to ISR of LAD 2002. Circumflex PCI 2006. CABG 2016 Here today for a Transitional Care Management Visit Discharge summary reviewed. Admission Date: 02/27/25 Discharge Date: 02/28/25 Hospital: [facility] Date of interactive contact with Nurse Navigator: as documented in chart Pending diagnostic tests/treatments: NONE Pending consults: NONE DME: NONE PT/OT/LEATHER TOOLER: NO Home Health Aide/HOT MILL WORKER: NO Referrals: NONE Medications reconciled & updated. During todays TCM visit, the d/c summary was reviewed, along with the need for or follow-up on pending diagnostic tests and treatments, as necessary interaction with other health director of managed care who will assume or reassume care of the beneficiary?s system-specific problems was done or is being worked on, education was provided to the beneficiary, family, guardian, and/or caregiver, referrals to establish or re-establish and arrange needed community resources we completed, assistance in scheduling required follow-up with community providers and services & finally updated medication list given to patient/caregiver History of Present Illness - The patient is a 64-year-old male pres enting with community-acquired pneumonia. - Hospitalized for pneumonia diagnosis; discharged with Augmentin and Azithromycin. - Experienced pneumonia complication wit h recurrent hiccups; treated with Reglan and Baclofen . - CT scan showed RML and RLL PNA, multil obar lung involvement; I have advised for repeated imaging in four weeks. - Reported symptoms include breathlessne ss and occasional waking panic due to dyspnea. - Gastrointestinal symptoms pre-admissio n included diarrhea and constipation; was advised to take Metamucil but did not start yet. - completed Zpak; cont on Augmentin. - Overall decreased appetite. Review of Systems - Respiratory: Reports shortness of philip th and cough post-pneumonia. - Gastrointestinal: Reports alternating diarrhea and constipation; denies current abdominal pain. - Neurological: Denies current headache or dizziness, reports waking shortness of breath leading to panic attacks. - General: Reports significant fatigue; denies fever. - ENT: Denies nasal drainage or congesti on. Exam: Awake alert NAD Scleras/conjunctiva clear TM intact bilat, mild congestion bilat L>R Nares patent Pharynx WNL LS CTAB, mildly dim RML and RLL, no cough or dyspnea Mood and affect appropriate Results: See below Plan: CXR on or after 03/31/25 to eval Labs today for hyponatremia Discussion Notes I discussed with the patient the diagnosis of multilobar pneumonia and the importance of completing the prescribed course of antibiotics. The necessity of using an inhaler to assist with breathing difficulties and aid in clearing the lungs was explained. The risks of continued respiratory distress and strategies, including inhaler use, to alleviate symptoms and aid recovery were reviewed. I instructed the patient on the use of the inhaler three times daily and reassured him about expected side effects such as feeling shaky. Follow-up with a chest X- ray a month post-discharge was recommended to ensure resolution of the pneumonia. The need for activity to prevent deconditioning was stressed. Continued monitoring of bowel symptoms was advised, considering the potential effects of antibiotics and medications. Start metamucil; repeat labs to ensure Na+ is WNL. Requesting FMLA. Assessment and Plan 1. Community-Acquired Pneumonia - Complete antibiotics, use inhaler, and schedule follow-up , CXR on or after 03/31/25 to [facility] 2. Recurrent Hiccups - Resolved with Reglan and Baclofen . 3. Hyponatremia - Repeat labs 4. Gastrointestinal Symptoms - Use Metamucil & fu if no improvement 5. FMLA completed Patient Instructions - Take all prescribed antibiotics as dir ected. - Use the inhaler three times daily for help with breathing. - Schedule a chest X-ray around late Mar ust to check lung recovery. - Stay active but rest if feeling short of breath or tired. - Use Metamucil for any bowel changes, a nd call if problems continue or worsen. - Monitor diabetes as discussed. Consent Patient was informed and verbally consented to the use of an ambient scribe for clinic note documentation during this visit. Total time spent caring for the patient today was 69 minutes. This includes time spent before the visit reviewing the chart, time spent during the visit, and time spent after the visit on documentation, reviewing laboratory results, diagnostic imaging, medications, performing a medically necessary evaluation, counseling on diagnoses, care coordination, ordering appropriate tests, ordering appropriate medications, review of tests performed by other providers, reporting test results with the patient, communication with other healthcare providers. [facility] Medical History (Updated 03/06/25 @ 14:38 by Becka Borden, [facility]) Heart disease High blood pressure High cholesterol Incisional hernia Plantar fasciitis Psoriasis Shoulder injury Stenosis of other cardiac prosthetic devices, implants and grafts, initial encounter Surgical History H/O angioplasty H/O endoscopic sinus surgery H/O nasal septoplasty H/O turbinectomy History of colonoscopy (~07/2024) Status post aorto-coronary artery bypass graft Family History Mother Ovarian cancer Father High blood pressure High blood cholesterol Cardiovascular disease Unknown High blood pressure High blood cholesterol Cardiovascular disease Social History Housing: House Alcohol intake: current Comment: social Patient Tobacco Use Status: Former Tobacco user e-Cigarette/Vaping Use: Never Used service: No Current occupational status: employed 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 Cognitive needs: No Hearing needs: No Vision needs: Yes Questionnaire Thrive Questionnaire Date Thrive assessed: 08/22/24 I am a: Patient What is your living situation today?: I choose not to answer this question Within the past 12 months, did the food you bought not last and you didn't have the money to get more?: I choose not to answer this question Within the past 12 months, did you worry whether your food would run out before you got money to buy more?: I choose not to answer this question Do you have trouble paying for medicines?: I choose not to answer this question Do you have trouble getting transportation to medical appointments?: I choose not to answer this question Do you have trouble paying your heating and electricity bill?: I choose not to answer this question Do you have trouble taking care of your child, family member or friend?: I choose not to answer this question Do you have trouble with day-to-day activities such as bathing, preparing meals, shopping, managing finances, etc.?: I choose not to answer this question Are you currently unemployed and looking for a job?: I choose not to answer this question Are you interested in more education?: I choose not to answer this question Please select the resources that you would like help with: None Currently or been in a relationship where the following occur: I choose not to answer THRIVE Score: 0 VEE-7 AMB Questionnaire VEE-7 Date VEE - 7 assessed: 08/22/24 Source: Developed by Drs. Manny Simpson, IsabellaDavid Samaniego and colleagues, with an educational stacie from [employer] Physical exam (Primary Care) Vital Signs: Last Vital Signs Temp 97.1 F 03/06/25 11:29 Pulse 77 03/06/25 11:29 Resp 12 03/06/25 11:29 BP 108/70 03/06/25 11:29 Pulse Ox 98 03/06/25 11:29 Oxygen Delivery Method Room Air 03/06/25 11:29 BMI result Body Mass Index 33.8 Tobacco/Smoking Status: Tobacco use Status Tobacco use date assessed 03/06/25 03/06/25 11:25 Patient Tobacco Use Status Former Tobacco user 03/06/25 11:25 e-Cigarette/Vaping Use Never Used 03/06/25 11:25 Thrive Assessment: Date of Thrive Assessment Date Thrive assessed 08/22/24 03/06/25 11:25 Currently or been in a relationship where the following occur: I choose not to answer Results Reviewed Results Reviewed: Coding Level of Care Code TCM High MDM <= 7 Days Complex EM visit Add On G2211 Diagnoses Hospital discharge follow-up Z09 Community acquired pneumonia of right lung, unspecified part of lung J18.9 Laterality: right Lung location: unspecified part of lung Hyponatremia E87.1 Encounters for administrative purpose Z02.9 CPT Codes [facility] OUTPT/OFFICE VIS - G2212 Assessment & Plan Assessment & Plan (1) Hospital discharge follow-up: Code(s): Z09 - Encounter for follow-up examination after completed treatment for conditions other than malignant neoplasm (2) CAP (community acquired pneumonia): Code(s): J18.9 - Pneumonia, unspecified organism Category: Medical Qualifiers: Laterality: right Lung location: unspecified part of lung Qualified Code(s): J18.9 - Pneumonia, unspecified organism (3) Hyponatremia: Code(s): E87.1 - Hypo-osmolality and hyponatremia Category: Medical (4) Encounters for administrative purpose: Comment: 02/27/25 - 03/12/2025 Return 03/13 with Intermittent leave Code(s): Z02.9 - Encounter for administrative examinations, unspecified Category: Medical Plan . Orders: Orders 2 Electrolytes Today E87.1 - Hypo-osmolality and hyponatremia XR chest 2V 03/31/25 J18.9 - Pneumonia, unspecified organism Medications: New 2 albuterol sulfate 90 mcg/actuation 2 puffs inhalation Q4-6H PRN 8.5 grams 0RF shortness of breath or wheezing 30 days
[2025-03-06 11:29] VITALS: BP 108/70; PULSE 77; RESP 12; TEMP 36.2; O2SAT 98; BMI 33.8
--- OUTSIDE RECORDS SUMMARY | 2025-03-06 12:37 | XMS_ITS | Clinical Summary ---
Author Organization [facility] Address [address] [address] Phone Care Team Providers Care Financial Data Analyst Name Role Phone Unavailable Primary Care Provider Unavailabl e Allergies No known active allergies Active Problems Problem Noted Date Diagnosed Date Seasonal allergic rhinitis 07/09/2009 Overview (09/30/2014): Seasonal allergic rhinitis Hypertensive disorder 07/01/2009 Overview (09/30/2014): Hypertension Hypercholesterolemia 07/01/2009 Overview (09/30/2014): Hypercholesterolemia Gastroesophageal reflux disease 07/01/2009 Overview (09/30/2014): Gastroesophageal reflux disease Uncoded cardiac stents 07/01/2009 Overview (09/30/2014): cardiac stents History of diverticulitis 07/01/2009 Overview (09/30/2014): H/O Diverticulitis Social History Tobacco Use Types Packs/Day Years Used Date Smoking Tobacco: Never Assessed Sex and Gender Information Value Date Recorded Sex Assigned at Not on file Legal Sex Male 6:18 PM EST Gender Identity Not on file Sexual Orientation Not on file Plan of Treatment Not on file Medical Devices Not on file Additional Source Comments The information contained in this document represents components of the legal health record. It is not the complete legal health record.[facility]
--- OUTSIDE RECORDS SUMMARY | 2025-03-06 12:37 | XMS_ITS | Data Portability ---
Author Organization [facility], [address] Address [address] [place] [address] Assessment No assessment recorded. Plan of Treatment [...] SNOMED-CT Code Diagnosis ICD10 Code Diagnosis Note [id number] [address] [place] [address] [address] [address] 11/13/2017 11:47:20 11/13/2017 13:02:[id number] [place] [address] [address] [address] 07/01/2019 15:10:17 07/01/2019 17:19:[id number] [place] [address] [address] [address] 07/01/2019 17:05:04 07/01/2019 17:21:[id number] [place] [address] [address] [address] 01/18/2019 15:42:44 01/18/2019 16:43:48 [id number] [address] [address] [address] 12/15/2020 10:59:24 12/15/2020 11:35:03 Health Concerns Section Related Observation LastModified by Organization Detai ls LastModified Time None Recorded Concern Status LastModified by Organization Details LastModified Time None Recorded Advance Directives Directive None Recorded Payers Insurance Date Sequence Insurance Name Policy Number Policy Mata Covered Member ID Mata Member ID Guarantor Name 10/08/2024 1 [facility] [id number] John Quinn [id number] John Quinn 10/08/2024 1 [facility] [id number] Jhon Quinn [id number] John Quinn
== END 2025-03-06 12:13 | disposition home or self-care (01) ==
LOC: HO.HMCFM 11:21
PROVIDERS: PCP Nurse Practitioner Family; Visit Provider Nurse Practitioner Family
DX: J18.9 Pneumonia, unspecified organism (principal); Z09 Encounter for follow-up examination after completed treatment for conditions other than malignant neoplasm; E87.1 Hypo-osmolality and hyponatremia

== ENCOUNTER 2025-03-08 14:14 | Outpatient (REF) | payer OTHER, SELFPAY ==
--- OUTSIDE RECORDS SUMMARY | 2025-03-08 14:54 | XMS_ITS | Clinical Summary ---
Author Organization [facility] Address [address] [address] Phone Care Team Providers Care Hospitalist Physician Name Role Phone Unavailable Primary Care Provider [...] It is not the complete legal health record.[facility]
[2025-03-08 18:26] LABS: Anion Gap 12 (12-20); Carbon Dioxide 27 mmol/L (22-29); Chloride 106 mmol/L (96-108); Potassium 4.5 mmol/L (3.3-5.1); Sodium 140 mmol/L (135-145)
== END 2025-03-08 14:15 | disposition home or self-care (01) ==
LOC: HO.WFDLDS 14:14
PROVIDERS: Visit Provider Nurse Practitioner Family
DX: E87.1 Hypo-osmolality and hyponatremia (principal)
CPT/HCPCS: 36415; 80051

== ENCOUNTER 2025-03-30 16:14 | Outpatient (REF) | payer OTHER, SELFPAY ==
--- NOTE | ~2025-03-30 | XR_ITS ---
EXAMINATION: XR CHEST CLINICAL INFORMATION: J18.9 - Pneumonia, unspecified organism COMPARISON: None available. TECHNIQUE: 2 views of the chest were obtained. FINDINGS: There are mediastinal wires. Clips are seen in the region of left atrial appendage. Cardiac size is likely enlarged. Lungs are clear. There is no pleural effusion. Disc space narrowing and osteophytes are present in the thoracic spine. There has been resection of the distal right clavicle. XR/XR chest 2V IMPRESSION: Cardiomegaly and changes from prior CABG. Electronically signed by: Giuseppe Rizo MD 03/30/2025 04:43 PM EDT
== END 2025-03-30 16:15 | disposition home or self-care (01) ==
LOC: HO.XRAY 16:14
PROVIDERS: PCP Nurse Practitioner Family; Visit Provider Nurse Practitioner Family
DX: J18.9 Pneumonia, unspecified organism (principal)
CPT/HCPCS: 71046

== ENCOUNTER → 2025-03-30 16:17 | Outpatient (BNV) | payer OTHER, SELFPAY | PROVIDERS: PCP Nurse Practitioner Family; Visit Provider Radiology Diagnostic Radiology | DX: J18.9 Pneumonia, unspecified organism (principal); I51.7 Cardiomegaly | CPT/HCPCS: 71046 ==

== ENCOUNTER 2025-04-12 16:42 | Outpatient (REF) | payer OTHER, SELFPAY ==
--- OUTSIDE RECORDS SUMMARY | 2025-04-12 18:02 | XMS_ITS | Clinical Summary ---
Author Organization [facility] Address [address] [address] Phone Care Team Providers Care Feeder Worker Power Unit Operator Name Role Phone Unavailable Primary Care Provider [...] It is not the complete legal health record.[facility]
== END 2025-04-12 16:43 | disposition home or self-care (01) ==
LOC: HO.CT 16:42
PROVIDERS: Absent Provider Nurse Practitioner Family; PCP Nurse Practitioner Family; Visit Provider Surgery
DX: K43.2 Incisional hernia without obstruction or gangrene (principal)
CPT/HCPCS: 74176

== ENCOUNTER → 2025-04-12 16:44 | Outpatient (BNV) | payer OTHER, SELFPAY | PROVIDERS: Absent Provider Nurse Practitioner Family; PCP Nurse Practitioner Family; Visit Provider Radiology Diagnostic Radiology | DX: K42.9 Umbilical hernia without obstruction or gangrene (principal) | CPT/HCPCS: 74176 ==

== ENCOUNTER 2025-04-17 14:40 | Outpatient (AMB) | payer OTHER, SELFPAY ==
[2025-04-17 14:48] VITALS: BP 134/71; PULSE 71; BMI 34.7
--- NOTE | 2025-04-17 14:48 | A.OFFVIS_ITS ---
Vital Signs 04/17/25 14:48 Height 5 ft 10 in Weight 242 lb BMI 34.7 BP 134/71 Blood Pressure Location Rt brachial Position Sitting Pulse 71 Intake Visit Reasons: Discuss CT abd-pelvis 04-12-25 Intake Note: Patient scheduled this afternoon to discuss Abdomen pelvis CT~ 04-12-2025. Controls Technician Required: No Accompanied by: Spouse Allergies cat dander Allergy (Intermediate, Verified 04/17/25 14:49) Sneezing dog dander Allergy (Intermediate, Verified 04/17/25 14:49) Sneezing Seasonal Allergies Allergy (Intermediate, Verified 04/17/25 14:49) Sneezing Medication List - Last Reconciled 04/17/25 by Stoney Garcia MD albuterol sulfate 90 mcg/actuation 2 puffs inhalation Q4-6H PRN 30 days aspirin 81 mg PO DAILY atorvastatin 80 mg PO DAILY baclofen 5 mg PO TID bupropion HCl XL (Wellbutrin XL) 150 mg PO QAM celecoxib (Celebrex) 200 mg PO Q12H PRN 1 month clopidogrel 75 mg PO DAILY coQ10 (ubiquinol) (Qunol Tony CoQ10) 100 mg PO BID fluticasone propionate 50 mcg/actuation (Flonase Allergy Relief) 2 sprays intranasal DAILY mecobalamin (vitamin B12) mcg PO metoprolol succinate ER 50 mg PO DAILY omega-3 acid ethyl esters 1 cap PO BID polyethylene glycol 3350 (Miralax) 17 grams PO DAILY sertraline 100 mg PO DAILY HPI HPI Discuss CT abd-pelvis 04-12-25: Details: 64-year-old male here for follow-up for incisional hernias. I had seen him last month for this. He states that he had undergone surgery for diverticulitis more than 10 years ago in [facility]. He says that postop, he developed complications requiring a repeat laparotomies. Since that time he therefore has had a hernia on his laparotomy incision. His says that he was unable to have this repaired in the past because of issues including coronary artery disease, arthritis and knee pain, plantar fasciitis He says that this hernia has been increasing in size and he has been wanting to have this repaired. He does have other multiple medical problems including obesity, hyperlipidemia, and EtOH abuse. He has coronary artery disease and had undergone CABG in the past. He has peripheral arterial disease and obstructive sleep apnea. He uses a CPAP. He had his CABG done about 10 years ago. However, he also had angioplasty sometime last year. He is on dual antiplatelet therapy. He is following the watch assembler Dr. Cochran. I had sent him for a CAT scan to define this hernias so he is here to discuss this. [facility] Medical History Incisional hernia Stenosis of other cardiac prosthetic devices, implants and grafts, initial encounter Psoriasis Plantar fasciitis Shoulder injury Heart disease High cholesterol High blood pressure Surgical History History of colonoscopy (~07/2024) H/O angioplasty Status post aorto-coronary artery bypass graft H/O turbinectomy H/O endoscopic sinus surgery H/O nasal septoplasty Family History Mother Ovarian cancer Father High blood pressure High blood cholesterol Cardiovascular disease Unknown High blood pressure High blood cholesterol Cardiovascular disease Social History Housing: House Alcohol intake: current Comment: social Patient Tobacco Use Status: Former Tobacco user e-Cigarette/Vaping Use: Never Used service: No Current occupational status: employed 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 Cognitive needs: No Hearing needs: No Vision needs: Yes Review of Systems Const Denies chills and Denies fever(s) Card Denies chest pain, Denies dyspnea and Denies dyspnea on exertion Resp Denies cough, Denies dyspnea and Denies dyspnea on exertion GI Denies hematochezia and Denies change in bowel habits Denies hematuria and Denies difficulty urinating Musc Denies back pain and Denies limited range of motion Neuro Denies focal weakness and Denies convulsions Psych Denies depression and Denies mood swings Physical Exam Vital Signs: Last Vital Signs Pulse 71 04/17/25 14:48 BP 134/71 04/17/25 14:48 BMI result Body Mass Index 34.7 Const Other: Appears overweight General: comfortable and no acute distress Orientation/consciousness: patient oriented x3 Neck Neck: Yes no lymphadenopathy Resp Auscultation: clear to auscultation bilaterally Cardio Rhythm: regular rhythm GI Other: Reducible incisional hernia above the umbilicus, about 5 cm in diameter Palpation (GI): Soft to palpation, nontender and no guarding Neuro General: patient oriented x3 Assessment & Plan Assessment & Plan (1) Incisional hernia: Code(s): K43.2 - Incisional hernia without obstruction or gangrene Category: Medical Plan: Review of his CAT scan actually shows as he has 2 incisional hernias. One is a large hernia with a defect about 5 cm with some bowel loops. This has reducible. His CAT scan shows another hernia, fat containing above this large 1, with a fascial defect measuring about 2 cm. Both of these hernias appeared to be reducible I had a long discussion with the about the technique of repair of these 2 hernias. I explained the risks including but not limited to bleeding, infections, bowel injury, recurrence, postop pain, UT, as well as the benefits and alternatives. I explained to him what to expect postoperatively. He may need to be admitted overnight for pain control He will need to be seen preoperatively by his watch assembler Dr. Cochran because of his coronary artery disease. He is to stop his Plavix for 5 days prior to this surgery He seems to understand the plan above. His has also with him during the visit. Coding Level of Care Code Est Pt Level 4 (38597) Diagnoses Incisional hernia K43.2
--- OUTSIDE RECORDS SUMMARY | 2025-04-17 17:01 | XMS_ITS | Clinical Summary ---
Author Organization [facility] Address [address] [address] Phone Care Team Providers Care Wholesale And Retail Merchant Name Role Phone Unavailable Primary Care Provider [...] It is not the complete legal health record.[facility]
== END 2025-04-17 15:05 | disposition home or self-care (01) ==
LOC: HO.HGS 14:41
PROVIDERS: PCP Nurse Practitioner Family; Visit Provider Surgery
DX: K43.2 Incisional hernia without obstruction or gangrene (principal)
CPT/HCPCS: 99214

== ENCOUNTER 2025-05-16 09:32 | Outpatient (AMB) | payer OTHER, SELFPAY ==
--- NOTE | 2025-05-16 09:34 | A.OFFVIS_ITS ---
Vital Signs 05/16/25 09:37 Height 5 ft 10 in Weight 239 lb 6.752 oz BMI 34.3 BP 120/66 Blood Pressure Location Rt brachial Position Sitting Pulse 70 Pulse Source Monitor Intake Visit Reasons: [address] Garcia pre-op Outside Parts Sales Required: No Accompanied by: Spouse Allergies cat dander Allergy (Intermediate, Verified 04/17/25 14:49) Sneezing dog dander Allergy (Intermediate, Verified 04/17/25 14:49) Sneezing Seasonal Allergies Allergy (Intermediate, Verified 04/17/25 14:49) Sneezing Medication List - Last Reconciled 05/16/25 by Efrain Cochran MD albuterol sulfate 90 mcg/actuation 2 puffs inhalation Q4-6H PRN 30 days aspirin 81 mg PO DAILY atorvastatin 80 mg PO DAILY bupropion HCl XL (Wellbutrin XL) 150 mg PO QAM celecoxib (Celebrex) 200 mg PO Q12H PRN 1 month clopidogrel 75 mg PO DAILY coQ10 (ubiquinol) (Qunol Tony CoQ10) 100 mg PO BID isosorbide mononitrate ER 30 mg PO DAILY mecobalamin (vitamin B12) mcg PO metoprolol succinate ER 50 mg PO DAILY omega-3 acid ethyl esters 1 cap PO BID sertraline 100 mg PO DAILY HPI Comments Details: John returns for follow-up of coronary disease and he also needs preoperative stratification for hernia surgery. He has a long history of coronary artery disease going back more than 20 years. H/O PCI with bare metal stent to LAD 1998. Subsequently InStent restenosis of LAD in 2002 treated by brachytherapy. Then drug-eluting stent to circumflex in 2006. One further LAD stent in 2008. Then he had CABG x3 in 2015, indication being acute occlusion of his coronary stent. Last cardiac catheterization was in 2023 when he underwent PCI to circumflex. Since last seen, he has seems to be fine for the most part. No angina whatsoever. He can walk, climb stairs extra without any chest pains. Otherwise, getting around okay. [facility] Medical History Incisional hernia Stenosis of other cardiac prosthetic devices, implants and grafts, initial encounter Psoriasis Plantar fasciitis Shoulder injury Heart disease High cholesterol High blood pressure Surgical History History of colonoscopy (~07/2024) H/O angioplasty Status post aorto-coronary artery bypass graft H/O turbinectomy H/O endoscopic sinus surgery H/O nasal septoplasty Family History Mother Ovarian cancer Father High blood pressure High blood cholesterol Cardiovascular disease Unknown High blood pressure High blood cholesterol Cardiovascular disease Social History Housing: House Alcohol intake: current Comment: social Patient Tobacco Use Status: Former Tobacco user e-Cigarette/Vaping Use: Never Used service: No Current occupational status: employed 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 Cognitive needs: No Hearing needs: No Vision needs: Yes Review of Systems Const Denies chills, Denies fatigue, Denies fever(s), Denies frequent falls, Denies weakness, Denies weight gain and Denies weight loss ENT Denies dizziness Card Denies chest pain, Denies leg edema, Denies lightheadedness, Denies palpitations, Denies dyspnea and Denies dyspnea on exertion Resp Denies cough, Denies dyspnea and Denies dyspnea on exertion GI Denies hematochezia Musc Denies abnormal gait, Denies muscle weakness, Denies numbness, Denies radiating pain into limb and Denies tingling Neuro Denies abnormal gait, Denies dizziness, Denies frequent falls, Denies numbness, Denies tingling and Denies weakness Endo Denies fatigue and Denies palpitations Physical Exam Vital Signs: Last Vital Signs Pulse 70 05/16/25 09:37 BP 120/66 05/16/25 09:37 BMI result Body Mass Index 34.3 Const General: comfortable and no acute distress Orientation/consciousness: patient oriented x3 HEENT Other: Unremarkable Head: Yes normal to inspection Neck Neck: Yes normal visual inspection Chest Chest palpation & inspection: normal inspection of the chest Resp Auscultation: clear to auscultation bilaterally Cardio Palpation: normal PMI Heart sounds: S1 normal heart sound present, S2 normal heart sound present, no gallops, no murmurs and no rubs GI Palpation (GI): Soft to palpation Back/Spine/Pelvis Other: unremarkable Skin General skin exam: no rashes or lesions noted Neuro General: patient oriented x3 Extrem General: Yes normal to inspection Psych Mental Status: mental status grossly normal Office Procedures EKG Details: EKG with underlying sinus rhythm at 70/Min; downsloping STs with T inversion in lead one and aVL and slight ST elevation in lead 3 AVF; old septal infarct. Overall, similar to prior. [id number], Complete Assessment & Plan Assessment & Plan (1) Atherosclerotic cardiovascular disease: Code(s): I25.10 - Atherosclerotic heart disease of [place] coronary artery without angina pectoris Category: Medical (2) Status post aorto-coronary artery bypass graft: Code(s): Z95.1 - Presence of aortocoronary bypass graft Category: Surgical (3) Preoperative cardiovascular examination: Code(s): Z01.810 - Encounter for preprocedural cardiovascular examination Category: Medical Plan History of LAD PCI in 1998, 2008. Brachytherapy to ISR of LAD 2002. Circumflex PCI 2006. CABG 2015. Echocardiogram from 2015 with LVEF of 55-60%. Basal to mid inferolateral hypokinesis. In a more recent study from 2023, LVEF stated to be 60-65%; moderate diastolic dysfunction; basal inferior hypokinesis. No significant valvular issues. Myocardial perfusion imaging study from 2023 with ischemia in the basal lateral wall; mixed ischemia/infarct pattern in the basal to mid inferolateral wall. Gated LVEF 42% during stress and 47% during rest. In the cardiac catheterization from 06/2024, findings include- PLV with 70% proximal stenosis; vein graft to OM/diagonal occluded. Patent MEJIA to LAD with mid LAD occlusion. Severe circumflex OM stenosis status post angioplasty. Prior carotid ultrasound- 1-49% stenosis in the right internal carotid artery. No stenosis in the left internal carotid artery. Overall, multivessel coronary disease with multiple prior PCI as well as CABG, but stable without any angina. He can continue the current medication of antiplatelet drugs, beta-blockers and statins. With regard to the question of hernia surgery, discussed this with Dr. Cobb who reviewed the last angiogram again. Unless there is any angina or new cardiac concerns, he felt that patient could proceed with the hernia surgery at intermediate cardiac risk. Discussed about this with the patient as well as and they understand the implications. Specifically discussed about the risk of perioperative myocardial infarction and the fact that this risk isn't modifiable. He is willing to proceed with the stated risk. With regard to Plavix, may hold as necessary for the procedure. Continue aspirin without interruption. We will see him back in about 6 months' time. Coding Level of Care Code Est Pt Level 4 (96070) Complex EM visit Add On G2211 Diagnoses Atherosclerotic cardiovascular disease I25.10 Status post aorto-coronary artery bypass graft Z95.1 Preoperative cardiovascular examination Z01.810 CPT Codes EKG - CPT: 53096-[id number], Complete ([id number])
[2025-05-16 09:37] VITALS: BP 120/66; PULSE 70; BMI 34.3
--- OUTSIDE RECORDS SUMMARY | 2025-05-16 10:49 | XMS_ITS | Clinical Summary ---
Author Organization [facility] Address [address] [address] Phone Care Team Providers Care Design Project Manager Name Role Phone Unavailable Primary Care Provider [...] It is not the complete legal health record.[facility]
== END 2025-05-16 10:21 | disposition home or self-care (01) ==
LOC: HO.HCS 09:33
PROVIDERS: PCP Nurse Practitioner Family; Visit Provider Internal Medicine
DX: I25.10 Atherosclerotic heart disease of native coronary artery without angina pectoris (principal); Z95.1 Presence of aortocoronary bypass graft; Z01.810 Encounter for preprocedural cardiovascular examination
CPT/HCPCS: 93010; 99214

== ENCOUNTER → 2025-05-16 09:32 | Outpatient (BNVA) | payer OTHER, SELFPAY | PROVIDERS: PCP Nurse Practitioner Family; Visit Provider Internal Medicine | DX: I25.10 Atherosclerotic heart disease of native coronary artery without angina pectoris (principal) | CPT/HCPCS: 93005 ==

== ENCOUNTER 2025-06-09 10:36 | Inpatient (IN) | payer OTHER, SELFPAY ==
[2025-06-02 10:11] VITALS: BP 132/79; PULSE 61; RESP 16; O2SAT 98; BMI 34.3
--- NOTE | 2025-06-02 10:34 | HO.ANESPROP2 ---
Documented by User: Kelley Pandya NP 06/06/25 14:32 HPI - Anesthesia Eval Consult details Narrative: 65yo M for Multiple Repair of Hernia Incisional Reducible, 06/09/25 No recent illness - [facility] admit 11/2024 with pna, CXR 03/2025 lungs clear No CP/SOB with house maintenance Cardiac optimized - rec's to hold plavix and continue asa periop. Follows [facility] [place] Cardiology for: CAD c/b multiple LA's and s/p LAD stent 1998, in stent stenosis 2002, circumflex stent 2006, LAD stent 2008, CABG x 3 2015, PCI to circumflex 2023. Pt reports an LA occurred immediately postop shoulder surgery ~2013. NAHID with CPAP QHS [facility] Active Problems Active Problems: All Active Problems Preoperative cardiovascular examination (Acute) Encounters for administrative purpose (Acute) Hyponatremia (Acute) CAP (community acquired pneumonia) (Acute) Encounter for general adult medical examination with abnormal findings (Acute ~12/2024) Blurred vision (Acute) Hernia (Acute) Need for Tdap vaccination (Acute) History of deviated nasal septum (Acute) Nasal sinus congestion (Acute) Difficulty walking (Acute) Fatigue due to sleep pattern disturbance (Acute) Loud snoring (Acute) Lumbar muscle pain (Acute) Retrograde ejaculation (Acute) Right low back pain (Acute) Back pain (Acute) EtOH dependence (Acute) Hypertriglyceridemia, sporadic (Acute) BMI 35.0-35.9,adult (Acute) Severe obesity (BMI 35.0-35.9 with comorbidity) (Acute) Atherosclerotic cardiovascular disease (Acute) Right knee pain (Acute) PAD (peripheral artery disease) (Acute) Fasciculations of muscle (Acute) NAHID on CPAP (Acute) Screening for colon cancer (Acute) Vitamin D deficiency (Acute) IFG (impaired fasting glucose) (Acute) MDD (major depressive disorder), recurrent episode (Acute) Prostate cancer screening (Acute) B12 deficiency (Acute) Hyperlipidemia (Acute) Incisional hernia (Acute) Status post aorto-coronary artery bypass graft (Acute) High blood pressure (Acute) Psoriasis (Acute) Past Medical History Medical History History of pneumonia (11/2024) Back pain History of blood transfusion Hx of diverticulitis of colon (~2014) Dry eye Environmental allergies Seasonal allergies NAHID on CPAP CAD (coronary artery disease) Hx of myocardial infarction (~2013) Incisional hernia Stenosis of other cardiac prosthetic devices, implants and grafts, initial encounter Psoriasis Plantar fasciitis Shoulder injury Heart disease High cholesterol High blood pressure Family History Family History Mother Ovarian cancer Father High blood pressure High blood cholesterol Cardiovascular disease Unknown High blood pressure High blood cholesterol Cardiovascular disease Family history of problems with anesthesia: No Surgical History Surgical History H/O heart artery stent Hx of repair of left rotator cuff (~2013) History of colon resection (~2014) History of laparotomy (~2014) Hx of coronary artery bypass graft (2015) History of colonoscopy (~07/2024) H/O angioplasty Status post aorto-coronary artery bypass graft H/O turbinectomy H/O endoscopic sinus surgery H/O nasal septoplasty History of Problems with Anesthesia: No Social History Social History Housing: House Are you a primary healthcare network pricing consultant to a significant other at home: No Do you presently have visiting nurse or other home services: No Alcohol intake: current Comment: social Patient Tobacco Use Status: Former Tobacco user Tobacco use type: Cigarette e-Cigarette/Vaping Use: Never Used Use of substances other than those prescribed or required for medical reasons: No Have you been hit, kicked, punched, or otherwise hurt by someone within the past year? 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 Cognitive needs: No Hearing needs: No Vision needs: Yes Meds Allergies Allergy/AdvReac Type Severity Reaction Status Date / Time cat dander Allergy Intermediate Sneezing Verified 06/09/25 06:16 dog dander Allergy Intermediate Sneezing Verified 06/09/25 06:16 Seasonal Allergies Allergy Intermediate Sneezing Verified 06/09/25 06:16 Home Medications ?Medication ?Instructions ?Recorded ?Confirmed ?Last Taken ?Type aspirin 81 mg tablet,delayed 81 mg PO .DAILY@1700 10/14/23 06/09/25 06/07/25 History release mecobalamin (vitamin B12) 2,500 2,500 mcg PO .DAILY@169910/14/23 06/09/25 Unknown History mcg chewable tablet coQ10 (ubiquinol) 100 mg capsule 100 mg PO .DAILY@169901/05/24 06/09/25 Unknown History (Qunol Tony CoQ10) isosorbide mononitrate 30 mg 30 mg PO .DAILY@169905/16/25 06/09/25 Unknown History tablet,extended release 24 hr atorvastatin 80 mg tablet 80 mg PO .DAILY@169906/02/25 06/09/25 Unknown History bupropion HCl 150 mg 24 hr tablet, 150 mg PO .DAILY@169906/02/25 06/09/25 Unknown History extended release (Wellbutrin XL) clopidogrel 75 mg tablet 75 mg PO .DAILY@169906/02/25 06/09/25 06/03/25 History fluticasone propionate 50 2 spray intranasal DAILY PRN 06/02/25 06/09/25 Unknown History mcg/actuation nasal Allergy Symptoms spray,suspension (Flonase Allergy Relief) metoprolol succinate 50 mg 50 mg PO .DAILY@169906/02/25 06/09/25 Unknown History tablet,extended release 24 hr omega-3 acid ethyl esters 1 gram 1 cap PO .DAILY@169906/02/25 06/09/25 06/03/25 History capsule peg 400-propylene glycol (PF) 0.4 1 drp ophthalmic (eye) 6XD PRN Dry 06/02/25 06/09/25 Unknown History %-0.3 % eye drops in a dropperette Eye(S) (Systane (PF)) sertraline 100 mg tablet 100 mg PO .DAILY@169906/02/25 06/09/25 Unknown History Exam Height,Weight and Vital Signs: Height 5 ft 10 in Weight 108.409 kg Last Vital Signs Pulse 61 06/02/25 10:11 Resp 16 06/02/25 10:11 BP 132/79 06/02/25 10:11 Pulse Ox 98 06/02/25 10:11 O2 Del Method Room Air 06/02/25 10:11 Pertinent Lab Results Pertinent Lab Results: Laboratory Tests 12/13/24 03/08/25 12:09 14:16 WBC 7.2 Hgb 14.1 Hct 40.3 L Plt Count 163 Sodium 140 Potassium 4.5 Chloride 106 Carbon Dioxide 27 BUN 16 Creatinine 0.80 Narrative Narrative: EKG 05/2025 Details: EKG with underlying sinus rhythm at 70/Min; downsloping STs with T inversion in lead one and aVL and slight ST elevation in lead 3 AVF; old septal infarct. Overall, similar to prior. ECHO 2023 Conclusions: - 1. Technically limited study 2. Normal LV ejection fraction of 60-65% with grade 2 diastolic dysfunction 3. Normal cardiac valvular Doppler 4. Upper limits of normal ascending aortic size at 3.5 cm Cardiac Cath 06/2024 Hemodynamics: Normal systemic pressures. Mildly elevated LVEDP. There is no gradient across aortic valve pullback. Coronary anatomy: Right dominant circulation. PLV is a moderate-sized vessel and has 70% stenosis proximally. Vein graft to OM and diagonal are occluded. Severe circumflex OM stenosis. Patent MEJIA to LAD with mid LAD occlusion. Diagnostic Recommendations PCI to circumflex. Interventional Summary Pullback to circumflex OM performed. Please see narrative for further detail. Very complex procedure with heavy calcification in the proximal circumflex as well as tortuosity. We were unable to advance a stent and decided to conclude the procedure with balloon angioplasty only result. Interventional Recommendations Continue aspirin 81 mg indefinitely. Continue clopidogrel therapy for at least 12 month(s) post-PCI. Aggressive secondary risk factor modification according to ATP III guidelines. Referral for cardiac rehabilitation. Airway Mallampati Class: II TM Dist: <=3cm Neck ROM: Full Loose/Missing/Broken Teeth: Yes (Broken molars) Heart: RRR Lungs: CTAB Assessment and Plan Assessment Anesthesia Assessment: Anesthesia Plan Discussed and PAT Visit Final Anesthetic Review Family History of Problems with Anesthesia: No History of Problems with Anesthesia: No Documented by User: Francis Rodríguez MD 06/09/25 07:54 [facility] Past Medical History Medical History History of pneumonia (11/2024) Back pain History of blood transfusion Hx of diverticulitis of colon (~2014) Dry eye Environmental allergies Seasonal allergies NAHID on CPAP CAD (coronary artery disease) Hx of myocardial infarction (~2013) Incisional hernia Stenosis of other cardiac prosthetic devices, implants and grafts, initial encounter Psoriasis Plantar fasciitis Shoulder injury Heart disease High cholesterol High blood pressure Family History Family History Mother Ovarian cancer Father High blood pressure High blood cholesterol Cardiovascular disease Unknown High blood pressure High blood cholesterol Cardiovascular disease Surgical History Surgical History H/O heart artery stent Hx of repair of left rotator cuff (~2013) History of colon resection (~2014) History of laparotomy (~2014) Hx of coronary artery bypass graft (2015) History of colonoscopy (~07/2024) H/O angioplasty Status post aorto-coronary artery bypass graft H/O turbinectomy H/O endoscopic sinus surgery H/O nasal septoplasty Social History Social History Housing: House Are you a primary healthcare network pricing consultant to a significant other at home: No Do you presently have visiting nurse or other home services: No Alcohol intake: current Comment: social Patient Tobacco Use Status: Former Tobacco user Tobacco use type: Cigarette e-Cigarette/Vaping Use: Never Used Use of substances other than those prescribed or required for medical reasons: No Have you been hit, kicked, punched, or otherwise hurt by someone within the past year? 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 Cognitive needs: No Hearing needs: No Vision needs: Yes Meds Allergies Allergy/AdvReac Type Severity Reaction Status Date / Time cat dander Allergy Intermediate Sneezing Verified 06/09/25 06:16 dog dander Allergy Intermediate Sneezing Verified 06/09/25 06:16 Seasonal Allergies Allergy Intermediate Sneezing Verified 06/09/25 06:16 Home Medications ?Medication ?Instructions ?Recorded ?Confirmed ?Last Taken ?Type aspirin 81 mg tablet,delayed 81 mg PO .DAILY@1700 10/14/23 06/09/25 06/07/25 History release mecobalamin (vitamin B12) 2,500 2,500 mcg PO .DAILY@17010/14/23 06/09/25 Unknown History mcg chewable tablet coQ10 (ubiquinol) 100 mg capsule 100 mg PO .DAILY@17001/05/24 06/09/25 Unknown History (Qunol Tony CoQ10) isosorbide mononitrate 30 mg 30 mg PO .DAILY@17005/16/25 06/09/25 Unknown History tablet,extended release 24 hr atorvastatin 80 mg tablet 80 mg PO .DAILY@17006/02/25 06/09/25 Unknown History bupropion HCl 150 mg 24 hr tablet, 150 mg PO .DAILY@169906/02/25 06/09/25 Unknown History extended release (Wellbutrin XL) clopidogrel 75 mg tablet 75 mg PO .DAILY@169906/02/25 06/09/25 06/03/25 History fluticasone propionate 50 2 spray intranasal DAILY PRN 06/02/25 06/09/25 Unknown History mcg/actuation nasal Allergy Symptoms spray,suspension (Flonase Allergy Relief) metoprolol succinate 50 mg 50 mg PO .DAILY@169906/02/25 06/09/25 Unknown History tablet,extended release 24 hr omega-3 acid ethyl esters 1 gram 1 cap PO .DAILY@169906/02/25 06/09/25 06/03/25 History capsule peg 400-propylene glycol (PF) 0.4 1 drp ophthalmic (eye) 6XD PRN Dry 06/02/25 06/09/25 Unknown History %-0.3 % eye drops in a dropperette Eye(S) (Systane (PF)) sertraline 100 mg tablet 100 mg PO .DAILY@169906/02/25 06/09/25 Unknown History Exam Exam Date and Time: 06/09/25 Assessment and Plan Final Anesthetic Review NPO: Yes ASA Class: III Final Preanesthetic Review: No Changes in Pt Med Stat, Meds/Allgs Chart Reviewed, Consent Obtained/Reviewed and Anes Risks/Benef Reviewed Patient Risk: Intermediate Procedure Risk: Low Anesthetic Plan Anesthetic Plan: GA Disposition: Standard PACU
[2025-06-09] VITALS (15 sets, daily range): BP systolic 113–149; BP diastolic 66–82; PULSE 62–81; RESP 11–18; TEMP 36.6–37.2; O2SAT 93–98; BMI 34.1
[2025-06-09] MEDS: Lactated Ringers 1,000 ML 100 ML IVCONT ×2 (06:28→13:22)
--- NOTE | 2025-06-09 07:10 | MHC.SHP ---
Pre-Procedural Eval Section A - 24 Hr Update-Section A only Date of Service: 06/09/25 Section B - Complete if H&P > 30 days Chief Complaint: Incisional hernia without obstruction or gangrene Details of Present Illness: Has a large incisional hernia, previous laparotomies after complicated diverticulitis Relevant Family History (Specify if Yes): No Relevant Social History: None Present Medications: see Short Stay Collaborative assessment Medical History: Significant History (High BMI, peripheral artery disease, history of CABG, hyperlipidemia) History of Previous Operations: Relevant previous surgery/procedure and date(s) Allergies: Allergies Allergy/AdvReac Type Severity Reaction Status Date / Time cat dander Allergy Intermediate Sneezing Verified 06/09/25 06:16 dog dander Allergy Intermediate Sneezing Verified 06/09/25 06:16 Seasonal Allergies Allergy Intermediate Sneezing Verified 06/09/25 06:16 Review of Systems Sugical H&P ROS: Negative: Constitution, Cardiovascular, Respiratory and Gastrointestinal Exam Surgical H&P Exam: Normal: Heart and Normal: Lungs and Significant Findings: Abdomen (Large midline incisional hernia) Plan I have reviewed the history and physical and performed a pertinent physical examination on my patient. No changes have occurred unless specified. Time Spent With Patient Time: Total time managing care of this patient today ____ minutes.
--- NOTE | 2025-06-09 09:35 | P.OP_ITS ---
Operative Note Operative Note Date of Service: 06/09/25 Narrative: Preop diagnosis: Multiple incisional hernias Postop diagnosis: Multiple incisional hernias; largest hernia in the midline measure about 6 cm across; 2nd hernia superior to this was about 2.5 cm Two other smaller hernias each about 1.5 cm on each side Extensive adhesions Procedure: Repair of multiple incisional hernias with large Ventrio mesh, 11 x 14 cm, with extensive lysis of adhesions Surgeon: Stoney Garcia MD college sports assistant: ARGENTINA Vieira The patient is a 65-year-old male who had undergone a complicated colon surgery for diverticulitis about 10 years ago in [facility]. He said he had a re- exploration 3 days after that He had developed a hernia which continued to increase in size of the years. He was seen in the office and he wanted to proceed with repair. His CAT scan has been reviewed and this had shown multiple hernias bowel loops. He understood the technique of the planned procedure as well as the risks, benefits, and alternatives He was brought to the operating room and placed supine under general anesthesia via endotracheal tube. The abdomen was prepped and draped in the usual sterile fashion. A surgical time-out was done. The patient received cefazolin 2 g IV preoperatively I made a midline incision lying the palpable hernia above the umbilicus with a blade 15.. This carried down gently through the full-thickness of the skin and subcutaneous fat until hernia contents were visualized. I proceeded to then sharply dissect these hernia contents off of the subcutaneous tissue. There was note of a lot of adhesions surrounding these hernia contents towards the entire subcutaneous layer as well as the fascia. We had to do careful dissection with the Metzenbaum scissors electrocautery in a mm by mm fashion because of the presence of bowel loops. This part of the procedure took an extended period of time. Eventually, we are able to visualize fascia. We carefully dissected the fascial defect off of the hernia contents. Again, there was note of dense adhesions tethering bowel loops to the fascial edges so we had to do careful dissection until we are able to completely reduce all these hernia contents Omentum as well as small bowel loops were also adherent on the underside of the abdominal wall on all sides of the fascial defect so we had to do careful dissection as well to achieve adequate margins. There was note of a mesh inferior to the midline incision in the area of the umbilicus caudally We also had to control oozing areas in the divided omentum with Polysorb 2-0 ties. We irrigated and observed all visible bowel loops. There was no evidence of any bowel injury Once we had achieved extensive lysis of adhesions, as able to visualize multiple hernia defects. The biggest 1 was about 6 cm. Superior to this was another hernia about 0.5 cm containing fat. There was an intervening narrow fascial band between the 2 of this which I divided There was note of a smaller hernia on each side of the fascial defect measuring about 1 cm in size. Both of these were also with an intervening narrow band of fascia which we divided as well. We therefore connected all these defects and created 1 defect The aggregate size of the defect was 11 cm by 6 cm I chose a 14 x 11 cm Ventrio mesh which we had to have adequate coverage as the midline came together without any difficulty I secured 4 quadrants of the eventually mesh with trans fascial Prolene 2-0 sutures. This was then pulled up to cover the entire defect in a parachute type fashion. We then proceeded to apply a circumferential row of absorbable up to fix tack on the Prolene side of the Ventrio mesh to the abdominal wall. We placed additional tacks to make sure that there were no significant gaps between the abdominal wall and the large mesh. I made sure that we had direct visualization while applying the tacks to make sure that there were no bowel loops caught between the mesh and the abdominal wall We then irrigated. I closed the large fascial defect with a running Maxon 1 stitch Hemostasis had been confirmed prior to closure . We irrigated the subcutaneous layer and closed the skin with skin shannon. I infiltrated the subcutaneous layer with Marcaine 0.5% for postop analgesia. Dressings were applied and the procedure was completed The patient tolerated the procedure well. There were no immediate complications. Initial final counts of sponges and instruments were correct. Estimated blood loss about 75 cc The patient is extubated without difficulty and transferred to the recovery room with stable vital signs. The patient is being admitted postop for pain management.
--- NOTE | 2025-06-09 11:51 | P.CONHOSP_ITS ---
History of Present Illness Data of Consult Service Date: 06/09/25 Requesting physician: Last [place] Primary Care Provider: Becka Borden [facility] HPI Reason for consult: medical management This is a 65-year-old male with a history of coronary artery disease who presented for elective hernia repair. He underwent repair of multiple incisional hernias with mesh with extensive lysis of adhesions. The hospitalist service was asked to see him in consultation for medical management. Patient was seen in his room following surgery and was awake, alert with adequate pain control. Denies sob, chest pain at this time. Review of Systems Review of Systems: Yes all other systems are reviewed and are negative Constitutional: Constitutional: Denies chills and Denies fever(s) Cardiovascular: Cardiovascular: Denies chest pain, Denies palpitations and Denies dyspnea Respiratory: Respiratory: Denies cough and Denies dyspnea Gastrointestinal: Gastrointestinal: Reports abdominal pain, Denies nausea and Denies vomiting Endocrine: Endocrine: Denies palpitations [facility] Medical History History of pneumonia (11/2024) Back pain History of blood transfusion Hx of diverticulitis of colon (~2014) Dry eye Environmental allergies Seasonal allergies NAHID on CPAP CAD (coronary artery disease) Hx of myocardial infarction (~2013) Incisional hernia Stenosis of other cardiac prosthetic devices, implants and grafts, initial encounter Psoriasis Plantar fasciitis Shoulder injury Heart disease High cholesterol High blood pressure Family History Mother Ovarian cancer Father High blood pressure High blood cholesterol Cardiovascular disease Unknown High blood pressure High blood cholesterol Cardiovascular disease Surgical History H/O heart artery stent Hx of repair of left rotator cuff (~2013) History of colon resection (~2014) History of laparotomy (~2014) Hx of coronary artery bypass graft (2015) History of colonoscopy (~07/2024) H/O angioplasty Status post aorto-coronary artery bypass graft H/O turbinectomy H/O endoscopic sinus surgery H/O nasal septoplasty Social History Housing: House Are you a primary hospice spiritual care coordinator to a significant other at home: No Do you presently have visiting nurse or other home services: No Alcohol intake: current Comment: social Patient Tobacco Use Status: Former Tobacco user Tobacco use type: Cigarette e-Cigarette/Vaping Use: Never Used Use of substances other than those prescribed or required for medical reasons: No Have you been hit, kicked, punched, or otherwise hurt by someone within the past year? 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 Cognitive needs: No Hearing needs: No Vision needs: Yes Meds Allergies Allergy/AdvReac Type Severity Reaction Status Date / Time cat dander Allergy Intermediate Sneezing Verified 06/09/25 06:16 dog dander Allergy Intermediate Sneezing Verified 06/09/25 06:16 Seasonal Allergies Allergy Intermediate Sneezing Verified 06/09/25 06:16 Active Medications: Current Medications Acetaminophen (Acetaminophen 325 Mg Tablet) 650 mg PO Q6H PRN PRN Reason: Pain, Mild 1-3,fever,headache Aspirin (Aspirin Enteric Coated 81 Mg Tablet.Dr) 81 mg PO DAILY@1700 [facility] Atorvastatin Calcium (Atorvastatin Calcium 80 Mg Tablet) 80 mg PO DAILY@1700 [facility] Bupropion HCl (Bupropion Hcl Xl 150 Mg Tab.Er.24h) 150 mg PO DAILY@1700 [facility] Calcium Carbonate (Calcium Carbonate 750 Mg Tab.Chew) 750 mg PO Q4H PRN PRN Reason: Heartburn Fluticasone Propionate (Fluticasone Propionate Nasal 16 Gm [place]) 2 spray NOSTRIL-B DAILY PRN PRN Reason: Allergy Symptoms Heparin Sodium (Porcine) (Heparin Sodium,Porcine 5,000 Unit/Ml Vial) 5,000 unit SUBCUT Q8H [facility] Lactated Ringer's (Lr) 1,000 mls @ 100 mls/hr IVCONT .Q10H [facility] Last Admin: 06/09/25 06:28 Dose: 100 mls/hr Acetaminophen (Ofirmev) 1,000 mg in 100 mls @ 400 mls/hr IV Q6H [facility] Isosorbide Mononitrate (Isosorbide Mononitrate 30 Mg Tab.Er.24h) 30 mg PO DAILY@1700 [facility]; Protocol Melatonin (Melatonin 3 Mg Tablet) 6 mg PO BEDTIME PRN PRN Reason: Insomnia Metoprolol Succinate (Metoprolol Succinate Er 50 Mg Tab.Er.24h) 50 mg PO DAILY@1700 [facility]; Protocol Morphine Sulfate (Morphine Sulfate 4 Mg/Ml Cartridge) 4 mg IVPUSH Q4H PRN; Protocol PRN Reason: Pain, Severe (Pain Scale 7-10) Ondansetron HCl (Ondansetron Hcl 4 Mg/2 Ml Vial) 4 mg IVPUSH Q6H PRN PRN Reason: Nausea and Vomiting Oxycodone HCl (Oxycodone Hcl Immed Release 5 Mg Tablet) 5 mg PO Q4H PRN PRN Reason: Pain, Moderate(Pain Scale 4-6) Sertraline HCl (Sertraline Hcl 100 Mg Tablet) 100 mg PO DAILY@1700 [facility] Sodium Chloride (0.9 % Sodium Chloride Flush 3 Ml Syringe) 3 ml IVFLUSH [facility] Last Admin: 06/09/25 11:34 Dose: Not Given Home Medications ?Medication ?Instructions ?Recorded ?Confirmed ?Last Taken ?Type aspirin 81 mg tablet,delayed 81 mg PO .DAILY@01/3106/09/25 06/07/25 History release mecobalamin (vitamin B12) 2,500 2,500 mcg PO .DAILY@10/14/23 06/09/25 Unknown History mcg chewable tablet coQ10 (ubiquinol) 100 mg capsule 100 mg PO .DAILY@169901/05/24 06/09/25 Unknown History (Qunol Tony CoQ10) isosorbide mononitrate 30 mg 30 mg PO .DAILY@03/0306/09/25 Unknown History tablet,extended release 24 hr atorvastatin 80 mg tablet 80 mg PO .DAILY@169906/09/25 Unknown History bupropion HCl 150 mg 24 hr tablet, 150 mg PO .DAILY@06/02/25 06/09/25 Unknown History extended release (Wellbutrin XL) clopidogrel 75 mg tablet 75 mg PO .DAILY@1699 5 06/09/25 06/03/25 History fluticasone propionate 50 2 spray intranasal DAILY PRN 06/02/25 06/09/25 Unknown History mcg/actuation nasal Allergy Symptoms spray,suspension (Flonase Allergy Relief) metoprolol succinate 50 mg 50 mg PO .DAILY@1700 06/09/25 Unknown History tablet,extended release 24 hr omega-3 acid ethyl esters 1 gram 1 cap PO .DAILY@17006/02/25 06/09/25 06/03/25 History capsule peg 400-propylene glycol (PF) 0.4 1 drp ophthalmic (ey e) 6XD PRN Dry 06/02/25 06/09/25 Unknown History %-0.3 % eye drops in a dropperette Eye(S) (Systane (PF)) sertraline 100 mg tablet 100 mg PO .DAILY@17006/09/25 Unknown History albuterol sulfate 90 mcg/actuation 2 puff inhalation Q 4-6H PRN 06/09/25 06/09/25 Unknown History aerosol inhaler wheezing Physical Exam Vital Signs and Narrative: Vital Signs: Last Vital Signs Temp 98 F 06/09/25 11:32 Pulse 80 06/09/25 11:32 Resp 16 06/09/25 11:32 BP 132/82 06/09/25 11:32 Pulse Ox 97 06/09/25 11:32 O2 Del Method Room Air 06/09/25 11:32 O2 Flow Rate 2 06/09/25 11:00 BMI result Body Mass Index 34.1 Const: General: cooperative, comfortable, alert and awake Nutritional Appearance: average body habitus Orientation/consciousness: patient oriented x3 Resp: Effort & Inspection: normal respiratory effort, able to speak in c omplete sentences, no respiratory distress and no use of accessory muscles Cardio: Rate: regular rate Neuro: General: patient oriented x3, moves all extremities and CN's II-XI intact bilaterally Extrem: General: No pedal edema Assessment and Plan (1) NAHID on CPAP: Status: Acute (2) EtOH dependence: Qualifiers: Substance use status: uncomplicated Qualified Code(s): F10.20 - Alcohol dependence, uncomplicated Status: Acute Plan This is a 64-year-old male with CAD S/P triple bypass 2016, psoriasis, plantar fasciatis, MDD, hyperlipidemia, Vit D def, Vit b12 def, IFG, etoh dependence, NAHID on CPAP, seasonal allergies, obesity who presents for elective incisional hernia repair Multiple incisional hernias s/p repair with mesh and lysis of adhesions management as per surgical team As per Cardiology recommendation continue aspirin alcohol use reports drinking 2-3 alcoholic beverages per night; hard alcohol, wine or beer denies h/o etoh withdrawal in the past reportedly has not had alcohol this week in preparation for surgery - does not display any signs/symptoms of withdrawal at this time monitor on CIWA, start phenobarbitol protocol if becomes symptomatic NAHID continue CPAP at night CAD s/p LAD PCI in 2008. Brachytherapy to ISR of LAD 2002. Circumflex PCI 2006. CABG 2015 No chest pain, sob at this time continue ASA, statin, metoprolol, Imdur Can hold Plavix until safe to resume from surgical perspective Mood Continue sertraline, bupropion Thank you for allowing us to participate in the care of this patient. We will follow along with you.
--- NOTE | 2025-06-09 11:54 | PHA.MEDREC ---
Addendum entered by Janiya Blevins RPh 06/09/25 12:13: kajal reviewed Original Note: Pharmacy Consult ? Medication Reconciliation Pharmacy has reviewed the medication reconciliation done by nursing. Claims match med list.
[2025-06-09] MEDS: oxyCODONE HCl Immed Release 5 MG TABLET PO (14:25)
--- NOTE | 2025-06-09 16:46 | PM.EVENT ---
Event Note Date of Service: 06/10/25 Event Note: Seen postop Underwent repair of a large incisional hernia with mesh earlier Ambulating in room Complains of incisional pain Stable vital sign Abdomen is soft Dressings dry Voiding freely Pain management Diet as tolerated at bedside Time Spent With Patient Time: Total time managing care of this patient today ____ minutes.
[2025-06-09] MEDS: Metoprolol Succinate ER 50 MG TAB.ER.24H PO (17:41)
[2025-06-09] MEDS: buPROPion HCl XL 150 MG TAB.ER.24H PO (17:41)
[2025-06-09] MEDS: Aspirin Enteric Coated 81 MG TABLET.DR PO (17:41)
[2025-06-09] MEDS: Lactated Ringers 1,000 ML 60 ML IVCONT (21:58)
[2025-06-10 03:07] VITALS: BP 121/66; PULSE 68; RESP 18; TEMP 35.9; O2SAT 98
[2025-06-10 07:19] VITALS: BP 125/79; PULSE 63; RESP 16; TEMP 36.2; O2SAT 96
[2025-06-10 07:23] LABS: Hematocrit 36.7 % (42.0-52.0); Hemoglobin 11.8 g/dl (14.0-18.0); Mean Corpuscular HGB Conc 32.2 g/dl (31.0-36.0); Mean Corpuscular Hemoglobin 29.3 pg (27.0-33.0); Mean Corpuscular Volume 91.1 fL (80.0-98.0); NRBC Abs Auto 0.000 X10*3/uL (0.0-0.012); NRBC Pct Auto 0.0 /100WBC (0.0-0.2); Platelet Count 173 X10*3/uL (160-400); Red Blood Count 4.03 X10*6/uL (4.60-5.80); White Blood Count 8.6 X10*3/uL (4.8-10.8)
[2025-06-10 07:39] LABS: Anion Gap 11 (12-20); Blood Urea Nitrogen 17 mg/dL (9-16); Calcium 8.9 mg/dL (8.4-10.2); Carbon Dioxide 28 mmol/L (22-29); Chloride 103 mmol/L (96-108); Creatinine Clr Calc Pharmacy 99.6; Estimated Glomerular Filt Rate > 60; Potassium 4.2 mmol/L (3.3-5.1); Sodium 138 mmol/L (135-145)
[2025-06-10] MEDS: Lactated Ringers 1,000 ML 60 ML IVCONT ×2 (08:08→23:43)
[2025-06-10] MEDS: 0.9 % Sodium Chloride Flush 3 ML SYRINGE IVFLUSH (08:19)
[2025-06-10] MEDS: oxyCODONE HCl Immed Release 5 MG TABLET 10 MG PO ×3 (08:21→22:09)
--- NOTE | 2025-06-10 10:12 | P.PNGS_ITS ---
Subjective Subjective Date of Service: 06/10/25 Interval history: Admits pain on incision, appropriate to postop course Tolerating diet Has been ambulating Stable vital signs Physical Exam 2 Vital Signs: Vital Signs: Last Vital Signs Temp 97.1 F 06/10/25 07:19 Pulse 63 06/10/25 07:19 Resp 16 06/10/25 07:19 BP 125/79 06/10/25 07:19 Pulse Ox 96 06/10/25 07:19 O2 Del Method Room Air 06/10/25 07:19 O2 Flow Rate 2 06/09/25 11:00 BMI result Body Mass Index 34.1 Const: General: comfortable and no acute distress Resp: Effort & Inspection: normal respiratory effort Cardio: Rate: regular rate GI: Other: Dressings dry Palpation (GI): Soft to palpation, not firm and no guarding Objective Data Active Medications Acetaminophen (Acetaminophen 325 Mg Tablet) 650 mg PO Q6H PRN PRN Reason: Pain, Mild 1-3,fever,headache Aspirin (Aspirin Enteric Coated 81 Mg Tablet.Dr) 81 mg PO DAILY@1700 [facility] Last Admin: 06/09/25 17:41 Dose: 81 mg Documented By: AFSHIN Atorvastatin Calcium (Atorvastatin Calcium 80 Mg Tablet) 80 mg PO DAILY@1700 [facility] Last Admin: 06/09/25 17:41 Dose: 80 mg Documented By: AFSHIN Bupropion HCl (Bupropion Hcl Xl 150 Mg Tab.Er.24h) 150 mg PO DAILY@1700 [facility] Last Admin: 06/09/25 17:41 Dose: 150 mg Documented By: AFSHIN Calcium Carbonate (Calcium Carbonate 750 Mg Tab.Chew) 750 mg PO Q4H PRN PRN Reason: Heartburn Last Admin: 06/09/25 21:57 Dose: 750 mg Documented By: GIANA Docusate Sodium (Docusate Sodium 100 Mg Capsule) 100 mg PO BID [facility] Fluticasone Propionate (Fluticasone Propionate Nasal 16 Gm [place]) 2 spray NOSTRIL-B DAILY PRN PRN Reason: Allergy Symptoms Heparin Sodium (Porcine) (Heparin Sodium,Porcine 5,000 Unit/Ml Vial) 5,000 unit SUBCUT Q8H [facility] Lactated Ringer's (Lr) 1,000 mls @ 60 mls/hr IVCONT .[id number] [facility] Last Admin: 06/10/25 08:08 Dose: 60 mls/hr Documented By: GEORGINA Acetaminophen (Ofirmev) 1,000 mg in 100 mls @ 400 mls/hr IV Q6H [facility] Last Infusion: 06/10/25 09:48 Dose: Infused Documented By: GEORGINA Isosorbide Mononitrate (Isosorbide Mononitrate 30 Mg Tab.Er.24h) 30 mg PO DAILY@1700 [facility]; Protocol Last Admin: 06/09/25 17:41 Dose: 30 mg Documented By: AFSHIN Melatonin (Melatonin 3 Mg Tablet) 6 mg PO BEDTIME PRN PRN Reason: Insomnia Last Admin: 06/09/25 21:57 Dose: 6 mg Documented By: GIANA Metoprolol Succinate (Metoprolol Succinate Er 50 Mg Tab.Er.24h) 50 mg PO DAILY@1700 [facility]; Protocol Last Admin: 06/09/25 17:41 Dose: 50 mg Documented By: AFSHIN Morphine Sulfate (Morphine Sulfate 4 Mg/Ml Cartridge) 4 mg IVPUSH Q3H PRN; Protocol PRN Reason: Pain, Severe (Pain Scale 7-10) Last Admin: 06/10/25 03:56 Dose: 4 mg Documented By: GIANA Ondansetron HCl (Ondansetron Hcl 4 Mg/2 Ml Vial) 4 mg IVPUSH Q6H PRN PRN Reason: Nausea and Vomiting Oxycodone HCl (Oxycodone Hcl Immed Release 5 Mg Tablet) 10 mg PO Q4H PRN PRN Reason: Pain, Moderate(Pain Scale 4-6) Last Admin: 06/10/25 08:21 Dose: 10 mg Documented By: GEORGINA Polyethylene Glycol (Polyethylene Glycol 3350 17 Gm Powd.Pack) 17 gm PO DAILY PRN PRN Reason: Constipation Sertraline HCl (Sertraline Hcl 100 Mg Tablet) 100 mg PO DAILY@1700 [facility] Last Admin: 06/09/25 17:41 Dose: 100 mg Documented By: AFSHIN Sodium Chloride (0.9 % Sodium Chloride Flush 3 Ml Syringe) 3 ml IVFLUSH [facility] Last Admin: 06/10/25 08:19 Dose: 3 ml Documented By: GEORGINA Labs 06/10/25 06:40 06/10/25 06:40 Labs: Laboratory Results - last 24 hr 06/10/25 06:40 MCV 91.1 MCH 29.3 MCHC 32.2 RDW 13.6 Plt Count 173 MPV 10.3 Absolute Nucleated RBC 0.000 Nucleated RBC % (auto) 0.0 Anion Gap 11 L Estim Creat Clear Calc 99.6 Estimated GFR > 60 Random Glucose 123 H Calcium 8.9 Procedures Date of Service Date of Service: 06/10/25 Progress Note: A&P Assessment and plan (1) Incisional hernia: Status: Acute Assessment and Plan: Status post repair with large mass Looks well Appears to have good pain control Stable vital signs Labs okay We will see how he does on oral pain meds, possible discharge if with good pain control Time Spent With Patient Time: Total time managing care of this patient today ____ minutes. Quality Stroke Does the patient have a stroke diagnosis?: No VTE Prior VTE?: No VTE Risk Level:: Medical - moderate - high VTE Device Contraindication: N/A - Device Ordered VTE Drug Contraindication: N/A - Med Ordered
--- NOTE | 2025-06-10 13:43 | PC.NURSE ---
Patient friend and HCP requested to place patient on 3L of oxygen,called respiratory in ,they stated patient was doing well on 1 L of oxygen that is how they left patient after giving treatment,RN placed patient on 2 L sat is 97%,Dr. Milligan notified and requested that he come speak with HCP.lawnmower repair mechanicDELMIS Heredia was present.
[2025-06-10 15:29] VITALS: BP 119/69; PULSE 71; RESP 16; TEMP 36.2; O2SAT 94
--- NOTE | 2025-06-10 16:04 | MHC.CM.PN ---
Addendum entered by Jennifer Walden 06/11/25 14:34: PT CLEARED TO DC HOME TODAY WITH NO SERVICES TO TRANSPORT Original Note: PT REPORTS HE LIVES WITH HIS AND IS INDEPENDENT WITH CARE HE HAS A CPAP FOR DME AND NO SERVICES COPY OF HCP REQUESTED PCP: SHU MAJOR DCP: HOME VIA PRIVATE TRANSPORT
--- NOTE | 2025-06-10 16:15 | HO.POSTANES ---
Post Anesthesia Evaluation Post Anesthesia Evaluation Date of Service: 06/10/25 Vital Signs: Vital Signs Temp Pulse Resp BP Pulse Ox O2 Del Method 06/10/25 15:29 97.1 F 71 16 119/69 94 Room Air 06/10/25 07:19 97.1 F 63 16 125/79 96 Room Air Anesthesia: General Endotracheal-GETA Mental Status: Awake Pain Control: Satisfactory Nausea/Vomiting: None Hydration: Adequate Anesthesia-Related Issues: No Anes. Related Issues
--- NOTE | 2025-06-10 16:38 | HO.PM.IMPN ---
Subjective Subjective Date of Service: 06/10/25 Interval History: Seen and examined this morning Follow-up for medical consultation No evidence of alcohol withdrawal Pain control improved, up into chair Review of Systems Review of Systems: Yes all other systems are reviewed and are negative Constitutional Constitutional: Denies chills and Denies fever(s) Cardiovascular Cardiovascular: Denies chest pain Respiratory Respiratory: Denies cough Physical Exam Vital Signs: Vital Signs: Last Vital Signs Temp 97.1 F 06/10/25 15:29 Pulse 71 06/10/25 15:29 Resp 16 06/10/25 15:29 BP 119/69 06/10/25 15:29 Pulse Ox 94 06/10/25 15:29 O2 Del Method Room Air 06/10/25 15:29 O2 Flow Rate 2 06/09/25 11:00 BMI result Body Mass Index 34.1 Const: General: cooperative, comfortable, alert and awake Nutritional Appearance: average body habitus Orientation/consciousness: patient oriented x3 Resp: Effort & Inspection: normal respiratory effort, able to speak in complete sentences, no respiratory distress and no use of accessory muscles Cardio: Rate: regular rate Neuro: General: patient oriented x3, moves all extremities and CN's II-XI intact bilaterally Extrem: General: No pedal edema Objective Data Active Medications Acetaminophen (Acetaminophen 325 Mg Tablet) 650 mg PO Q6H PRN PRN Reason: Pain, Mild 1-3,fever,headache Aspirin (Aspirin Enteric Coated 81 Mg Tablet.) 81 mg PO DAILY@1700 [facility] Last Admin: 06/09/25 17:41 Dose: 81 mg Documented By: AFSHIN Atorvastatin Calcium (Atorvastatin Calcium 80 Mg Tablet) 80 mg PO DAILY@1700 [facility] Last Admin: 06/09/25 17:41 Dose: 80 mg Documented By: AFSHIN Bupropion HCl (Bupropion Hcl Xl 150 Mg Tab.Er.24h) 150 mg PO DAILY@1700 [facility] Last Admin: 06/09/25 17:41 Dose: 150 mg Documented By: AFSHIN Calcium Carbonate (Calcium Carbonate 750 Mg Tab.Chew) 750 mg PO Q4H PRN PRN Reason: Heartburn Last Admin: 06/10/25 15:57 Dose: 750 mg Documented By: GEORGINA Docusate Sodium (Docusate Sodium 100 Mg Capsule) 100 mg PO BID [facility] Fluticasone Propionate (Fluticasone Propionate Nasal 16 Gm [place]) 2 spray NOSTRIL-B DAILY PRN PRN Reason: Allergy Symptoms Heparin Sodium (Porcine) (Heparin Sodium,Porcine 5,000 Unit/Ml Vial) 5,000 unit SUBCUT Q8H [facility] Last Admin: 06/10/25 15:00 Dose: 5,000 unit Documented By: GEORGINA Lactated Ringer's (Lr) 1,000 mls @ 60 mls/hr IVCONT .[id number] [facility] Last Admin: 06/10/25 08:08 Dose: 60 mls/hr Documented By: GEORGINA Acetaminophen (Ofirmev) 1,000 mg in 100 mls @ 400 mls/hr IV Q6H [facility] Last Infusion: 06/10/25 15:24 Dose: Infused Documented By: GEORGINA Isosorbide Mononitrate (Isosorbide Mononitrate 30 Mg Tab.Er.24h) 30 mg PO DAILY@1700 [facility]; Protocol Last Admin: 06/09/25 17:41 Dose: 30 mg Documented By: AFSHIN Melatonin (Melatonin 3 Mg Tablet) 6 mg PO BEDTIME PRN PRN Reason: Insomnia Last Admin: 06/09/25 21:57 Dose: 6 mg Documented By: GIANA Metoprolol Succinate (Metoprolol Succinate Er 50 Mg Tab.Er.24h) 50 mg PO DAILY@1700 [facility]; Protocol Last Admin: 06/09/25 17:41 Dose: 50 mg Documented By: AFSHIN Morphine Sulfate (Morphine Sulfate 4 Mg/Ml Cartridge) 4 mg IVPUSH Q3H PRN; Protocol PRN Reason: Pain, Severe (Pain Scale 7-10) Last Admin: 06/10/25 14:41 Dose: 4 mg Documented By: YOANA Ondansetron HCl (Ondansetron Hcl 4 Mg/2 Ml Vial) 4 mg IVPUSH Q6H PRN PRN Reason: Nausea and Vomiting Oxycodone HCl (Oxycodone Hcl Immed Release 5 Mg Tablet) 10 mg PO Q4H PRN PRN Reason: Pain, Moderate(Pain Scale 4-6) Last Admin: 06/10/25 08:21 Dose: 10 mg Documented By: GEORGINA Polyethylene Glycol (Polyethylene Glycol 3350 17 Gm Powd.Pack) 17 gm PO DAILY PRN PRN Reason: Constipation Last Admin: 06/10/25 14:45 Dose: 17 gm Documented By: YOANA Sertraline HCl (Sertraline Hcl 100 Mg Tablet) 100 mg PO DAILY@1700 [facility] Last Admin: 06/09/25 17:41 Dose: 100 mg Documented By: AFSHIN Sodium Chloride (0.9 % Sodium Chloride Flush 3 Ml Syringe) 3 ml IVFLUSH QSHIFT [facility] Last Admin: 06/10/25 15:57 Dose: Not Given Documented By: GEORGINA Non-Admin Reason: IV Running Labs 06/10/25 06:40 06/10/25 06:40 Labs: Laboratory Results - last 24 hr 06/10/25 06:40 MCV 91.1 MCH 29.3 MCHC 32.2 RDW 13.6 Plt Count 173 MPV 10.3 Absolute Nucleated RBC 0.000 Nucleated RBC % (auto) 0.0 Anion Gap 11 L Estim Creat Clear Calc 99.6 Estimated GFR > 60 Random Glucose 123 H Calcium 8.9 Assessment and Plan (1) NAHID on CPAP: Status: Acute (2) EtOH dependence: Status: Acute Plan This is a 64-year-old male with CAD S/P triple bypass 2016, psoriasis, plantar fasciatis, MDD, hyperlipidemia, Vit D def, Vit b12 def, IFG, etoh dependence, NAHID on CPAP, seasonal allergies, obesity who presents for elective incisional hernia repair Multiple incisional hernias POD #1 s/p repair with mesh and lysis of adhesions management as per surgical team As per Cardiology recommendation continue aspirin alcohol use reports drinking 2-3 alcoholic beverages per night; hard alcohol, wine or beer denies h/o etoh withdrawal in the past reportedly has not had alcohol this week in preparation for surgery CIWA remains low, no signs of alcohol withdrawal NAHID continue CPAP at night CAD s/p LAD PCI in 2008. Brachytherapy to ISR of LAD 2002. Circumflex PCI 2006. CABG 2016 No chest pain, sob at this time continue ASA, statin, metoprolol, Imdur Can hold Plavix until safe to resume from surgical perspective Mood Continue sertraline, bupropion Thank you for allowing us to participate in the care of this patient. We will follow along with you. Quality Stroke Does the patient have a stroke diagnosis?: No VTE Prior VTE?: No VTE Risk Level:: Medical - moderate - high VTE Device Contraindication: N/A - Device Ordered VTE Drug Contraindication: N/A - Med Ordered
[2025-06-10 17:16] VITALS: BP 104/56; PULSE 69
[2025-06-10] MEDS: Metoprolol Succinate ER 50 MG TAB.ER.24H PO (17:16)
[2025-06-10] MEDS: Aspirin Enteric Coated 81 MG TABLET.DR PO (17:16)
[2025-06-10] MEDS: buPROPion HCl XL 150 MG TAB.ER.24H PO (17:17)
[2025-06-10 19:49] VITALS: BP 131/79; PULSE 70; RESP 18; TEMP 36.7
[2025-06-11] MEDS: oxyCODONE HCl Immed Release 5 MG TABLET 10 MG PO ×3 (02:23→12:41)
[2025-06-11 02:59] VITALS: BP 126/69; PULSE 78; RESP 18; TEMP 36; O2SAT 92
[2025-06-11] MEDS: 0.9 % Sodium Chloride Flush 3 ML SYRINGE IVFLUSH ×2 (07:32→14:14)
[2025-06-11 08:00] VITALS: BP 129/63; PULSE 71; RESP 16; TEMP 36.2; O2SAT 92
--- NOTE | 2025-06-11 09:35 | PM.PNGS ---
Subjective Subjective Date of Service: 06/13/25 Interval history: No events overnight Tolerating diet Passing flatus He does admit to reflux symptoms Physical Exam Vital Signs: Vital Signs: Last Vital Signs Temp 97.2 F 06/11/25 08:00 Pulse 71 06/11/25 08:00 Resp 16 06/11/25 08:00 BP 129/63 06/11/25 08:00 Pulse Ox 92 06/11/25 08:00 O2 Del Method Room Air 06/11/25 08:00 O2 Flow Rate 2 06/09/25 11:00 BMI result Body Mass Index 34.1 Const: Other: On recliner General: comfortable and no acute distress Resp: Effort & Inspection: normal respiratory effort Cardio: Rate: regular rate GI: Other: Incision clean and dry, repair intact Palpation (GI): Soft to palpation, not firm and no guarding Objective Data Active Medications Acetaminophen (Acetaminophen 325 Mg Tablet) 650 mg PO Q6H PRN PRN Reason: Pain, Mild 1-3,fever,headache Aspirin (Aspirin Enteric Coated 81 Mg Tablet.) 81 mg PO DAILY@1700 [facility] Last Admin: 06/10/25 17:16 Dose: 81 mg Documented By: GEORGINA Atorvastatin Calcium (Atorvastatin Calcium 80 Mg Tablet) 80 mg PO DAILY@1700 [facility] Last Admin: 06/10/25 17:16 Dose: 80 mg Documented By: GEORGINA Bupropion HCl (Bupropion Hcl Xl 150 Mg Tab.Er.24h) 150 mg PO DAILY@1700 [facility] Last Admin: 06/10/25 17:17 Dose: 150 mg Documented By: GEORGINA Calcium Carbonate (Calcium Carbonate 750 Mg Tab.Chew) 750 mg PO Q4H PRN PRN Reason: Heartburn Last Admin: 06/11/25 07:41 Dose: 750 mg Documented By: GEORGINA Docusate Sodium (Docusate Sodium 100 Mg Capsule) 100 mg PO BID [facility] Last Admin: 06/11/25 07:36 Dose: 100 mg Documented By: GEORGINA Fluticasone Propionate (Fluticasone Propionate Nasal 16 Gm [place]) 2 spray NOSTRIL-B DAILY PRN PRN Reason: Allergy Symptoms Heparin Sodium (Porcine) (Heparin Sodium,Porcine 5,000 Unit/Ml Vial) 5,000 unit SUBCUT Q8H [facility] Last Admin: 06/11/25 06:14 Dose: 5,000 unit Documented By: GIANA Acetaminophen (Ofirmev) 1,000 mg in 100 mls @ 400 mls/hr IV Q6H [facility] Last Infusion: 06/11/25 07:52 Dose: Infused Documented By: GEORGINA Isosorbide Mononitrate (Isosorbide Mononitrate 30 Mg Tab.Er.24h) 30 mg PO DAILY@1700 [facility]; Protocol Last Admin: 06/10/25 17:17 Dose: 30 mg Documented By: GEORGINA Melatonin (Melatonin 3 Mg Tablet) 6 mg PO BEDTIME PRN PRN Reason: Insomnia Last Admin: 06/10/25 22:10 Dose: 6 mg Documented By: GIANA Metoprolol Succinate (Metoprolol Succinate Er 50 Mg Tab.Er.24h) 50 mg PO DAILY@1700 [facility]; Protocol Last Admin: 06/10/25 17:16 Dose: 50 mg Documented By: GEORGINA Morphine Sulfate (Morphine Sulfate 4 Mg/Ml Cartridge) 4 mg IVPUSH Q3H PRN; Protocol PRN Reason: Pain, Severe (Pain Scale 7-10) Last Admin: 06/11/25 04:37 Dose: 4 mg Documented By: GIANA Ondansetron HCl (Ondansetron Hcl 4 Mg/2 Ml Vial) 4 mg IVPUSH Q6H PRN PRN Reason: Nausea and Vomiting Oxycodone HCl (Oxycodone Hcl Immed Release 5 Mg Tablet) 10 mg PO Q4H PRN PRN Reason: Pain, Moderate(Pain Scale 4-6) Last Admin: 06/11/25 07:41 Dose: 10 mg Documented By: GEORGINA Polyethylene Glycol (Polyethylene Glycol 3350 17 Gm Powd.Pack) 17 gm PO DAILY PRN PRN Reason: Constipation Last Admin: 06/11/25 07:41 Dose: 17 gm Documented By: GEORGINA Sertraline HCl (Sertraline Hcl 100 Mg Tablet) 100 mg PO DAILY@1700 [facility] Last Admin: 06/10/25 17:16 Dose: 100 mg Documented By: GEORGINA Sodium Chloride (0.9 % Sodium Chloride Flush 3 Ml Syringe) 3 ml [facility] Last Admin: 06/11/25 07:32 Dose: 3 ml Documented By: HO.BEIT Labs 06/10/25 06:40 06/10/25 06:40 Procedures Date of Service Date of Service: 06/13/25 Progress Note: A&P Assessment and plan (1) Incisional hernia: Status: Acute Assessment and Plan: Status post repair of multiple enlarged incisional hernias with mesh Incision looks clean and dry Abdomen is soft He does admit to pain control issues I told him that if he good pain control with oral pain meds, I can discharge him this afternoon He is ambulating Okay to restart Plavix today We will re-evaluate later on Time Spent With Patient Time: Total time managing care of this patient today ____ minutes. Quality Stroke Does the patient have a stroke diagnosis?: No VTE Prior VTE?: No VTE Risk Level:: Medical - moderate - high VTE Device Contraindication: N/A - Device Ordered VTE Drug Contraindication: N/A - Med Ordered
--- NOTE | 2025-06-11 14:23 | PM.EVENT ---
Event Note Date of Service: 06/11/25 Event Note: Seen on afternoon rounds He says he feels ready to be discharged Tolerating diet although appetite is not great Abdomen is soft Ambulating Stable vital signs Discharge instructions reinforced with the patient He looks well clinically Time Spent With Patient Time: Total time managing care of this patient today ____ minutes.
[2025-06-11 15:42] VITALS: BP 143/83; PULSE 72; RESP 16; TEMP 36.5; O2SAT 93
--- NOTE | 2025-06-11 16:12 | P.DS_ITS ---
DS: Providers Provider Date of Service: 06/11/25 Date of admission: 06/09/25 10:36 Date of discharge: 06/11/25 Primary care physician: LORRAINE Slater- Attending physician on admission: Stoney Garcia Consults: 06/09/25 09:35 Consult to Hospitalist Routine Comment: Consulting Provider: [facility] Reason For Exam: medical managment, post op large incisional hernia Attending physician on discharge: Stoney Garcia DS: Diagnosis Discharge Diagnosis (1) Incisional hernia: Status: Acute DS: Summary Hospital Course Hospital Course: HPI AT ADMISSION: The patient is a 65-year-old male who had undergone a complicated colon surgery for diverticulitis about 10 years ago in [facility]. He said he had a re-exploration 3 days after that. He had developed a hernia which continued to increase in size of the years. He was seen in the office and he wanted to proceed with repair. His CAT scan has been reviewed and this had shown multiple hernias bowel loops. He now presents for the planned procedure. HOSPITAL COURSE: On 06/09/25, Repair of multiple incisional hernias with large Ventrio mesh, 11 x 14 cm, with extensive lysis of adhesions was performed by Dr. Garcia without immediate complications. He was admitted post operatively for pain control in view of the large size of the hernia. Hospitalist consult was obtained for management of his medical comorbidities and ETOH withdrawal. He had an uncomplicated recovery course. He remained inpatient two nights for pain control. He had no signs of ETOH withdrawal. On the day of discharge, he was tolerating a solid diet without nausea or vomiting. He had good pain control on oral analgesics. He was hemodynamically stable with clean incision and appropriate post op tenderness. He was discharged to home on 06/11/25. He is to follow up in the office in 2 weeks. His plavix was resumed on discharge. Status at Discharge Functional status at discharge: independent ambulation Overall status at discharge: patient is progressing back to baseline Time Attestation Discharge Coordination Time (in mins): 30 Quality: Safe Use of Opioids Does Pt have an Active Cancer Diagnosis on the Problem List?: No Quality: Stroke Does the patient have a stroke diagnosis?: No Physical Exam Vital Signs: Vital Signs: Last Vital Signs Temp 97.7 F 06/11/25 15:42 Pulse 72 06/11/25 15:42 Resp 16 06/11/25 15:42 BP 143/83 H 06/11/25 15:42 Pulse Ox 93 06/11/25 15:42 O2 Del Method Room Air 06/11/25 15:42 O2 Flow Rate 2 06/09/25 11:00 BMI result Body Mass Index 34.1 Const: General: comfortable, no acute distress and alert Orientation/consciousness: patient oriented x3 GI: Inspection: No distended and Yes incision (clean appearing, repair intact) Palpation (GI): Soft to palpation and Tenderness to palpation present (GI) (incisional) Neuro: General: patient oriented x3 Discharge Plan Discharge Anticipated Discharge Date/Time: 06/11/25 14:23 Patient Disposition: Home, Self-Care Discharge Diagnosis: Large incisional hernia, multiple Referrals: Stoney Garcia MD [Physician, General Surgery] - 2 Weeks Becka Borden FNP-BC [Primary Care Provider, Internal Medicine] - 1 Week Discharge Medications: New oxycodone-acetaminophen 5-325 mg tablet 1 tab PO Q6H PRN (Reason: pain) Qty: 25 0RF Rx Instructions: Partial Fill upon patient request. docusate sodium [Colace] 100 mg capsule 100 mg PO BID Qty: 60 2RF docusate sodium [Colace] 100 mg capsule 100 mg PO BID Qty: 60 2RF Continued celecoxib [Celebrex] 200 mg capsule 200 mg PO Q12H PRN (Reason: pain) 30 Days Qty: 60 3RF fluticasone propionate [Flonase Allergy Relief] 50 mcg/actuation spray,suspension 2 spray intranasal DAILY PRN (Reason: Allergy Symptoms) Rx Instructions: administer into each nostril Systane (PF) 0.4-0.3 % Dropperette 1 drp OPHTHALMIC (EYE) 6XD PRN (Reason: Dry Eye(S)) atorvastatin 80 mg tablet 80 mg PO .DAILY@1700 metoprolol succinate 50 mg tablet extended release 24 hr 50 mg PO .DAILY@1700 sertraline 100 mg tablet 100 mg PO .DAILY@1700 bupropion HCl [Wellbutrin XL] 150 mg tablet extended release 24 hr 150 mg PO .DAILY@1700 omega-3 acid ethyl esters 1 gram capsule 1 cap PO .DAILY@1700 clopidogrel 75 mg tablet 75 mg PO .DAILY@1700 albuterol sulfate 90 mcg/actuation HFA aerosol inhaler 2 puff inhalation Q4-6H PRN (Reason: wheezing) aspirin 81 mg tablet,delayed release (DR/EC) 81 mg PO .DAILY@1700 mecobalamin (vitamin B12) 2,500 mcg tablet,chewable 2,500 mcg PO .DAILY@1700 coQ10 (ubiquinol) [Qunol Tony CoQ10] 100 mg capsule 100 mg PO .DAILY@1700 isosorbide mononitrate 30 mg tablet extended release 24 hr 30 mg PO .DAILY@1700 Discharge Orders: Discharge Order (Routine); Ordered 06/11/25 Ordered By: Stoney Garcia Diet: Advance to usual diet Activity on Discharge: No heavy lifting Stand Alone Forms: Patient Portal Discharge page Print Language: [place] Irish Care Plan Goals: Return to baseline Health Concerns: Pain management postop Has coronary artery disease Plan of Treatment: Oral pain med Resume home meds including Plavix Assessment: Doing well Discharge Date/Time: 06/11/25 16:05
== END 2025-06-11 16:05 | disposition home or self-care (01) | DRG 337 ==
LOC: HO.SSSA 10:38 → HO.S3 11:08
PROVIDERS: Admitting Provider Surgery; PCP Nurse Practitioner Family; Visit Provider Surgery
PROC: 0WUF0JZ Supplement Abdominal Wall with Synthetic Substitute, Open Approach (ICD-10-PCS; CPT 49595; principal; 2025-06-09 07:30)
DX: K43.2 Incisional hernia without obstruction or gangrene (principal); I25.10 Atherosclerotic heart disease of native coronary artery without angina pectoris; K66.0 Peritoneal adhesions (postprocedural) (postinfection); F10.20 Alcohol dependence, uncomplicated; F39 Unspecified mood [affective] disorder; G47.33 Obstructive sleep apnea (adult) (pediatric); Z95.5 Presence of coronary angioplasty implant and graft; Z87.891 Personal history of nicotine dependence; Z79.82 Long term (current) use of aspirin; Z79.899 Other long term (current) drug therapy
CPT/HCPCS: 49595; 36415; 80048; 85027; 99221; C1781; C1889; J0131; J0330; J0690; J1100; J1171; J1308; J1644; J1885; J2003; J2250; J2270; J2405; J2704; J2795; J3010; J7120

== ENCOUNTER → 2025-06-09 10:36 | Outpatient (BNV) | payer OTHER, SELFPAY | PROVIDERS: Admitting Provider Surgery; PCP Nurse Practitioner Family; Visit Provider Surgery | DX: K43.2 Incisional hernia without obstruction or gangrene (principal) | CPT/HCPCS: 99238; 99499 ==

== ENCOUNTER → 2025-06-09 10:36 | Outpatient (BNV) | payer OTHER, SELFPAY | PROVIDERS: Admitting Provider Surgery; PCP Nurse Practitioner Family; Visit Provider Physician Assistant Medical | DX: G47.33 Obstructive sleep apnea (adult) (pediatric) (principal); F10.20 Alcohol dependence, uncomplicated | CPT/HCPCS: 99223; 99232 ==

== ENCOUNTER 2025-06-19 13:07 | Outpatient (AMB) | payer OTHER, SELFPAY ==
--- NOTE | 2025-06-19 13:11 | A.OFFPC_ITS ---
Vital Signs 06/19/25 13:20 Height 5 ft 10 in Weight 233 lb 2 oz BMI 33.4 BP 132/72 Blood Pressure Location Rt brachial Position Sitting Respiration 13 Pulse 82 Pulse Source Pulse Oximeter Temp 97.7 F Temp Source Oral Pulse Oximetry (%) 96 Oxygen Delivery Method Room Air Intake Visit Reasons: 6 mo routine fu 30 min Intake Note: Post op for surgical hernia done on 06/09/24. Marketing Analytics Specialist Required: No Allergies cat dander Allergy (Intermediate, Verified 06/19/25 13:11) Sneezing dog dander Allergy (Intermediate, Verified 06/19/25 13:11) Sneezing Seasonal Allergies Allergy (Intermediate, Verified 06/19/25 13:11) Sneezing Medication List - Last Reconciled 06/19/25 by Becka Borden CHEMICAL SALES REPRESENTATIVE- albuterol sulfate 90 mcg/actuation 2 puffs inhalation Q4-6H PRN aspirin 81 mg PO .DAILY@1700 atorvastatin 80 mg PO .DAILY@1700 bupropion HCl XL (Wellbutrin XL) 150 mg PO .DAILY@1700 celecoxib (Celebrex) 200 mg PO Q12H PRN 1 month clopidogrel 75 mg PO .DAILY@1700 coQ10 (ubiquinol) (Qunol Tony CoQ10) 100 mg PO .DAILY@1700 docusate sodium (Colace) 100 mg PO BID docusate sodium (Colace) 100 mg PO BID fluticasone propionate 50 mcg/actuation (Flonase Allergy Relief) 2 sprays intranasal DAILY PRN isosorbide mononitrate ER 30 mg PO .DAILY@1700 mecobalamin (vitamin B12) 2,500 mcg PO .DAILY@1700 metoprolol succinate ER 50 mg PO .DAILY@1700 omega-3 acid ethyl esters 1 cap PO .DAILY@1700 oxycodone-acetaminophen 5-325 mg (Percocet) 2 tabs PO Q6H PRN peg 400-propylene glycol (PF) 0.4-0.3 % (Systane (PF)) 1 drp ophthalmic (eye) 6XD PRN sertraline 100 mg PO .DAILY@1700 Tobacco use date assessed: 06/19/25 Fall risk assessment: No Falls in past year Last assessed Fall Risk: 06/19/25 Dental Screening Dental Screen Date: 06/19/25 Did you have a dental visit in the last 12 months?: Yes Did you have a dental problem in the last 6 months where you did not have access to dental care?: No Was dental information given to patient?: Patient has dentist HPI HPI Comments History of Present Illness Details 65-year-old male with CAD S/P triple byp ass 2016, psoriasis, plantar fasciatis , MDD, hyperlipidemia, Vit D def, Vit b12 def, IFG, etoh dependence, NAHID on CPAP, seasonal allergies, obesity s/p LAD PCI in 2008. Brachytherapy to ISR of LAD 2002. Circumflex PCI 2006. CABG 2016, 06/09/25, Repair of multiple incisional hernias with large Ventrio mesh, 11 x 14 cm, with extensive lysis of adhesions was performed by Dr. Garcia Flu shot 06/19/25 Here today for a Transitional Care Management Visit Discharge summary reviewed. HOSPITAL COURSE: On 06/09/25, Repair of multiple incisional hernias with large Ventrio mesh, 11 x 14 cm, with extensive lysis of adhesions was performed by Dr. Garcia without immediate complications. He was admitted post operatively for pain control in view of the large size of the hernia. Hospitalist consult was obtained for management of his medical comorbidities and ETOH withdrawal. He had an uncomplicated recovery course. He remained inpatient two nights for pain control. He had no signs of ETOH withdrawal. On the day of discharge, he was tolerating a solid diet without nausea or vomiting. He had good pain control on oral analgesics. He was hemodynamically stable with clean incision and appropriate post op tenderness. He was discharged to home on 06/11/25. He is to follow up in the office in 2 weeks. His plavix was resumed on discharge. Admission Date: 06/09/25 Discharge Date: 06/11/25 Hospital: [facility] Date of interactive contact with Nurse Navigator: as documented in chart Pending diagnostic tests/treatments: n/a Pending consults: none DME: n/a PT/OT/MEDICATION SPECIALIST: no Home Health Aide/MARINE PLUMBER: no Referrals: none Medications reconciled & updated. Discharge Medications: New oxycodone-acetaminophen 5-325 mg tablet 1 tab PO Q6H PRN (Reason: pain) Qty: 25 0RF Rx Instructions: Partial Fill upon patient request. docusate sodium [Colace] 100 mg capsule 100 mg PO BID Qty: 60 2RF docusate sodium [Colace] 100 mg capsule 100 mg PO BID Qty: 60 2RF During todays TCM visit, the d/c summary was reviewed, along with the need for or follow-up on pending diagnostic tests and treatments, as necessary interaction with other health home health caregiver who will assume or reassume care of the beneficiary?s system-specific problems was done or is being worked on, education was provided to the beneficiary, family, guardian, and/or car egiver, referrals to establish or re-establish and arrange needed community resources we completed, assistance in scheduling required follow-up with community providers and services & finally updated medication list given to patient/caregiver History of Present Illness The patient is a 65-year-old male presenting for a transitional care management visit following hospitalization for incisional hernia repair. Postoperative state after incisional hernia repair: - The patient was admitted to [facility] on June 09, 2025, for the repair of multiple incisional hernias, which involved a large mesh placement and extensive lysis of adhesions performed by Dr. Garcia. - He was discharged home on June 11, 2025. - He reports significant soreness post-s urgery but feels the surgery went well. - The surgical dressing is not leaking o r weeping. - He has noted a 4-pound weight loss sin ce discharge, with a current weight of 233 pounds. Opioid-induced constipation: - The patient is taking Percocet, two ta blets every six hours, for pain management, and reports constipation, with his last bowel movement occurring about three days ago. - He is taking prescribed stool softener s QD but continues to be constipated. - The patient has tried MiraLax x3 once since returning home. - He reports reduced appetite and notes that any exertion to have a bowel movement is painful. Acute postoperative pain: - The patient reports the surgical area is sore as hell. - He is managing his pain with Percocet and will require a refill. - He has a follow-up appointment with [facility] surgeon, Dr. Garcia, next week. Review of Systems - Constitutional: Reports weight loss an d decreased appetite. - Respiratory: Denies any breathing issu es. - Cards: Denies chest pain - Gastrointestinal: Reports constipation for approximately three days and passing gas. Reports pain with exertion during bowel movements. - Musculoskeletal: Reports abdominal sor eness. Denies new leg pain or swelling. - Integumentary: Denies leakage or weepi ng from the surgical incision. Physical Exam General: Well developed, well nourished, in no acute distress. Appears stated age. Head: Normocephalic, atraumatic. Eyes: Pupils are equal, round and reactive to light and accommodation. Conjunctivae are clear. . Lungs: Clear to auscultation bilaterally. No rales, rhonchi or wheeze noted. Good air flow in all yusuf. Heart: Regular rate and rhythm. No murmurs, click, rubs or gallops are noted. Abdomen: Bowel sounds hypoactive x 4, The abdomen is soft, nontender, with no masses or organomegaly noted. Midline surgical incision with intact shannon edges well approx, no drainage. DCD applied. Musculoskeletal: Joints are nontender, without swelling, redness, or effusions. Pulses: Peripheral pulses are equal and palpable bilaterally. Extremities: No clubbing, cyanosis nor edema is noted. Psych: Mood and affect appropriate. Medical Decision Making The patient is a 65-year-old male presenting for transitional care management after a recent hospitalization for incisional hernia repair. He is doing well overall from a surgical standpoint, with a well-healing incision and no signs of acute postoperative complications such as infection or respiratory compromise. The primary issues addressed were opioid-induced constipation and pain management. For constipation, a multimodal approach was recommended, including increasing the dose of his current stool softener (docusate) to twice daily, adding daily MiraLax with adequate fluid intake, and having a stimulant laxative (bisacodyl) on hand for use if there is no bowel movement within two days. Regarding his acute postoperative pain, he is running out of his prescribed Percocet, and since I am not the original prescriber, an urgent message was sent to his surgeon's office to request a refill. Preventative care was also addressed. The patient received his annual influenza vaccine. He was counseled to discuss his status for pneumococcal and shingles immunizations with his pharmacist, as they can access the state registry. The patient has appropriate surgical and sleep lab follow-ups scheduled and will return here as needed. Plan 1. Postoperative Incisional Hernia Care - Physical exam today shows a well-heali ng surgical incision with 13 shannon, which is clean and soft. - A new clean, non-stick dressing was ap plied in the office. - Patient will follow up with the Dr. Jose radford, next week. 2. Opioid-Induced Constipation - Increase docusate (Colace) to one tabl et twice daily, in the morning and at night. - Begin taking MiraLax at bedtime with a t least 8 ounces of water. - If no bowel movement occurs within the next two days, the patient is advised to take a stimulant laxative, such as the prescribed bisacodyl or [id number] X-Lax. - If stimulant pills are ineffective, th e patient should utilize an enema. 3. Acute Postoperative Pain - The patient is using Percocet for pain control and is running out. - Sent an urgent message to the surgeon, Dr. Garcia, to request a refill of Percocet. 4. Preventative Care: Immunization - Administered the annual influenza vacc ine during the visit. - Advised the patient to inquire at the pharmacy about his immunization status for the shingles (Shingrix) and pneumococcal vaccine series. 5. Planned Follow-Up - The patient has a follow-up visit sche duled with the surgeon next week and a sleep lab appointment tomorrow. - No follow-up appointment was scheduled at this clinic. The patient will call if any issues arise, with his next routine physical due in six months. Patient Instructions - For constipation, start taking one Col nilda pill in the morning and one at night. - Also, take MiraLax every night at bedt eriberto mixed with a full glass (8 ounces) of water. - If you do not have a bowel movement in the next two days, take the bisacodyl stimulant pills that were prescribed for you. - If the pills do not work, you can use an enema to help you go. - A request for a refill of your Percoce t pain medication has been sent to your surgeon's office. - You received your annual flu shot toda y. - When you go to the pharmacy, ask the aleta luna to check which other vaccines you are due for, such as the shingles and pneumonia shots. - Keep your appointment with your adamaris nunes next week and go to your sleep lab appointment tomorrow. - Please call our office if anything com es up or you need further help. - RTO 6 mo for CPe, labs 1 week before, sooner PRN Consent Patient was informed and verbally consented to the use of an ambient scribe for clinic note documentation during this visit. Total time spent caring for the patient today was 40 minutes. This includes time spent before the visit reviewing the chart, time spent during the visit, and time spent after the visit on documentation, reviewing laboratory results, diagnostic imaging, medications, performing a medically necessary evaluation, counseling on diagnoses, care coordination, ordering appropriate tests, ordering appropriate medications, review of tests performed by other providers, reporting test results with the patient, communication with other healthcare providers. [facility] Medical History (Updated 06/19/25 @ 16:31 by LORRAINE Slater-) Back pain CAD (coronary artery disease) CAP (community acquired pneumonia) Dry eye Environmental allergies Heart disease High blood pressure High cholesterol History of blood transfusion History of pneumonia (11/2024) Hx of diverticulitis of colon (~2014) Hx of myocardial infarction (~2013) Incisional hernia NAHID on CPAP Plantar fasciitis Psoriasis Seasonal allergies Shoulder injury Stenosis of other cardiac prosthetic devices, implants and grafts, initial encounter Surgical History (Updated 06/19/25 @ 16:30 by LORRAINE Slater-) H/O angioplasty H/O endoscopic sinus surgery H/O heart artery stent H/O nasal septoplasty H/O turbinectomy History of colon resection (~2014) History of colonoscopy (~07/2024) History of laparotomy (~2014) Hx of coronary artery bypass graft (2015) Hx of repair of left rotator cuff (~2013) Status post aorto-coronary artery bypass graft Family History Mother Ovarian cancer Father High blood pressure High blood cholesterol Cardiovascular disease Unknown High blood pressure High blood cholesterol Cardiovascular disease Social History Household Members: Spouse Housing: House Are you a primary residential caregiver to a significant other at home: No Do you presently have visiting nurse or other home services: No Alcohol intake: current Comment: social Patient Tobacco Use Status: Former Tobacco user Tobacco use type: Cigarette e-Cigarette/Vaping Use: Never Used service: No Current occupational status: employed 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 Cognitive needs: No Hearing needs: No Vision needs: Yes Questionnaire Thrive Questionnaire Date Thrive assessed: 08/22/24 I am a: Patient What is your living situation today?: I choose not to answer this question Within the past 12 months, did the food you bought not last and you didn't have the money to get more?: I choose not to answer this question Within the past 12 months, did you worry whether your food would run out before you got money to buy more?: I choose not to answer this question Do you have trouble paying for medicines?: I choose not to answer this question Do you have trouble getting transportation to medical appointments?: I choose not to answer this question Do you have trouble paying your heating and electricity bill?: I choose not to answer this question Do you have trouble taking care of your child, family member or friend?: I choose not to answer this question Do you have trouble with day-to-day activities such as bathing, preparing meals, shopping, managing finances, etc.?: I choose not to answer this question Are you currently unemployed and looking for a job?: I choose not to answer this question Are you interested in more education?: I choose not to answer this question Please select the resources that you would like help with: None Currently or been in a relationship where the following occur: I choose not to answer THRIVE Score: 0 VEE-7 AMB Questionnaire VEE-7 Date VEE - 7 assessed: 08/22/24 Source: Developed by Drs. Manny Simpson, Isabella Pérez, David Herring and colleagues, with an educational stacie from [employer]. Physical exam (Primary Care) Vital Signs: Last Vital Signs Temp 97.7 F 06/19/25 13:20 Pulse 82 06/19/25 13:20 Resp 13 06/19/25 13:20 BP 132/72 06/19/25 13:20 Pulse Ox 96 06/19/25 13:20 Oxygen Delivery Method Room Air 06/19/25 13:20 BMI result Body Mass Index 33.4 Tobacco/Smoking Status: Tobacco use Status Tobacco use date assessed 06/19/25 06/19/25 13:15 Patient Tobacco Use Status Former Tobacco user 06/19/25 13:15 Tobacco use type Cigarette 06/19/25 13:15 e-Cigarette/Vaping Use Never Used 06/19/25 13:15 Thrive Assessment: Date of Thrive Assessment Date Thrive assessed 08/22/24 06/19/25 13:15 Currently or been in a relationship where the following occur: I choose not to answer Office Procedures Flu Questionnaire Does the patient have a severe egg allergy?: No Does the patient have severe life threatening allergies?: No Does the patient have a fever or illness today?: No Has the patient ever had Guillain-Winder Syndrome?: No Has the patient ever had any past reaction to a flu shot?: No Immunizations Fluarix 9036-1556 (PF) 45 mcg (15 mcg x 3)/0.5 mL IM syringe Performing Provider: JOSE Slater Performing Location: [facility] Administered by: Gilles Pressley RN on 06/19/25 14:07 Dose Route Admin Location Dispensed Lot Number Expiration Date [facility] Song And Dance Performer 0.5 mL IM Right Deltoid 0.5 mL [id number] 02/06/26 06481-883-21 [employer] VIS Given Date VIS Provided VIS Publication Date 06/19/25 Single Vaccine 24 Eligibility Eligibility Date Funding Source Not [facility] Eligible 06/19/25 Private Coding Level of Care Code TCM High MDM <= 14 days Complex EM visit Add On G2211 Diagnoses Hospital discharge follow-up Z09 S/P hernia repair Z98.890; Z87.19 Influenza vaccination administered at current visit Z23 Assessment & Plan Assessment & Plan (1) Hospital discharge follow-up: Code(s): Z09 - Encounter for follow-up examination after completed treatment for con ditions other than malignant neoplasm (2) S/P hernia repair: Onset Date: ~05/2025 Code(s): Z98.890 - Other specified postprocedural states; Z87.19 - Personal history of other diseases of the digestive system Category: Surgical (3) Influenza vaccination administered at current visit: Onset Date: ~06/19/25 Code(s): Z23 - Encounter for immunization Category: Medical Plan . Orders: Orders Complete Blood Count no Diff 6 Months E53.8 - Deficiency of other specified B group vitamins, E55.9 - Vitamin D deficiency, unspecified, E78.2 - Mixed hyperlipidemia, I25.10 - Atherosclerotic heart disease of [place] coronary artery without angina pectoris, R73.01 - Impaired fasting glucose Comprehensive Met. Panel 6 Months E53.8 - Deficiency of other specified B group vitamins, E55.9 - Vitamin D deficiency, unspecified, E78.2 - Mixed hyperlipidemia, I25.10 - Atherosclerotic heart disease of [place] coronary artery without angina pectoris, R73.01 - Impaired fasting glucose Vitamin B12 and Folate 6 Months E53.8 - Deficiency of other specified B group vitamins, E55.9 - Vitamin D deficiency, unspecified, E78.2 - Mixed hyperlipidemia, I25.10 - Atherosclerotic heart disease of [place] coronary artery without angina pectoris, R73.01 - Impaired fasting glucose Vitamin D 25-OH Total 6 Months E53.8 - Deficiency of other specified B group vitamins, E55.9 - Vitamin D deficiency, unspecified, E78.2 - Mixed hyperlipidemia, I25.10 - Atherosclerotic heart disease of [place] coronary artery without angina pectoris, R73.01 - Impaired fasting glucose Influenza [id number] Immunization Today Z23 - Encounter for immunization Hemoglobin A1c 6 Months E53.8 - Deficiency of other specified B group vitamins, E55.9 - Vitamin D deficiency, unspecified, E78.2 - Mixed hyperlipidemia, I25.10 - Atherosclerotic heart disease of [place] coronary artery without angina pectoris, R73.01 - Impaired fasting glucose Lipid Panel 6 Months E53.8 - Deficiency of other specified B group vitamins, E55.9 - Vitamin D deficiency, unspecified, E78.2 - Mixed hyperlipidemia, I25.10 - Atherosclerotic heart disease of [place] coronary artery without angina pectoris, R73.01 - Impaired fasting glucose Microalbumin, Random (w Creat) 6 Months E53.8 - Deficiency of other specified B group vitamins, E55.9 - Vitamin D deficiency, unspecified, E78.2 - Mixed hyperlipidemia, I25.10 - Atherosclerotic heart disease of [place] coronary artery without angina pectoris, R73.01 - Impaired fasting glucose Prostate Specific Antigen Scr 6 Months E53.8 - Deficiency of other specified B group vitamins, E55.9 - Vitamin D deficiency, unspecified, E78.2 - Mixed hyperlipidemia, I25.10 - Atherosclerotic heart disease of [place] coronary artery without angina pectoris, R73.01 - Impaired fasting glucose TSH reflex Free T4 6 Months E53.8 - Deficiency of other specified B group vitamins, E55.9 - Vitamin D deficiency, unspecified, E78.2 - Mixed hyperlipidemia, I25.10 - Atherosclerotic heart disease of [place] coronary artery without angina pectoris, R73.01 - Impaired fasting glucose Medications: New bisacodyl (Dulcolax (bisacodyl)) 5 mg PO BEDTIME 2 tabs 0RF 2 days polyethylene glycol 3350 (Miralax) 17 grams PO DAILY 510 grams 0RF
[2025-06-19 13:20] VITALS: BP 132/72; PULSE 82; RESP 13; TEMP 36.5; O2SAT 96; BMI 33.4
--- OUTSIDE RECORDS SUMMARY | 2025-06-19 15:16 | XMS_ITS | Clinical Summary ---
Author Organization [facility] Address [address] [address] Phone Care Team Providers Care Energy Conservation Technician Name Role Phone Unavailable Primary Care Provider [...] It is not the complete legal health record.[facility]
--- OUTSIDE RECORDS SUMMARY | 2025-06-19 15:16 | XMS_ITS | Data Portability ---
Author Organization [facility] [id number] Address [address] [place] [address] Assessment No assessment recorded. Plan of Treatment [...] Diagnosis SNOMED-CT Code Diagnosis ICD10 Code Diagnosis IMO Codes Diagnosis Note [id number] [address] [place] [address] [address] [address] 11/13/2017 11:47:20 11/13/2017 13:02:[id number] [place] [address] [address] [address] 7 07/01/2019 15:10:17 07/01/2019 17:19:[id number] [place] [address] [address] 07/01/2019 17:05:04 07/01/2019 17:21:[id number] [place] [address] [address] [address] 01/18/2019 15:42:44 01/18/2019 16:43:48 [id number] [address] [address] [address] 7 12/15/2020 10:59:24 12/15/2020 11:35:03 Health Concerns Section Related Observation LastModified by Organization Detai ls LastModified Time None Recorded Concern Status LastModified by Organization Details LastModified Time None Recorded Advance Directives Directive None Recorded Payers Insurance Date Sequence Insurance Name Policy Number Policy Mata Covered Member ID Mata Member ID Guarantor Name 10/08/2024 1 [facility] [id number] John Quinn [id number] John Quinn 10/08/2024 1 [facility] [id number] John Quinn [id number] John Quinn
== END 2025-06-19 14:11 | disposition home or self-care (01) ==
LOC: HO.HMCFM 13:08
PROVIDERS: PCP Nurse Practitioner Family; Visit Provider Nurse Practitioner Family
DX: T40.2X5A Adverse effect of other opioids, initial encounter (principal); K59.03 Drug induced constipation; Z09 Encounter for follow-up examination after completed treatment for conditions other than malignant neoplasm; Z98.890 Other specified postprocedural states; Z23 Encounter for immunization; Z87.19 Personal history of other diseases of the digestive system

== ENCOUNTER → 2025-06-19 13:07 | Outpatient (BNVA) | payer OTHER, SELFPAY | PROVIDERS: PCP Nurse Practitioner Family; Visit Provider Nurse Practitioner Family | DX: Z09 Encounter for follow-up examination after completed treatment for conditions other than malignant neoplasm (principal); Z23 Encounter for immunization; Z98.890 Other specified postprocedural states; Z87.19 Personal history of other diseases of the digestive system | CPT/HCPCS: 90471; 90656 ==

== ENCOUNTER → 2025-06-20 15:03 | Outpatient (REF) | payer OTHER, SELFPAY ==
--- OUTSIDE RECORDS SUMMARY | 2025-06-20 16:47 | XMS_ITS | Clinical Summary ---
Author Organization [facility] Address [address] [address] Phone Care Team Providers Care Stereotyper Helper Name Role Phone Unavailable Primary Care Provider [...] It is not the complete legal health record.[facility]
== END ==
LOC: HO.SL 15:03
PROVIDERS: PCP Nurse Practitioner Family; Visit Provider Physician Assistant Medical
DX: G47.33 Obstructive sleep apnea (adult) (pediatric) (principal); G47.19 Other hypersomnia; R06.83 Snoring; R40.0 Somnolence
CPT/HCPCS: 95806

== ENCOUNTER → 2025-06-23 15:21 | Outpatient (BNV) | payer OTHER, SELFPAY | PROVIDERS: PCP Nurse Practitioner Family; Visit Provider Psychiatry & Neurology Neurology | DX: G47.33 Obstructive sleep apnea (adult) (pediatric) (principal) | CPT/HCPCS: 95806 ==

== ENCOUNTER 2025-06-30 09:50 | Outpatient (AMB) | payer OTHER, SELFPAY ==
--- NOTE | 2025-06-30 09:57 | MHC.OFFVIS ---
Vital Signs 06/30/25 10:09 Height 5 ft 10 in Weight 231 lb 7.766 oz BMI 33.2 Respiration 16 Pulse 72 Intake Visit Reasons: s/p Multiple incisional hernias w/mesh Intake Note: Patient is seen in office for post op assessment post multiple incisional hernias. Pt c/o: admits to sore, bruise and tender, minimal redness around the shannon, denies discharge Angiography Technologist Required: No Accompanied by: Self / Same As Patient Allergies cat dander Allergy (Intermediate, Verified 06/30/25 10:06) Sneezing dog dander Allergy (Intermediate, Verified 06/30/25 10:06) Sneezing Seasonal Allergies Allergy (Intermediate, Verified 06/30/25 10:06) Sneezing HPI HPI s/p Multiple incisional hernias w/mesh: Details: 65 year old male presenting for wound check and follow up after undergoing Repair of multiple incisional hernias with large Ventrio mesh, 11 x 14 cm, with extensive lysis of adhesions on 06/09/[address] Garcia. HE tolerated the procedure well. He was admitted for pain control post operatively and had an uncomplicated recovery course and was discharged on POD #2. He reports doing ok since discharge. He is still taking the percocet every 6 hours on schedule. He did struggle with constipation but is taking miralax and stool softeners as needed which helps. He is eating ok. He continues to wear his abdominal binder daily. He is asking about lifting restrictions and returning to work. He has no concerns. He denies fevers, chills, nausea, vomiting, diarrhea, chest pain, difficulty breathing. PEND[facility] SALE TO [facility] Medical History CAP (community acquired pneumonia) History of pneumonia (11/2024) Back pain History of blood transfusion Hx of diverticulitis of colon (~2014) Dry eye Environmental allergies Seasonal allergies NAHID on CPAP CAD (coronary artery disease) Hx of myocardial infarction (~2013) Incisional hernia Stenosis of other cardiac prosthetic devices, implants and grafts, initial encounter Psoriasis Plantar fasciitis Shoulder injury Heart disease High cholesterol High blood pressure Surgical History (Updated 06/30/25 @ 10:11 by TRUDI Raymundo) History of incisional hernia repair (06/09/25) H/O heart artery stent Hx of repair of left rotator cuff (~2013) History of colon resection (~2014) History of laparotomy (~2014) Hx of coronary artery bypass graft (2015) History of colonoscopy (~07/2024) H/O angioplasty Status post aorto-coronary artery bypass graft H/O turbinectomy H/O endoscopic sinus surgery H/O nasal septoplasty Family History Mother Ovarian cancer Father High blood pressure High blood cholesterol Cardiovascular disease Unknown High blood pressure High blood cholesterol Cardiovascular disease Social History Household Members: Spouse Housing: House Are you a primary day care worker to a significant other at home: No Do you presently have visiting nurse or other home services: No Alcohol intake: current Comment: social Patient Tobacco Use Status: Former Tobacco user Tobacco use type: Cigarette e-Cigarette/Vaping Use: Never Used service: No Current occupational status: employed 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 Cognitive needs: No Hearing needs: No Vision needs: Yes Review of Systems Const All systems reviewed & are unremarkable except as noted in HPI and below Physical Exam Vital Signs: Last Vital Signs Pulse 72 06/30/25 10:09 Resp 16 06/30/25 10:09 BMI result Body Mass Index 33.2 Const General: comfortable, no acute distress and alert Orientation/consciousness: patient oriented x3 Resp Effort & Inspection: normal respiratory effort and able to speak in complete sentences GI Other: protuberant abdomen incision clean and wound edges well approximated, shannon intact and removed uneventfully, no surrounding erythema or edema, mild induration at umbilicus and superior aspect of incision he does have a moderate soft bulge which is fluctuant just lateral to incision on right more superiorly suggestive of seroma without overlying skin changes mild incisional tenderness abdomen soft, nondistended Percussion: Yes normal to percussion Skin General skin exam: no rashes or lesions noted and no jaundice Neuro General: patient oriented x3 and moves all extremities Assessment & Plan Assessment & Plan (1) S/P hernia repair: Onset Date: ~05/2025 Code(s): Z98.890 - Other specified postprocedural states; Z87.19 - Personal history of other diseases of the digestive system Category: Surgical Plan 65 year old male s/p repair of multiple incisional hernias with large Ventrio mesh, 11 x 14 cm, with extensive lysis of adhesions on 06/09/25. He tolerated the procedure well and was admitted for post operative pain after and had an uncomplicated recovery course with discharge on POD #2. His abdomen is benign with clean incision, shannon removed. He does have a seroma on the right without overlying skin changes. No drainage noted. This was discussed with him and reassured the hernia had not recurred and it will improve with time. He was encouraged to begin to decrease the amount of narcotics and just take as needed instead of scheduled. He should continue a daily bowel regimen while he takes narcotics and until his bowels return to normal. He is to continue no heavy lifting or strenuous lifting restrictions for another 3 weeks. He can return to work as tolerated. He is to follow up in 1 month or sooner if he develops concerns. Patient comfortable with plan. Coding Level of Care Code Est Pt Level 3 (81238) Diagnoses S/P hernia repair Z98.890; Z87.19
[2025-06-30 10:09] VITALS: PULSE 72; RESP 16; BMI 33.2
--- OUTSIDE RECORDS SUMMARY | 2025-06-30 10:31 | XMS_ITS | Clinical Summary ---
Author Organization [facility] Address [address] [address] Phone Care Team Providers Care Box Cutter Name Role Phone Unavailable Primary Care Provider [...] It is not the complete legal health record.[facility]
--- OUTSIDE RECORDS SUMMARY | 2025-06-30 10:31 | XMS_ITS | Data Portability ---
Author Organization [facility] [id number] Address [address] [place] [address] Assessment No assessment recorded. Plan of Treatment [...] ICD10 Code Diagnosis IMO Codes Diagnosis Note [id number] [address] [place] [address] [address] [address] 11/13/2017 11:47:20 11/13/2017 13:02:[id number] [place] [address] [address] [address] 07/01/2019 15:10:17 07/01/2019 17:19:[id number] [place] [address] [address] 07/01/2019 17:05:04 07/01/2019 17:21:[id number] [place] [address] [address] [address] 01/18/2019 15:42:44 01/18/2019 16:43:48 [id number] [address] [address] [address] 12/15/2020 10:59:24 12/15/2020 11:35:03 Health Concerns Section Related Observation LastModified by Organization Detai ls LastModified Time None Recorded Concern Status LastModified by Organization Details LastModified Time None Recorded Advance Directives Directive None Recorded Payers Insurance Date Sequence Insurance Name Policy Number Policy Mata Covered Member ID Mata Member ID Guarantor Name 10/08/2024 1 [facility] [id number] John Quinn [id number] John Quinn 10/08/2024 1 [id number] John Quinn [id number] John Quinn
== END 2025-06-30 10:26 | disposition home or self-care (01) ==
LOC: HO.HGS 09:51
PROVIDERS: PCP Nurse Practitioner Family; Visit Provider Physician Assistant Surgical
DX: Z98.890 Other specified postprocedural states (principal); Z87.19 Personal history of other diseases of the digestive system
CPT/HCPCS: 99213

== ENCOUNTER 2025-07-17 09:22 | Outpatient (AMB) | payer OTHER, SELFPAY ==
[2025-07-17 09:23] VITALS: BMI 34.0
--- NOTE | 2025-07-17 09:23 | A.OFFVIS_ITS ---
Vital Signs 07/17/25 09:23 Height 5 ft 10 in Weight 237 lb BMI 34.0 Intake Visit Reasons: wound check, s/p hernia repair(ok per ) Intake Note: Patient presents for wound check status post hernia repair. Pt c/o; wound check. Flight Communications Operator Required: No Accompanied by: Self / Same As Patient Allergies cat dander Allergy (Intermediate, Verified 07/17/25 09:29) Sneezing dog dander Allergy (Intermediate, Verified 07/17/25 09:29) Sneezing Seasonal Allergies Allergy (Intermediate, Verified 07/17/25 09:29) Sneezing Medication List - Last Reconciled 07/17/25 by Stoney Garcia MD albuterol sulfate 90 mcg/actuation 2 puffs inhalation Q4-6H PRN aspirin 81 mg PO .DAILY@1700 atorvastatin 80 mg PO .DAILY@1700 bisacodyl (Dulcolax (bisacodyl)) 5 mg PO BEDTIME 2 days bupropion HCl XL (Wellbutrin XL) 150 mg PO .DAILY@1700 celecoxib (Celebrex) 200 mg PO Q12H PRN 1 month clopidogrel 75 mg PO .DAILY@1700 coQ10 (ubiquinol) (Qunol Tony CoQ10) 100 mg PO .DAILY@1700 docusate sodium (Colace) 100 mg PO BID docusate sodium (Colace) 100 mg PO BID fluticasone propionate 50 mcg/actuation (Flonase Allergy Relief) 2 sprays intranasal DAILY PRN isosorbide mononitrate ER 30 mg PO .DAILY@1700 mecobalamin (vitamin B12) 2,500 mcg PO .DAILY@1700 metoprolol succinate ER 50 mg PO .DAILY@1700 omega-3 acid ethyl esters 1 cap PO .DAILY@1700 oxycodone-acetaminophen 5-325 mg (Percocet) 1 tab PO Q6H PRN peg 400-propylene glycol (PF) 0.4-0.3 % (Systane (PF)) 1 drp ophthalmic (eye) 6XD PRN polyethylene glycol 3350 (Miralax) 17 grams PO DAILY sertraline 100 mg PO .DAILY@1700 HPI HPI wound check, s/p hernia repair(ok per ): Details: He underwent repair of multiple ventral hernias using a large Ventrio mesh last 06/09/2025. He had called the office last week as he said he had some scanty drainage from 1 area of the incision. He says that this has happened a couple of times. He says that this has not a lot. He denies any significant pain. He has good oral intake. [facility] Medical History Postoperative incisional hernia CAP (community acquired pneumonia) History of pneumonia (11/2024) Back pain History of blood transfusion Hx of diverticulitis of colon (~2014) Dry eye Environmental allergies Seasonal allergies NAHID on CPAP CAD (coronary artery disease) Hx of myocardial infarction (~2013) Incisional hernia Stenosis of other cardiac prosthetic devices, implants and grafts, initial encounter Psoriasis Plantar fasciitis Shoulder injury Heart disease High cholesterol High blood pressure Surgical History History of incisional hernia repair (06/09/25) H/O heart artery stent Hx of repair of left rotator cuff (~2013) History of colon resection (~2014) History of laparotomy (~2014) Hx of coronary artery bypass graft (2015) History of colonoscopy (~07/2024) H/O angioplasty Status post aorto-coronary artery bypass graft H/O turbinectomy H/O endoscopic sinus surgery H/O nasal septoplasty Family History Mother Ovarian cancer Father High blood pressure High blood cholesterol Cardiovascular disease Unknown High blood pressure High blood cholesterol Cardiovascular disease Social History Household Members: Spouse Housing: House Are you a primary manager urgent care to a significant other at home: No Do you presently have visiting nurse or other home services: No Alcohol intake: current Comment: social Patient Tobacco Use Status: Former Tobacco user Tobacco use type: Cigarette e-Cigarette/Vaping Use: Never Used service: No Current occupational status: employed 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 Cognitive needs: No Hearing needs: No Vision needs: Yes Review of Systems Const Denies chills and Denies fever(s) Card Denies chest pain, Denies dyspnea and Denies dyspnea on exertion Resp Denies cough, Denies dyspnea and Denies dyspnea on exertion GI Denies hematochezia and Denies change in bowel habits Denies hematuria and Denies difficulty urinating Musc Denies back pain and Denies limited range of motion Neuro Denies focal weakness and Denies convulsions Psych Denies depression and Denies mood swings Physical Exam Const General: comfortable and no acute distress GI Other: Hernia repair incision is well healed with 1 small area of scabbing currently dry without any active drainage, no fluctuance, no induration Palpation (GI): Soft to palpation, not firm, nontender and no guarding Assessment & Plan Assessment & Plan (1) Postoperative incisional hernia: Code(s): K43.2 - Incisional hernia without obstruction or gangrene Category: Medical Plan: He had he had because of some scanty drainage from 1 area of the incision. I assured him that this has probably an area in the subcutaneous layer this has not completely healed which drained spontaneously. I told him to do good wound care. I also instructed to massage the area to promote drainage of any residual collection He can come to the office on a p.r.n. basis. Coding Level of Care Code Global (11126) Diagnoses Postoperative incisional hernia K43.2
== END 2025-07-17 09:51 | disposition home or self-care (01) ==
LOC: HO.HGS 09:23
PROVIDERS: PCP Nurse Practitioner Family; Visit Provider Surgery
DX: K43.2 Incisional hernia without obstruction or gangrene (principal)
CPT/HCPCS: 99213